=== PATIENT | male | born 1955 | race Caucasian/White ===

== ENCOUNTER 2022-01-11 09:20 | Outpatient (CLI) | payer MEDICARE, SELFPAY ==
[2022-01-11 10:40] LABS: Alanine Aminotransferase 32 U/L (16-63); Albumin Level 3.5 g/dL (3.4-5.0); Alkaline Phosphatase 75 U/L (46-116); Anion Gap 8 mmol/L (8-16); Aspartate Amino Transferase 23 U/L (15-37); Bilirubin,Total 0.6 mg/dL (0.00-1.00); Blood Urea Nitrogen 20 mg/dL (7-18); Carbon Dioxide 29 mmol/L (21-32); Chloride 102 mmol/L (98-108); Cholesterol 144 mg/dL (0-200); Estimated Glomerular Filt Rate > 60; Glucose 101 mg/dL (70-99); HDL Direct 61 mg/dL (40-60); LDL Cholesterol Calculated 68 mg/dL (<130); Osmolality Calculated 290 mOsm/kg (285-295); Potassium 4.4 mmol/L (3.5-5.1); Sodium 139 mmol/L (136-145); Total Protein 6.3 g/dL (6.4-8.2); Triglycerides 74 mg/dL (0-150)
[2022-01-11 10:41] LABS: Hematocrit 45.5 % (37.0-46.0); Hemoglobin 15.4 g/dL (12.4-15.3); Mean Corpuscular HGB Conc 33.8 g/dL (32.0-36.0); Mean Corpuscular Hemoglobin 32.8 pg (27.0-31.0); Mean Corpuscular Volume 96.8 fL (78.0-102.0); Mean Platelet Volume 10.4 fl (8.7-11.0); Platelet Count Result 238 K/mm3 (150-420); Red Cell Distribution Width 13.2 % (11.6-14.4); White Blood Count 6.8 K/mm3 (4.8-10.8)
[2022-01-11 10:45] LABS: Calcium 8.7 mg/dL (8.5-10.1)
== END 2022-01-11 09:21 | disposition home or self-care (01) ==
LOC: CHSLAB 09:23
PROVIDERS: PCP Family Medicine; Visit Provider Family Medicine
DX: E78.5 Hyperlipidemia, unspecified (principal); I10 Essential (primary) hypertension
CPT/HCPCS: 36415; 80053; 80061; 85027

== ENCOUNTER 2022-02-27 11:11 | Outpatient (CLI) | payer MEDICARE, BC, SELFPAY ==
--- NOTE | ~2022-02-27 | XR_ITS ---
EXAMINATION: XR chest 2V DATE: 02/27/2022 11:23 INDICATION: History of traumatic pneumothorax TECHNIQUE: PA and lateral views of the chest are obtained. COMPARISON: None available FINDINGS: There are multiple displaced right rib fractures. No definite pneumothorax is identified. T here is a small right pleural effusion. Airspace opacities of the right mid and lower lung zones like ly reflect atelectasis. The left lung is clear. The cardiomediastinal silhouette is normal. There are bridging osteophytes at multiple levels in the spine, consistent with diffuse idiopathic skeletal hy perostosis (DISH). A round metallic density projects in the right lung apex. IMPRESSION: 1. Multiple displaced right-sided rib fractures. No definite persistent pneumothorax identified. 2. Small right pleural effusion with likely passive atelectasis in the right mid and lower lung zones . Reviewed, dictated and finalized at location F. IMPRESSION: 1. Multiple displaced right-sided rib fractures. No definite persistent pneumot horax identified. 2. Small right pleural effusion with likely passive atelectasis in the right mi d and lower lung zones.
== END 2022-02-27 11:12 | disposition home or self-care (01) ==
LOC: CHSIMG 11:14
PROVIDERS: PCP Family Medicine; Visit Provider Family Medicine
DX: S27.0XXA Traumatic pneumothorax, initial encounter (principal)
CPT/HCPCS: 71046

== ENCOUNTER 2022-08-27 09:15 | Outpatient (CLI) | payer MEDICARE, BC, SELFPAY ==
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
== END 2022-08-27 09:16 | disposition home or self-care (01) ==
LOC: CHSIMG 09:16
PROVIDERS: PCP Family Medicine; Visit Provider Family Medicine
DX: R10.9 Unspecified abdominal pain (principal); S27.0XXA Traumatic pneumothorax, initial encounter
CPT/HCPCS: 71250; 74150

== ENCOUNTER 2023-07-09 09:06 | Outpatient (CLI) | payer MEDICARE, SELFPAY ==
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
== END 2023-07-09 09:07 | disposition home or self-care (01) ==
LOC: CHSIMG 09:07
PROVIDERS: PCP Family Medicine; Visit Provider Family Medicine
DX: J32.9 Chronic sinusitis, unspecified (principal); L72.3 Sebaceous cyst
CPT/HCPCS: 70486

== ENCOUNTER 2023-07-14 08:40 | Emergency (ER) | payer MEDICARE, SELFPAY ==
[2023-07-14 08:40] VITALS: BP 122/83; PULSE 79; RESP 18; TEMP 36; O2SAT 98
--- NOTE | 2023-07-14 09:03 | ED.DIZZY ---
HPI - Dizziness General Chief Complaint: Dizziness Stated Complaint: dizzy Time Seen by Provider: 07/14/23 09:02 Source: patient Mode of arrival: ambulatory Limitations: no limitations History of Present Illness HPI Narrative: last night around 7:00 p.m. patient got up rolled over stood up out of bed got lightheaded. He walked about 20 ft almost passed out. This happened 3 or 4 times. Vomit around 8:00 p.m. and again this morning. He had another diarrheal stool loose watery he thought maybe there were some blood in it. Release the red color. Denies any fever cough shortness of breath. He has had runny nose and sinus drainage and congestion. Denies any other bleeding. Denies any bruising rash or itching lumps or bumps or swelling numbness or tingling weakness. Denies any problems eating or drinking or voiding. Feels nauseated. Denies any heart disease lung disease diabetes stroke anemia cancer thyroid disease intestinal Disease or arthritis. Denies any other complaints. past medical history he has had 12 rib fractures from 8 ft fall from a ladder over a year ago complains of chronic pain in his sides his ribcage. Hypertension hyperlipidemia Past surgeries cyst office back and a right total knee. Related Data Home Medications Medication Instructions Recorded Confirmed fexofenadine 180 mg tablet 180 mg PO DAILY 07/04/23 07/14/23 (Allergy Relief (fexofenadine)) fluticasone furoate 50 2 inh inhalation DAILY 07/04/23 07/14/23 mcg/actuation blister powder for inhalation Allergies Allergy/AdvReac Type Severity Reaction Status Date / Time No Known Allergies Allergy Verified 07/14/23 08:41 [facility] Past Medical History Medical History Abdominal pain Allergies Hyperlipidemia Hypertension Surgical History Surgical History History of right knee surgery Right Knee Replacement Social History Social History Smoking status: Former smoker Alcohol intake: current Alcohol use details: Daily Substance use: current Substance use type: marijuana Exam Narrative: White male patient no apparent distress.? Head normocephalic, atraumatic.? Eyes conjunctiva pink sclera nonicteric.? no nystagmus. Extraocular movements are intact.? Ears externally normal.? Oropharynx is clear with moist mucous membranes without exudates.? Neck is supple nontender no lymphadenopathy.? Back is nontender.? Lungs are clear.? Heart is regular rate and rhythm without gallops or rubs.? He has a 1/6 systolic murmur right sternal border. he is orthostatic when he stands, up his heart rate goes up. Chest wall is nontender.? Abdomen is soft and nontender no hepatosplenomegaly or masses no CVA tenderness no abdominal bruits.? Extremities no cyanosis clubbing or edema.? Skin is warm and dry without rashes or lesions.? Neurological patient is alert and oriented x4.? Motor and sensory grossly intact.? Gait is normal. Course Vital Signs Vital signs: Vital Signs Temperature 36.0 C L 07/14/23 08:40 Pulse Rate 79 07/14/23 08:40 Respiratory Rate 18 07/14/23 08:40 Blood Pressure 122/83 07/14/23 08:40 Pulse Oximetry 98 07/14/23 08:40 Oxygen Delivery Room Air 07/14/23 08:40 Temperature 36.0 C L 07/14/23 08:40 Pulse Rate 79 07/14/23 08:40 Respiratory Rate 18 07/14/23 08:40 Blood Pressure 122/83 07/14/23 08:40 Pulse Oximetry 98 07/14/23 08:40 Oxygen Delivery Room Air 07/14/23 08:40 MDM - Dizziness MDM Narrative Medical decision making narrative: patient was placed in room 2 history and physical were performed with his present. IV of normal saline bolus was given and Zofran 4 mg IV were given. Labs were drawn. CBC showed H&H 11 and 31.8 otherwise was normal. CMP showed a BUN of 28 with total protein of 5.8
[2023-07-14] MEDS: ONDANSETRON INJ 4 MG/2 ML VIAL IV PUSH (09:43)
[2023-07-14] MEDS: SODIUM CHLORIDE 0.9% IV 1,000 ML 999 ML IV CONT (09:43)
[2023-07-14 09:53] LABS: Hematocrit 31.8 % (37.0-46.0); Mean Corpuscular HGB Conc 34.6 g/dL (32.0-36.0); Mean Corpuscular Hemoglobin 33.6 pg (27.0-31.0); Mean Corpuscular Volume 97.2 fL (78.0-102.0); Platelet Count Result 216 K/mm3 (150-420); Red Blood Count 3.27 M/mm3 (4.70-6.10); Red Cell Distribution Width 12.4 % (11.6-14.4); White Blood Count 7.1 K/mm3 (4.8-10.8)
[2023-07-14 10:08] LABS: Alanine Aminotransferase 25 U/L (16-63); Albumin Level 3.2 g/dL (3.4-5.0); Alkaline Phosphatase 61 U/L (46-116); Anion Gap 5 mmol/L (8-16); Aspartate Amino Transferase 14 U/L (15-37); Bilirubin,Total 0.4 mg/dL (0.00-1.00); Blood Urea Nitrogen 28 mg/dL (7-18); Calcium 8.8 mg/dL (8.5-10.1); Carbon Dioxide 30 mmol/L (21-32); Chloride 105 mmol/L (98-108); Estimated CRCL calculation 88 ml/min; Estimated Glomerular Filt Rate > 60; Glucose 106 mg/dL (70-99); Osmolality Calculated 295 mOsm/kg (285-295); Potassium 3.5 mmol/L (3.5-5.1); Sodium 140 mmol/L (136-145); Total Protein 5.8 g/dL (6.4-8.2)
[2023-07-14 10:15] LABS: Influenza A QL RT-PCR Negative (Negative); Influenza B QL RT-PCR Negative (Negative); RSV RNA, RT-PCR Negative (Negative); SARS-CoV-2 RNA PCR Negative (Negative)
[2023-07-14 10:49] VITALS: BP 136/78; PULSE 85; RESP 18; TEMP 36.6; O2SAT 99
== END 2023-07-14 10:55 | disposition home or self-care (01) ==
PROVIDERS: Emergency Provider Emergency Medicine; PCP Family Medicine
DX: K52.9 Noninfective gastroenteritis and colitis, unspecified (principal); D64.9 Anemia, unspecified; E78.5 Hyperlipidemia, unspecified; I10 Essential (primary) hypertension; Z79.899 Other long term (current) drug therapy; Z20.822 Contact with and (suspected) exposure to COVID-19
CPT/HCPCS: 36415; 80053; 85027; 87637; 96361; 96374; 99284; J2405; J7030

== ENCOUNTER 2023-09-24 10:30 | Emergency (ER) | payer MEDICARE, SELFPAY ==
[2023-09-24 10:30] VITALS: BP 141/79; PULSE 78; RESP 18; TEMP 36.7; O2SAT 96
--- NOTE | 2023-09-24 10:38 | ED.URI ---
HPI - URI/Sore Throat General Chief Complaint: Upper Respiratory Infection Stated Complaint: congestion chest tightness vomiting Time Seen by Provider: 09/24/23 10:37 Source: patient and RN notes reviewed Mode of arrival: ambulatory Limitations: no limitations History of Present Illness MD elicited complaint: nasal congestion and sinus pain Pertinent past history: sinusitis Onset (ago): day(s) (-) Consistency: constant Severity: moderate Description of mucous: purulent Able to tolerate fluids by mouth: Yes Exacerbating factors: nothing Relieving factors: nothing Associated symptoms: rhinorrhea, nasal congestion and nausea Treatments prior to arrival: other ( Flonase) Related Data Home Medications Medication Instructions Recorded Confirmed fexofenadine 180 mg tablet 180 mg PO DAILY 07/04/23 09/24/23 (Allergy Relief (fexofenadine)) fluticasone furoate 50 2 inh inhalation DAILY 07/04/23 09/24/23 mcg/actuation blister powder for inhalation amlodipine 10 mg tablet 10 mg PO DAILY 08/07/23 09/24/23 atorvastatin 80 mg tablet 80 mg PO DAILY 08/07/23 09/24/23 montelukast 10 mg tablet 10 mg PO DAILY 09/24/23 09/24/23 Allergies Allergy/AdvReac Type Severity Reaction Status Date / Time No Known Allergies Allergy Verified 09/24/23 10:39 Review of Systems Review of Systems: All systems reviewed & are unremarkable except as noted in HPI and below PMFSH Past Medical History Medical History Abdominal pain Allergies Hyperlipidemia Hypertension Surgical History Surgical History History of right knee surgery Right Knee Replacement Social History Social History Smoking status: Former smoker Alcohol intake: current Alcohol use details: Daily Substance use: current Substance use type: marijuana Lack of Transportation: No Lack of Food: Never True Current Housing: I Have Housing Concerned About Future Housing: Decline to Answer Difficulty Paying Gas/Electric Bills: Decline to Answer Difficulty Paying for Meds: Decline to Answer Currently Unemployed: Decline to Answer Education: High School Diploma/GED Difficulty w/ Childcare or Family Care: Decline to Answer Exam Const: General: healthy appearing, no acute distress and alert Nutritional Appearance: well nourished Orientation/consciousness: patient oriented x3 Limitations: no limitations HENMT: Head: normal to inspection Ears: hearing grossly normal bilaterally and external ears normal Face/Nose/Sinus: Normal external nose present and sinus tenderness ( bilateral maxillary and left frontal) Face and sinus: normal facial exam Mouth: Yes Normal oral and palatal mucosa present and Yes moist mucous membranes Throat: tonsils normal, uvula midline and posterior oropharynx abnormal cobblestoning Eyes: Conjunctivae: conjunctivae normal EOM: EOMs intact bilaterally Neck: Neck: normal visual inspection Resp: Effort & Inspection: normal respiratory effort Auscultation: clear to auscultation bilaterally Cardio: Rate: regular rate Rhythm: regular rhythm GI: GI Palp: Yes Soft to palpation and No Tenderness to palpation present (GI) Auscultation: normal bowel sounds Back/Spine/Pelvis: Cervical Spine: cervical ROM normal Thoracic/Lumbar Spine: thoraco-lumbar ROM normal Skin: General skin exam: normal color Rashes: no rashes Neuro: General: patient oriented x3, moves all extremities, no focal motor deficits and CN's II-XI intact bilaterally Speech: normal speech Gait exam (Neuro): Normal gait present Extrem: General: normal to inspection and no clubbing, cyanosis or edema Psych: Mental Status: mental status grossly normal Affect: normal affect Attitude: cooperative MDM - URI/Sore Throat Differential Diagnosis Differential diagnosis: Likely upper respiratory infection,
== END 2023-09-24 10:59 | disposition home or self-care (01) ==
LOC: CHSED 10:52
PROVIDERS: Emergency Provider Emergency Medicine; PCP Family Medicine
DX: J01.01 Acute recurrent maxillary sinusitis (principal); E78.5 Hyperlipidemia, unspecified; I10 Essential (primary) hypertension; Z79.899 Other long term (current) drug therapy; Z87.891 Personal history of nicotine dependence
CPT/HCPCS: 99283

== ENCOUNTER 2023-11-27 13:29 | Outpatient (RCR) | payer MEDICARE, SELFPAY ==
--- NOTE | 2023-11-27 14:35 | OPREHPOC ---
Outpatient Therapy Plan of Care This is a Multidisciplinary Plan of Care that may contain components documented by all disciplines (PT, OT, and ST.) PT Problem 1 PT Problem #1 Knowledge Deficit PT Goal 1 Goal Patient to demonstrate independence with HEP Target Visit 5 PT Problem 2 PT Problem #2 Pain PT Goal 1 Goal Patient to report highest pain at 2/10 with completion of house hold activities Target Visit 10 PT Problem 3 PT Problem #3 Impaired Strength PT Goal 1 Goal Patient to demonstrate 4+/5 abdominal strength to improve ability to get up from chair at PLOF Target Visit 10 PT Problem 4 PT Problem #4 Impaired Functional Mobil PT Goal 1 Goal 1. Patient to demonstrate 20% improvement on Back Index Scoring 2. Patient to lift 20# from floor to waist with no increase in abdominal pain. Target Visit 10
--- NOTE | 2023-11-27 14:35 | PTOPEVAL1 ---
Assessment and note entered by Aliyah Guerra DPT Evaluation Information Assessment Status Evaluation Diagnosis abdominal muscle strain Onset 11/20/23 Subjective Information Patient reports he was trying to lift a garage door on 11/20/23 and felt a strain in the abdominal muscles. He reports he has a history of R sided injury with 12 broken ribs and a collapsed R lung 2 years ago. He reports he has been trying to improve his core strength but continues to have injury. He reports difficulty with getting into/ out of a chair, lifting, and completing house hold tasks. He reports he is retired. Reported Pain Level Pain Score 7: Self Report Assessment PT Clinical Summary Mr. Bowen is a 68 year old male who presents to PT with abdominal strain and pain. He demonstrates decreased core strength and impaired posture limiting his ability to get up out of a chair, lift objects and complete house hold tasks. He would benefit from skilled PT to address impairments and return to PLOF. Plan of Care Interventions Electrical Stimulation,Gait Training,Manual Therapy,Mechanical Traction,Neuro Re-education, Patient/Caregiver Educati,Therapeutic Activities, Therapeutic Exercise PT Services Indicated Yes Treatment Frequency and 2x weekly for 10 visits Duration These treatments will address the objective and functional deficits as defined above. The patient will be advanced safely and appropriately in order for the patient to progress towards his/her prior level of function. Additional exercises will be introduced and as well as a comprehensive home exercise program upon discharge, if needed, ?to ensure carryover of functional gains achieved in the clinic. This treatment plan has been reviewed and agreement upon by the patient.
--- NOTE | 2023-12-12 10:44 | OPREHPOC ---
Outpatient Therapy Plan of Care This is a Multidisciplinary Plan of Care that may contain components documented by all disciplines (PT, OT, and ST.) PT Problem 1 PT Problem #1 Knowledge Deficit PT Goal 1 Goal Patient to demonstrate independence with HEP Target Visit 5 Progress Met PT Problem 2 PT Problem #2 Pain PT Goal 1 Goal Patient to report highest pain at 2/10 with completion of house hold activities Target Visit 10 Progress Not Met PT Problem 3 PT Problem #3 Impaired Strength PT Goal 1 Goal Patient to demonstrate 4+/5 abdominal strength to improve ability to get up from chair at PLOF Target Visit 10 Progress Not Met PT Problem 4 PT Problem #4 Impaired Functional Mobil PT Goal 1 Goal 1. Patient to demonstrate 20% improvement on Back Index Scoring 2. Patient to lift 20# from floor to waist with no increase in abdominal pain. Target Visit 10 Progress Met
--- NOTE | 2023-12-12 10:44 | PTOPDC ---
Assessment and note entered by Aliyah Guerra DPT Evaluation Information Assessment Status Discharge Diagnosis abdominal muscle strain Onset 11/20/23 Subjective Information patient reports he has been compliant with HEP. he reports he has noticed some improvement but did noticed yesterday when he bends over to place heavy objects down, pain increases. he would like to self discharge today. Reported Pain Level Pain Score 3: Self Report Assessment PT Clinical Summary Mr. Bowen was seen for 4 visits of skilled PT. He has shown good compliance with HEP and has been educated on proper lifting mechanics. He continues to report soreness following placing objects to the ground. He was able to lift 20# from floor to waist for 10 reps without increase in pain today. He will be discharged at this time and continue with independent HEP. Plan of Care PT Services Indicated No
== END 2023-12-12 11:08 | disposition home or self-care (01) ==
LOC: CHSPT 13:29
PROVIDERS: PCP Family Medicine; Visit Provider Family Medicine
DX: S39.011D Strain of muscle, fascia and tendon of abdomen, subsequent encounter (principal)
CPT/HCPCS: 97110; 97140; 97161

== ENCOUNTER 2023-12-23 08:37 | Outpatient (CLI) | payer MEDICARE, SELFPAY ==
--- NOTE | ~2023-12-23 | CT_ITS ---
EXAMINATION: CT abdomen pelvis w con INDICATION: Upper abdominal pain TECHNIQUE: Computed tomographic images of the abdomen and pelvis were obtained after the administrati on of 100 cc of Omnipaque 350 intravenous contrast. The dose-length product (DLP) was 956.31 mGy-cm. Automated exposure control and iterative reconstruction technique were employed. COMPARISON: 08/27/2022 FINDINGS: The lung bases are clear. The heart size is normal. The liver, spleen, pancreas, and adrena l glands are normal. Stones are present in the nondistended gallbladder. There is a moderate sized di verticulum third portion of the duodenum. Hypoattenuating lesions in the kidneys, measuring up to 5 m m on the right, are too small to characterize but likely represent cysts. There is calcified atherosc lerosis of the aorta and many of the other arteries. No pathologically enlarged abdominal or pelvic l ymph nodes are identified. No free intraperitoneal gas or evidence of bowel obstruction. Colonic dive rticulosis is present without evidence of diverticulitis. There is a left inguinal hernia containing fat. There is moderate lumbar spondylosis. IMPRESSION: 1. No CT correlate for the patient's symptoms. Cholelithiasis without evidence of cholecystitis. Reviewed, dictated and finalized at location B. 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
[2023-12-23 08:51] LABS: Basophils Absolute Auto 0.04 K/mm3 (0.00-0.10); Basophils Percent Auto 0.5 % (0.0-1.0); Eosinophils Absolute Auto 0.12 K/mm3 (0.02-0.50); Eosinophils Percent Auto 1.6 % (1.0-6.0); Hematocrit 44.7 % (37.0-46.0); Hemoglobin 15.5 g/dL (12.4-15.3); Immature Granulocyte Absolute 0.02 K/mm3 (0.00-0.00); Immature Granulocyte Percent A 0.3 % (0.0-0.0); Lymphocytes Absolute Auto 1.96 K/mm3 (1.10-4.50); Lymphocytes Percent Auto 26.4 % (18.0-42.0); Mean Corpuscular HGB Conc 34.7 g/dL (32.0-36.0); Mean Corpuscular Hemoglobin 32.6 pg (27.0-31.0); Mean Corpuscular Volume 94.1 fL (78.0-102.0); Mean Platelet Volume 9.6 fl (8.7-11.0); Monocytes Absolute Auto 0.89 K/mm3 (0.10-0.90); Neutrophils Absolute Auto 4.4 K/mm3 (1.7-7.2); Neutrophils Percent Auto 59.2 % (50.0-70.0); Platelet Count Result 239 K/mm3 (150-420); Red Blood Count 4.75 M/mm3 (4.70-6.10); White Blood Count 7.4 K/mm3 (4.8-10.8)
[2023-12-23 09:02] LABS: Estimated Glomerular Filt Rate > 60
[2023-12-23 09:06] LABS: Alanine Aminotransferase 33 U/L (16-63); Albumin Level 3.9 g/dL (3.4-5.0); Alkaline Phosphatase 72 U/L (46-116); Anion Gap 5 mmol/L (8-16); Aspartate Amino Transferase 21 U/L (15-37); Bilirubin,Total 0.7 mg/dL (0.00-1.00); Blood Urea Nitrogen 14 mg/dL (7-18); CRP < 0.5 mg/dL (0.0-0.9); Calcium 9.2 mg/dL (8.5-10.1); Carbon Dioxide 34 mmol/L (21-32); Chloride 101 mmol/L (98-108); Glucose 135 mg/dL (70-99); Lipase 47 U/L (16-77); Osmolality Calculated 292 mOsm/kg (285-295); Potassium 3.7 mmol/L (3.5-5.1); Sodium 140 mmol/L (136-145); Total Protein 6.9 g/dL (6.4-8.2)
== END 2023-12-23 08:38 | disposition home or self-care (01) ==
PROVIDERS: PCP Family Medicine; Visit Provider Family Medicine
DX: R10.10 Upper abdominal pain, unspecified (principal); K80.20 Calculus of gallbladder without cholecystitis without obstruction
CPT/HCPCS: 36415; 74177; 80053; 83690; 85025; 86140; Q9967

== ENCOUNTER 2024-01-16 07:10 | Outpatient (CLI) | payer MEDICARE, SELFPAY ==
--- NOTE | ~2024-01-16 | NM_ITS ---
EXAMINATION: NM hepatobiliary w pharm DATE: 01/16/2024 09:55 INDICATION: Generalized abdominal pain COMPARISON: None. TECHNIQUE: 5.5 mCi Tc-99m mebrofenin (Choletec) was administered intravenously. Scintigraphic images of the abdomen were obtained for one hour. 2.09 mcg sincalide (Kinevac) was administered by slow int ravenous infusion, and imaging was continued for 30 minutes. Gallbladder ejection fraction was calcul ated by the technologist. FINDINGS: There is normal clearance of radiotracer from the blood pool. There is homogeneous tracer uptake by t he liver. Activity progresses to the gallbladder and bowel. The gallbladder ejection fraction (GBEF) is 68% (normal 10-90%, but most patient with gallbladder dysfunction have GBEF < 35% which does over lap with the normal range). IMPRESSION: 1. Normal hepatobiliary scan Reviewed, dictated and finalized at location L.
--- NOTE | ~2024-01-16 | US_ITS ---
EXAMINATION: US right upper quadrant DATE: 01/16/2024 08:38 INDICATION: Generalized abdominal pain TECHNIQUE: Multiple grayscale and Doppler ultrasound images of the abdomen were obtained. COMPARISON: None FINDINGS: The pancreatic head and body are normal in appearance. The pancreatic tail is not visualized. Liver has normal echogenicity and contour, with a smooth surface. No liver lesion identified. No intrahepat ic biliary duct dilation suspected. Portal venous flow was seen in the hepatopetal, normal direction and has normal Doppler waveform. The gallbladder is normal in appearance. There is no cholelithiasis . The common bile duct measures 6 mm, which is normal. Sonographic Iyer sign was reported as negati ve by the claim inspector. Visualized portion of the right kidney demonstrates normal contour and echogen icity with no hydronephrosis. IMPRESSION: 1. Normal right upper quadrant ultrasound. Reviewed, dictated and finalized at location L.
== END 2024-01-16 07:11 | disposition home or self-care (01) ==
PROVIDERS: PCP Family Medicine; Visit Provider Surgery
DX: R10.84 Generalized abdominal pain (principal)
CPT/HCPCS: 76705; 78227; A9537; J2805

== ENCOUNTER 2024-07-09 13:37 | Outpatient (CLI) | payer OTHER, SELFPAY ==
--- NOTE | 2024-07-09 13:55 | ECHO_ITS ---
Patient Info Name: Dominick Bowen Age: 69 years : 1955 Gender: Male Ht: 72 in Wt: 235 lbs BSA: 2.36 m2 HR: 70 bpm BP: 149 / 75 mmHg Heart Rhythm: Sinus Rhythm Technical Quality: Good Exam Date: 07/09/2024 1:51 PM Exam Location: [facility] Patient Status: Outpatient Admit Date: 07/09/2024 Staff Ordering Physician: Toña Perera MD [facility] Therapist: Carlos Eduardo De Los Santos RDCS Attending Provider: Toña Perera MD Referring Physician: Trever VIRGEN; Exam Type: CA echo doppler color flow Study Info Indications - murmur Complete two-dimensional, color flow and Doppler transthoracic echocardiogram is performed. Summary 1. Complete two-dimensional, color flow and Doppler transthoracic echocardiogram is performed. 2. Left ventricular chamber dimension is normal. 3. Left ventricular systolic function is normal, estimated at 60-65%. 4. There is moderate concentric increased left ventricular wall thickness. 5. The left ventricular diastolic function is grade I diastolic dysfunction. 6. E/e' 7 is not elevated. 7. There is severe aortic valve sclerosis. 8. There is moderate aortic valve stenosis with a peak velocity of 302 cm/s, mean gradient of 26 mmHg, and aortic valve area of 1.2 cm2. 9. There is mild aortic valve regurgitation. 10. There is mild tricuspid valve regurgitation. 11. No pulmonary hypertension, estimated pulmonary arterial systolic pressure is 36 mmHg. Left Ventricle E/e' 7 is not elevated. Left ventricular chamber dimension is normal. Left ventricular systolic function is normal, estimated at 60-65%. There is moderate concentric increased left ventricular wall thickness. The left ventricular diastolic function is grade I diastolic dysfunction. Right Ventricle Right ventricular systolic function is normal and with normal TAPSE 2.8 cm. Right ventricular chamber dimension is normal. Left Atria Left atrial chamber dimension is normal. Right Atria Right atrial chamber dimension is normal. Aortic Valve The aortic valve is trileaflet. There is severe aortic valve sclerosis. There is moderate aortic valve stenosis with a peak velocity of 302 cm/s, mean gradient of 26 mmHg, and aortic valve area of 1.2 cm2. There is mild aortic valve regurgitation. Pulmonic Valve There is no pulmonic regurgitation. Mitral Valve There is no mitral valve stenosis. There is no mitral valve regurgitation. Tricuspid Valve There is mild tricuspid valve regurgitation. No pulmonary hypertension, estimated pulmonary arterial systolic pressure is 36 mmHg. Pericardium/Pleural There is no pericardial effusion. Inferior Vena Cava Normal inferior vena cava with >50% collapse upon inspiration consistent with normal right atrial pressure, 5 mmHg. Aorta The aortic root size at the sinus of Valsalva is normal. Left Ventricular Outflow Tract Name Value Normal LVOT 2D LVOT Diameter 2.1 cm LVOT Doppler LVOT Peak Velocity 105 cm/s LVOT Peak Gradient 4 mmHg LVOT Mean Gradient 3 mmHg LVOT VTI 22 cm LVOT VTI/AV VTI Ratio 0.3 LVOT Stroke Volume 80 ml
== END 2024-07-09 13:38 | disposition home or self-care (01) ==
PROVIDERS: PCP Family Medicine
DX: R01.1 Cardiac murmur, unspecified (principal); I08.2 Rheumatic disorders of both aortic and tricuspid valves
CPT/HCPCS: 93306

== ENCOUNTER 2024-07-25 14:00 | Emergency (ER) | payer OTHER, SELFPAY ==
[2024-07-25 14:07] VITALS: BP 202/85; PULSE 68; RESP 16; TEMP 35.9; O2SAT 90
[2024-07-25 14:15] VITALS: O2SAT 90
[2024-07-25 14:33] VITALS: BP 178/75; PULSE 62; RESP 18; TEMP 36.2; O2SAT 96
--- NOTE | 2024-07-25 14:34 | ED.GENADULT ---
HPI - General Adult General Chief complaint: Upper Respiratory Infection Stated complaint: sinus pressure; vomiting Time Seen by Provider: 07/25/24 14:32 History of Present Illness HPI narrative: patient with a history of allergic sinusitis is already on a second-generation antihistamine and Flonase. He reports that starting approximately 2-3 days ago he developed new and worsening frontal and maxillary sinus pain and pressure. This is associated with increased sinus drainage in his throat that causes him to cough finally and then have some episodes of post-tussive emesis. The coughing is also causing him to have some abdominal wall muscle pain and tenderness which is bothersome to him. He states that his seasonal allergies were recently exacerbated by some post hole digging activity. Patient had a similar event approximately 6 months ago and reports that his symptoms at that time were relieved with antibiotics, anti nausea medication, and muscle relaxer. He denies having any fever, chills, shortness of breath, changes in his bladder or bowel. He denies any chest pain. Related Data Home Medications Medication Instructions Recorded Confirmed fexofenadine 180 mg tablet 180 mg PO DAILY 07/04/23 07/25/24 (Allergy Relief (fexofenadine)) fluticasone furoate 50 2 inh inhalation DAILY 07/04/23 07/25/24 mcg/actuation blister powder for inhalation amlodipine 10 mg tablet 10 mg PO DAILY 08/07/23 07/25/24 atorvastatin 80 mg tablet 40 mg PO DAILY 08/07/23 07/25/24 montelukast 10 mg tablet 10 mg PO DAILY 09/24/23 07/25/24 Allergies Allergy/AdvReac Type Severity Reaction Status Date / Time No Known Allergies Allergy Verified 07/25/24 14:14 [facility] Past Medical History Medical History Abdominal pain Allergies Hyperlipidemia Hypertension Surgical History Surgical History History of right knee surgery Right Knee Replacement Social History Social History Smoking status: Former smoker Alcohol intake: current Alcohol use details: Daily Substance use: current Substance use type: marijuana Lack of Transportation: No Lack of Food: Never True Current Housing: I Have Housing Concerned About Future Housing: Decline to Answer Difficulty Paying Gas/Electric Bills: Decline to Answer Difficulty Paying for Meds: Decline to Answer Currently Unemployed: Decline to Answer Education: High School Diploma/GED Difficulty w/ Childcare or Family Care: Decline to Answer Exam Narrative: GEN: Awake, alert, and appropriate to situation. Well appearing, well nourished, nontoxic, NAD. CV: Normal rate, regular rhythm, S1S2 no M/G/R. 2+ distal pulses all extremities. No peripheral edema noted. PULM: Non-labored respiration. Clear to auscultation bilaterally. No wheezes, rales, rhonchi. GI: Abdomen soft, non -tender to palpation. No rigidity, distention or guarding.? NEURO: Normal speech. No lateralizing or focal deficits noted. HEAD: Normocephalic, atraumatic, no visible or palpable masses, depressions, or scaring. EYES: Visual acuity intact, conjunctiva clear, sclera non-icteric, pink conjunctiva. EOM intact, PERRL. EARS: External auditory canals clear and without induration or erythema. Tympanic membranes translucent, mobile, and without bulging or erythema. Ossicles normal in appearance, hearing intact. NOSE: No external lesions, Boggy nasal terminates. Tenderness over the frontal and especially over the maxillary sinuses. Pain is made worse by leaning forward. MOUTH: Oral mucosa pink. Good salivary pool.? Dentition appears healthy without bleeding or swelling, no gingivitis. Breath did not smell malodorous or of alcohol PHARYNX: Mucosa non-inflamed, no tonsillar hypertrophy or exudate, thrush or cobble stoning NODES: No anterior or posterior cerv
== END 2024-07-25 14:43 | disposition home or self-care (01) ==
PROVIDERS: Emergency Provider Family Medicine; PCP Family Medicine
DX: J01.01 Acute recurrent maxillary sinusitis (principal); I10 Essential (primary) hypertension; E78.5 Hyperlipidemia, unspecified; Z87.891 Personal history of nicotine dependence; Z79.899 Other long term (current) drug therapy
CPT/HCPCS: 99283

== ENCOUNTER 2025-03-23 14:37 | Emergency (ER) | payer MEDICARE, SELFPAY ==
[2025-03-23 14:37] VITALS: BP 176/78; PULSE 66; RESP 16; TEMP 36.6; O2SAT 100
--- OUTSIDE RECORDS SUMMARY | 2025-03-23 14:44 | XMS_ITS | Encounter Summary ---
Author Name [facility] [place] [facility] [place] [facility] [place] [facility] [place] Address [address] [place] [address] Care Team Providers Care Blindstitch Lapel Padder Name Role Phone HARRISON SANDERSON Primary Care Provider Unavailabl e EDU TIRADO Primary Care Provider Unavailabl e Insurance Providers: All historical and current Section Date Range: From patient's date of to the date document was created. This section includes the names of all active insurance providers for the patient. Insurance Provider Type of Coverage Plan Name Start of Policy Coverage End of Policy Coverage Group Number Member ID Insurance Provider's Telephone Number Policy Michel's Name Patient's Relationship to Policy Michel [facility] (WNR) MEDICARE ADVANTAGE MCR ([facility]) Feb 02, 2023 [id number] [phone] FANTASMA CARTER PATIENT [facility] (WNR) MEDICARE ADVANTAGE MCR (R) Feb 02, 2023 [id number] FANTASMA CARTER PATIENT BCBS NE(NE) PREFERRED PROVIDER ORGANIZAT ION (PPO) BRIDG ESTON E AMERI NANDINI Nov 04, 2015 [id number] FANTASMA CARTER PATIENT BCBS NE(NE) PREFERRED PROVIDER ORGANIZAT ION (PPO) BRIDG ESTON E AMERI NANDINI Nov 04, 2015 [id number] [phone] FANTASMA CARTER PATIENT [place] ([id number]) PRESCRIPT ION BRIDG ESTON E Nov 04, 2015 [id number] FANTASMA CARTER PATIENT MEDICARE (WNR) MEDICARE (M) PART A Apr 04, 2018 PART A [id number] GEETA CARTER JR PATIENT MEDICARE (WNR) MEDICARE (M) PART A Apr 04, 2018 PART A [id number] [phone] RAUL GEETA LOVELL PATIENT [employer] BC[place]) PREFERRED PROVIDER ORGANIZAT ION (PPO) BRIDG ESTON Anna AMERI NANDINI Nov 04, 2015 [id number] [phone] FANTASMA CARTER PATIENT [employer] [place]) PREFERRED PROVIDER ORGANIZAT ION (PPO) BRIDG ESTON E AMERI NANDINI Nov 04, 2015 [id number] [phone] FANTASMA CARTER PATIENT Selected Encounter This section includes the information on record at [place] for the Encounter. Date/Time Encounter Type Encounter Description Reason Pro vider Source May 26, 2024 11:25 AM Outpatient Encounter ADMIN PAT ACTIVTIES (MASNONCT) IHE Encounter Template Text not used by [place] Plan of Treatment: Future Appointments (+ 6 months) and Future Tests (+/- 45 days) The Plan of Treatment section includes future care activities for the patient from all [place] treatmentfacilities. This section includes future appointments and future orders which are active, pending or scheduled. Future Appointments This section includes appointments that were scheduled to occur 6 months from the date of the Encounter, up to a maximum of 20 appointments. The data comes from all [place] treatment facilities. Appointment Date/Time Appointment Type Appointme nt Facility Name Jul 09, 2024 02:30 PM AMBULATORY - NONE [facility] Aug 26, 2024 10:15 AM AMBULATORY - MEDICINE [facility] Lab Results: +/- 30 days of the encounter This section includes the Chemistry and Hematology Lab Results on record with [place] for the patient. Radiology Reports and Pathology Reports are provided separately, in subsequent sections. Lab Results This section contains the Chemistry/Hematology Results that were resulted 30 days before or 30 daysafter the date of the Encounter. Date/Time Source Result Type Result - Unit Interpretation Reference Range Specimen Type Comment May 27, 2024 12:[address] [facility] OCCULT BLOOD FIT X1 SCREEN (550) FECES Specim en Type: FECES No comment entered. Ordering Provider: DAYANA BOWER Report Released Date/Time: May 26, 2024 11:09 AM Reporting Lab: [address] [phone] Performing Lab: [address] [address] OCCULT BLOOD (FIT) #1 OF 1 Negative Nega tive May 05, 2024 09:[address] [facility] CBC W/DIFF BLOOD Specimen T ype: BLOOD No comment entered. Ordering Provider: CARMEN GUIDO Report Released Date/Time: May 10, 2023 10:08 AM Reporting Lab: [address] [address] Performing Lab: [address] [phone] WBC 5.4 10*3/uL 4.0-11.0 RBC 4.53 10*6/uL 4.20-5.70 HGB 14.9 g/dL 13.0-17.0 HCT 43.1 40.0-51.0 MCV 95.1 fL 82-99 MCH 32.9 pg 27-34 MCHC 34.6 g/dL 31-37 MPV 10.4 fL 8-[address] 232 10*3/uL 130-400 RDW-CV 12.5 < 15.0 NEUTROPHILS% 61.2 LYMPHS% 23.0 MONOS% 12.3 EOS% 2.2 BASOS% 0.9 IG% 0.4 NEUTROPHILS# 3.3 10*3/uL 1.5-8.0 LYMPHS# 1.2 10*3/uL 1.0-4.0 MONOS# 0.7 10*3/uL 0.2-1.0 EOS# 0.1 10*3/uL 0-0.4 BASOS# 0.1 10*3/uL 0-0.2 IG# <0.1 10*3/uL 0-0.5 NRBC% 0.0 /100{WBCs} 0-0.2 NRBC# <0.01 10*3/uL 0-0.012 May 05, 2024 09:[address] [facility] A1C % BLOOD Specimen Type: BLOOD Comment: Normal: < or = 5.6% Pre-diabetes: 5.7-6.4% Diabetes Mellitus: > or = 6.5% Values obtained from A1C measurements can vary. For typical A1C assays, a reported value of 7.0 could actually be between 6.72 and 7.28 if measured by a reference method. A reported value of 9.0 could actually be between 8.73 and 9.27. Ref: http://www.ngsp.org/CAPdata.asp Ordering Provider: CARMEN GUIDO Report Released Date/Time: May 10, 2023 10:08 AM Reporting Lab: [address] [phone] Performing Lab: [address] [address] A1C % 5.5 0.0-5.6 May 05, 2024 09:[address] [facility] COMPREHENSIVE PNL PLASMA Specime n Type: PLASMA Comment: Low-risk levels (desirable) <200 mg/dL Moderate-risk levels (borderline) 200-239 mg/dL High-risk levels: >= 240 mg/dL Normal: <150 mg/dL -Borderline High: 1580-199 mg/dL -High: 200-499 mg/dL -Very High: >500 mg/dL eGFR was calculated using the CKD-EPI Creatinine (2020) equation. Optimal: <100 mg/dL -Near Optimal/Above Optimal: 100-129 mg/dL -Borderline High: 130-159 mg/dL -High: 160-189 mg/dL -Very High: >=190 mg/dL Ordering Provider: CARMEN GUIDO Report Released Date/Time: May 10, 2023 10:08 AM Reporting Lab: [address] [phone] Performing Lab: [address] [phone] ANION GAP 7 mmol/L 5-15 EGFR 94 mL/min > 60 GLUCOSE 94 mg/dL 70-99 POTASSIUM 3.8 mmol/L 3.5-4.7 SODIUM 138 mmol/L 136-145 BILI,TOTAL 0.7 mg/dL 0.2-1.2 PROTEIN, TOTL 6.7 g/dL 5.7-8.2 ALBUMIN 4.3 g/dL 3.4-5.0 ALKAL PHOS 86 U/L 45-117 ALT 36 U/L 10-65 AST 25 U/L 10-37 UREA NITROGEN 15 mg/dL 7-21 CALCIUM, TOTAL 9.1 mg/dL 8.7-10.4 CO2 26.0 mmol/L 21.0-32.0 CHLORIDE 105 mmol/L 98-109 CREATININE 0.81 mg/dL 0.67-1.17 May 05, 2024 09:[address] [facility] LIPID PNL PLASMA Specimen T ype: PLASMA Comment: Low-risk levels (desirable) <200 mg/dL Moderate-risk levels (borderline) 200-239 mg/dL High-risk levels: >= 240 mg/dL Normal: <150 mg/dL -Borderline High: 1580-199 mg/dL -High: 200-499 mg/dL -Very High: >500 mg/dL eGFR was calculated using the CKD-EPI Creatinine (2020) equation. Optimal: <100 mg/dL -Near Optimal/Above Optimal: 100-129 mg/dL -Borderline High: 130-159 mg/dL -High: 160-189 mg/dL -Very High: >=190 mg/dL Ordering Provider: CARMEN GUIDO Report Released Date/Time: May 10, 2023 10:08 AM Reporting Lab: [address] [phone] Performing Lab: [address] [phone] DIR. HDL 44.1 mg/dL L >=60 TRIGLYCERIDES 105 mg/dL See Comment DIR LDL canc CHOL 133 mg/dL See Comment LDL (CALCULATED) 68 mg/dL See Comment May 05, 2024 09:[address] [facility] THYROID CASCADE PANEL SERUM Spe cimen Type: SERUM Comment: PSA was performed on the Vivonet Immunoassay Analyzer. Deficiency <20, Insufficiency 20-30, Sufficiency 30-100, Toxicity >100 ng/mL Ordering Provider: CARMEN GUIDO Report Released Date/Time: May 10, 2023 10:08 AM Reporting Lab: [address] [address] Performing Lab: [address] [address] TSH3 ULTRA EIA 1.734 u[IU]/mL 0.550-4.78 0 May 05, 2024 09:[address] [facility] VITAMIN D 25-HYDROXY SERUM Spec imen Type: SERUM Comment: PSA was performed on the Siemens Atellica Immunoassay Analyzer. Deficiency <20, Insufficiency 20-30, Sufficiency 30-100, Toxicity >100 ng/mL Ordering Provider: CARMEN GUIDO Report Released Date/Time: May 10, 2023 10:08 AM Reporting Lab: [address] [phone] Performing Lab: [address] [address] VITAMIN D 25-HYDROXY 32.40 ng/mL 30-100 May 05, 2024 09:[address] [facility] PSA TOTAL EIA SERUM Specimen T ype: SERUM Comment: PSA was performed on the Siemens Atellica Immunoassay Analyzer. Deficiency <20, Insufficiency 20-30, Sufficiency 30-100, Toxicity >100 ng/mL Ordering Provider: CARMEN GUIDO Report Released Date/Time: Apr 30, 2024 10:07 AM Reporting Lab: [address] [phone] Performing Lab: [address] [address] PSA TOTAL EIA 1.83 ng/mL 0.00-4.00 Encounter Notes: All associated encounter notes This section contains the clinical notes associated to the Encounter. Date/Time Encounter Note(s) Provider Source May 26, 2024 11:25 AM PHYSICIAN NOTE: LOCAL TITLE: PROVIDER/MEDICATION RECONCILIATION STANDARD TITLE: PHYSICIAN NOTE DATE OF NOTE: MAY 26, 2024@11:25:10 ENTRY DATE: MAY 26, 2024@11:25:10 AUTHOR: DAYANA BOWER EXP COSIGNER: URGENCY: STATUS: COMPLETED [facility] [address] [place] [phone] GEETA CARTER JR MAY 26, 2024 [id number] [address] [place], [place] [address] Patient: GEETA CARTER JR (: 1955) A list of reconciled medications was mailed or sent via secure messaging to the /Caregiver. The following medication list was reviewed with the patient/caregiver: The /caregiver was counseled on new medications and/or medication changes. Potential risks, benefits, and alternative to medications prescribed were discussed with /caregiver who was given an opportunity to ask questions, which were answered to the best of my ability and seemingly to their satisfaction. /caregiver was/were instructed to contact provider (means provided) with any concerns or questions. INCLUDED IN THIS LIST: Alphabetical list of active outpatient prescriptions dispensed from this [place] (local) and dispensed from another [place] or DoD facility (remote) as well as inpatient orders (local pending and active), local clinic medications, locally documented non-VA medications, and local prescriptions that have or been discontinued in the past 90 days. NOTE The display of VA prescriptions dispensed from another VA or DoD facility (remote) is limited to active outpatient prescription entries matched to National Drug File at the originating site and may not include some items such as investigational drugs, compounds, etc. NOT INCLUDED IN THIS LIST: Medications self-entered by the patient into personal health records (i.e. [facility]) are not included in this list. Non-VA medications documented outside this [place], remote inpatient orders (regardless of status) and remote clinic medications are NOT included in this list. The patient and provider must always discuss medications the patient is taking, regardless of where the medication was dispensed or obtained. Patient safety alert: Medications and allergies from [facility] facilities may be incomplete. Reference [facility] for full list. Allergies/ADRs [facility] Facilities No Allergy/ADR Data available [facility] No Allergy/ADR Data available Med Reconciliation --- Patient is taking the following medications: --- AMLODIPINE BESYLATE 10MG TAB (OUTPT Status: ) Take one-half tablet by mouth every day for blood pressure Usually Taken for: Blood pressure AMLODIPINE TAB (NON-[place] Remote: [facility] Status: ACTIVE) 5mg by mouth every day Usually Taken for: Blood pressure ASPIRIN TAB,EC (NON-[place] Remote: [facility] Status: ACTIVE) 81mg by mouth every day Usually Taken for: Blood thinner ATORVASTATIN CALCIUM 80MG TAB (OUTPT Status: ) Takeone-halftabletbymouthatbedtimefor cholesterolcallyourprovider ifyouhavemusclepain,tendernessorweakn ess Usually Taken for: Cholesterol ATORVASTATIN TAB (NON-[place] Remote: [facility] Status: ACTIVE) 40mg by mouth every day Usually Taken for: Cholesterol FEXOFENADINE HCL 180MG TAB (OUTPT Status: ) Take one tablet by mouth daily Usually Taken for: Allergies FEXOFENADINE TAB (NON-[place] Remote: [facility] Status: ACTIVE) 180mg by mouth every day Usually Taken for: Allergies FLUTICASONE PROP 50MCG 120D NASAL INHL (OUTPT Status: ) 2 sprays each nostril daily Usually Taken for: Allergies FLUTICASONE PROPRIONATE SOLN,NASAL (NON-[place] Remote: [facility] Status: ACTIVE) 2 sprays each nostril every day Usually Taken for: Allergies HCTZ 12.5/LISINOPRIL 20MG TAB (OUTPT Status: ) Take 1 tablet by mouth daily for blood pressure Usually Taken for: Blood pressure/Water pill HYDROCHLOROTHIAZIDE/LISINOPRIL TAB (NON-[place] Remote: [facility] Status: ACTIVE) 1 tablet by mouth every day Usually Taken for: Blood pressure/Water pill MONTELUKAST NA 10MG TAB (OUTPT Status: ) Take one tablet by mouth every day Usually Taken for: Breathing TRIAMCINOLONE CREAM,TOP (NON-[place] Remote: [facility] Status: ACTIVE) Thin film topically twice a day Usually Taken for: Skin /es/ DAYANA BOWER Physician Toolroom Keeper Date printed: MAY 26, 2024 11:30 DAYANA Patel [facility]
--- OUTSIDE RECORDS SUMMARY | 2025-03-23 14:44 | XMS_ITS | Continuity of Care Document ---
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 It does not include entries that were removed or entered in error. Problem Status Onset Date Problem Type Date of Resolution Comments Source Allergic Rhinitis (SCT [id number]) Active Condition [place] [facility] AR - Allergic rhinitis Active Condition [facility] Benign prostatic hyperplasia Active Condition [facility] CLBP - Chronic low back pain Active Condition [facility] Eczema Active Condition [place] [facility] Hearing loss Active Condition [facility] CS Hearing Loss (SCT [id number]) [place] [facility] HLD - Hyperlipidemia Active Condition [facility] S HTN - Hypertension Active Condition [facility] HTN - Hypertension (SCT [id number]) [place] [facility] Hyperlipidemia (SCT [id number]) [facility] Impaired glucose tolerance Active Condition [facility] Low Back Pain (SCT [id number]) Active Condition Feb 11, 2019 Entered By: FLORI WHITE Comment: L5-S1 [place] [facility] OA - Osteoarthritis Active Condition [facility] S OA - Osteoarthritis (SCT [id number]) [place] [facility] Obesity [place] [facility] Prediabetes Active [place] [facility] Diagnosis: ICD-10-CM Z71.9 Counseling, unspecified Active Diagnosis [facility] Diagnosis: ICD-10-CM Z23 Encounter for immunization Active Diagnosis [facility] Diagnosis: ICD-10-CM Z00.01 Encounter for general adult medical exam w abnormal findings Active Diagnosis [facility] Medications Combined list of outpatient medications from Department of Defense and Veterans Affairs facilities.Medications provided include 1) outpatient medications from the last 15 months, and 2) patient-reported medications. Medication Details Route Status Patient Instructions Prescription Expires Prescription Number Last Dispense Date Ordering Provider Order Date Order Qty Source AMLODIPINE BESYLATE 10MG TAB TAKE ONE-HALF TABLET BY MOUTH EVERY DAY FOR BLOOD PRESSURE ORAL ACTIVE 05/27/2025 [id number] SATHISH,CRYST AL L 2023 45 [facility] AMLODIPINE BESYLATE 10MG TAB TAKE ONE-HALF TABLET BY MOUTH EVERY DAY FOR BLOOD PRESSURE ORAL DISCONT INUED 05/14/2024 [id number] FABIOLA GUIDO 2022 45 [facility] AMLODIPINE BESYLATE 10MG TAB TAKE ONE-HALF TABLET BY MOUTH EVERY DAY ORAL ACTIVE SHANK,GLE NACE B 2018 [facility] ASPIRIN 81MG TAB,EC TAKE ONE TABLET BY MOUTH EVERY DAY ORAL ACTIVE SHANK,GLE NACE B 2018 [facility] ATORVASTATI N CA 40MG TAB TAKE ONE TABLET BY MOUTH EVERY DAY ORAL ACTIVE [place]ANK,[facility] NACE B 2018 [facility] ATORVASTATI N CA 80MG TAB TAKE ONE-HALF TABLET BY MOUTH AT BEDTIME FOR CHOLESTE ROL CALL YOUR PROVIDER IF YOU HAVE MUSCLE PAIN, TENDERNE SS OR WEAKNESS ORAL ACTIVE 05/27/2025 [id number] 5 SATHISH,CRYST AL L 2023 45 [facility] ATORVASTATI N CA 80MG TAB TAKE ONE-HALF TABLET BY MOUTH AT BEDTIME FOR CHOLESTE ROL CALL YOUR PROVIDER IF YOU HAVE MUSCLE PAIN, TENDERNE SS OR WEAKNESS ORAL DISCONT INUED 05/14/2024 [id number] FABIOLA GUIDO 2022 45 [facility] FEXOFENADIN E HCL 180MG TAB TAKE ONE TABLET BY MOUTH DAILY ORAL SUSPEND ED 05/27/2025 [id number] 5 SATHISH,CRYST AL L 2023 90 [facility] FEXOFENADIN E HCL 180MG TAB TAKE ONE TABLET BY MOUTH DAILY ORAL DISCONT INUED 05/14/2024 [id number] FABIOLA GUIDO 2022 90 [facility] FEXOFENADIN E HCL 180MG TAB TAKE ONE TABLET BY MOUTH EVERY DAY ORAL ACTIVE DIRK WHITE GREG B 2018 [facility] FLUTICASONE PROPIONATE 50MCG/SPRAY SOLN,NASAL, 16GM 2 SPRAYS EACH NOSTRIL DAILY NASAL SUSPEND ED 05/27/2025 [id number] 5 SATHISH,CRYST AL L 2023 3 [facility] FLUTICASONE PROPIONATE 50MCG/SPRAY SOLN,NASAL, 16GM 2 SPRAYS EACH NOSTRIL DAILY NASAL DISCONT INUED 05/14/2024 [id number] FABIOLA GUIDO 2022 3 [facility] FLUTICASONE PROPIONATE 50MCG/SPRAY SOLN,NASAL, 16GM SQUIRT 2 SPRAYS IN EACH NOSTRIL EVERY DAY NASAL ACTIVE DIRK WHITE JUNIORE B [address] [facility] HYDROCHLORO THIAZIDE 12.5MG/ILIANA NOPRIL 20MG TAB TAKE 1 TABLET BY MOUTH DAILY FOR BLOOD PRESSURE ORAL SUSPEND ED 05/27/2025 [id number] SATHISH,CRYST AL L 2023 90 [facility] HYDROCHLORO THIAZIDE 12.5MG/ILIANA NOPRIL 20MG TAB TAKE 1 TABLET BY MOUTH DAILY FOR BLOOD PRESSURE ORAL DISCONT INUED 05/14/2024 [id number] FABIOLA GUIDO 2022 90 [facility] HYDROCHLORO THIAZIDE 12.5MG/ILIANA NOPRIL 20MG TAB TAKE ONE TABLET BY MOUTH EVERY DAY ORAL ACTIVE DIRK WHITE GREG B 2018 [facility] MONTELUKAST NA 10MG TAB TAKE ONE TABLET BY MOUTH EVERY DAY ORAL ACTIVE 05/27/2025 [id number] 5 SATHISH,CRYST AL L 2023 90 [facility] MONTELUKAST NA 10MG TAB TAKE ONE TABLET BY MOUTH EVERY DAY ORAL DISCONT INUED 05/14/2024 [id number] FABIOLA GUIDO 2022 90 [facility] TAMSULOSIN HCL 0.4MG CAP TAKE ONE CAPSULE BY MOUTH EVERY EVENING TAKE 30 MINUTES AFTER A MEAL ORAL ACTIVE 05/27/2025 [id number] SATHISH,CRYST AL L 2023 90 [facility] TRIAMCINOLO NE ACETONIDE 0.1% CREAM,TOP APPLY THIN FILM TOPICALL Y TWO TIMES A DAY NEEDED TOPICA L ACTIVE 05/27/2025 [id number] 4 SATHISH,CRYST AL L 2023 80 [facility] TRIAMCINOLO NE ACETONIDE 0.1% CREAM,TOP APPLY THIN FILM TOPICALL Y TWICE A DAY TOPICA L ACTIVE SHANKGLE NACE B 2018 [facility] [place] [facility] Immunizations Combined list of available immunizations from the Department of Defense and Veterans Affairs facilities. Immunization Series Date Given Administered By Site Reaction Lot Number CVX Code Drug Water Quality Analyst Status Comments Source INFLUENZA, HIGH-DOSE, TRIVALENT, PF 2023 MARGY JOSHUA ROBINSON LEFT DELTO ID [id number] 135 complet ed Completed Series, [facility] ZOSTER RECOMBINANT 2 2023 MARGY JOSHUA ROBISNON RIGHT DELTO ID [id number] 187 complet ed [facility] COVID-19 (MODERNA), MRNA, LNP-S, PF, 50 MCG/0.5 ML (AGES 12+ YEARS) 2023 MARGY JOSHUA ROBINSON RIGHT DELTO ID [id number] 312 complet ed Completed Series, [facility] ZOSTER RECOMBINANT 1 2023 MARGY JOSHUA ROBINSON LEFT DELTO ID [id number] 187 complet ed [facility] PNEUMOCOCCAL CONJUGATE PCV20, POLYSACCHARID E [id number] CONJUGATE, ADJUVANT, PF 1 2022 216 complet ed HISTORICA L INFORMATI ON - FROM OTHER [facility] COVID-19 (PFIZER), MRNA, LNP-S, PF, MAJO-SUCROSE, 30 MCG/0.3 ML (AGES 12+ YEARS) 6 2022 309 complet ed HISTORICA L INFORMATI ON - FROM OTHER REGISTRY, [facility] INFLUENZA, ADJUVANTED, QUADRIVALENT, PF 1 2022 205 complet ed HISTORICA L INFORMATI ON - FROM OTHER REGISTRY, [facility] COVID-19 (MODERNA), MRNA, LNP-S, BIVALENT, PF, 50 MCG/0.5 ML OR 25MCG/0.25 ML DOSE 5 2021 229 complet ed HISTORICA L INFORMATI ON - FROM OTHER REGISTRY, [facility] INFLUENZA, HIGH-DOSE, QUADRIVALENT, PF 1 2021 197 complet ed HISTORICA L INFORMATI ON - FROM OTHER REGISTRY, [facility] INFLUENZA, UNSPECIFIED FORMULATION 2021 88 complet ed HISTORICA L INFORMATI ON - FROM PATIENT'S RECALL, [facility] COVID-19 (MODERNA), MRNA, LNP-S, PF, 100 MCG/0.5ML DOSE OR 50 MCG/0.25ML DOSE 4 2021 207 complet ed HISTORICA L INFORMATI ON - FROM OTHER REGISTRY, [facility] COVID-19 (MODERNA), MRNA, LNP-S, PF, 100 MCG/0.5ML DOSE OR 50 MCG/0.25ML DOSE 3 2020 207 complet ed HISTORICA L INFORMATI ON - FROM OTHER REGISTRY, [facility] INFLUENZA, HIGH-DOSE, QUADRIVALENT, PF 1 2020 197 complet ed HISTORICA L INFORMATI ON - FROM OTHER REGISTRY, [facility] TDAP 1 2020 115 complet ed HISTORICA L INFORMATI ON - FROM OTHER REGISTRY, [facility] COVID-19 (MODERNA), MRNA, LNP-S, PF, 100 MCG/0.5ML DOSE OR 50 MCG/0.25ML DOSE 2 2020 207 complet ed [facility] COVID-19 (MODERNA), MRNA, LNP-S, PF, 100 MCG/0.5ML DOSE OR 50 MCG/0.25ML DOSE 1 2020 207 complet ed [facility] TDAP 2018 115 complet ed adacel; [id number] exp: 021 [facility] INFLUENZA, SEASONAL, INJECTABLE 2017 141 complet ed workplace [facility] [place] [facility] Results Combined list of recent chemistry, hematology and other laboratory results from Department of Defense and Veterans Affairs, ranging from 15 months to all on record, depending upon the facility. Order Name Results Value Reference Range Date Interpretation Specimen Comments Source OCCULT BLOOD FIT X1 SCREEN (550) HEMOGLOBIN .GASTROINT ESTINAL.LO WER [PRESENCE] IN STOOL BY IMMUNOASSA Y Negative 05/27 Specimen Type: FECES No comment entered. Ordering Provider: DAYANA BOWER Report Released Date/Time: May 26, 2024 11:09 AM Reporting Lab: [address] [address] Performing Lab: [address] [address] [facility] CBC W/DIFF LEUKOCYTES [#/VOLUME] IN BLOOD BY AUTOMATED COUNT 5.4 10*3/uL 4.0 - 11.0 05/05 Specimen Type: BLOOD No comment entered. Ordering Provider: YANIQUE GUIDO Report Released Date/Time: May 10, 2023 10:08 AM Reporting Lab: [address] [address] Performing Lab: [address] [address] [facility] CBC W/DIFF ERYTHROCYT ES [#/VOLUME] IN BLOOD BY AUTOMATED COUNT 4.53 10*6/uL 4.20 - 5.70 05/05 Specimen Type: BLOOD No comment entered. Ordering Provider: YANIQUE GUIDO Report Released Date/Time: May 10, 2023 10:08 AM Reporting Lab: [address] [address] Performing Lab: [place] [phone] [facility] CBC W/DIFF HEMOGLOBIN [MASS/VOLU ME] IN BLOOD 14.9 g/dL 13.0 - 17.0 05/05 Specimen Type: BLOOD No comment entered. Ordering Provider: YANIQUE GUIDO Report Released Date/Time: May 10, 2023 10:08 AM Reporting Lab: [address] [address] Performing Lab: [address] [address] [facility] CBC W/DIFF HEMATOCRIT [VOLUME FRACTION] OF BLOOD BY AUTOMATED COUNT 43.1 40.0 - 51.0 05/05 Specimen Type: BLOOD No comment entered. Ordering Provider: YANIQUE GUIDO Report Released Date/Time: May 10, 2023 10:08 AM Reporting Lab: [address] [address] Performing Lab: [address] [address] [facility] CBC W/DIFF MCV [ENTITIC VOLUME] BY AUTOMATED COUNT 95.1 fL 82 - 99 05/05 Specimen Type: BLOOD No comment entered. Ordering Provider: YANIQUE GUIDO Report Released Date/Time: May 10, 2023 10:08 AM Reporting Lab: [address] [address] Performing Lab: [address] [address] [facility] CBC W/DIFF MCHC [MASS/VOLU ME] BY AUTOMATED COUNT 32.9 pg 27 - 34 05/05 Specimen Type: BLOOD No comment entered. Ordering Provider: YANIQUE GUIDO Report Released Date/Time: May 10, 2023 10:08 AM Reporting Lab: [address] [address] Performing Lab: [address] [address] [facility] CBC W/DIFF MCHC [MASS/VOLU ME] BY AUTOMATED COUNT 34.6 g/dL 31 - 37 05/05 Specimen Type: BLOOD No comment entered. Ordering Provider: YANIQUE GUIDO Report Released Date/Time: May 10, 2023 10:08 AM Reporting Lab: [address] [address] Performing Lab: [address] [address] [facility] CBC W/DIFF PLATELET MEAN VOLUME [ENTITIC VOLUME] IN BLOOD BY AUTOMATED COUNT 10.4 fL 8 - 12 05/05 Specimen Type: BLOOD No comment entered. Ordering Provider: YANIQUE GUIDO Report Released Date/Time: May 10, 2023 10:08 AM Reporting Lab: [address] [address] Performing Lab: [facility] [address] [address] [facility] CBC W/DIFF PLATELETS [#/VOLUME] IN BLOOD BY AUTOMATED COUNT 232 10*3/uL 130 - 400 05/05 Specimen Type: BLOOD No comment entered. Ordering Provider: YANIQUE GUIDO Report Released Date/Time: May 10, 2023 10:08 AM Reporting Lab: [address] [address] Performing Lab: [address] [address] [facility] CBC W/DIFF ERYTHROCYT E DISTRIBUTI ON WIDTH [RATIO] BY AUTOMATED COUNT 12.5 < 15.0 - 15.0 05/05 Specimen Type: BLOOD No comment entered. Ordering Provider: YANIQUE GUIDO Report Released Date/Time: May 10, 2023 10:08 AM Reporting Lab: [address] [address] Performing Lab: [address] [address] [facility] CBC W/DIFF NEUTROPHIL S/100 LEUKOCYTES IN BLOOD BY AUTOMATED COUNT 61.2 05/05 Specimen Type: BLOOD No comment entered. Ordering Provider: YANIQUE GUIDO Report Released Date/Time: May 10, 2023 10:08 AM Reporting Lab: [address] [address] Performing Lab: [address] [address] [facility] CBC W/DIFF LYMPHOCYTE S/100 LEUKOCYTES IN BLOOD BY AUTOMATED COUNT 23.0 05/05 Specimen Type: BLOOD No comment entered. Ordering Provider: YANIQUE GUIDO Report Released Date/Time: May 10, 2023 10:08 AM Reporting Lab: [address] [address] Performing Lab: [address] [address] [facility] CBC W/DIFF MONOCYTES/ 100 LEUKOCYTES IN BLOOD BY AUTOMATED COUNT 12.3 05/05 Specimen Type: BLOOD No comment entered. Ordering Provider: YANIQUE GUIDO Report Released Date/Time: May 10, 2023 10:08 AM Reporting Lab: [address] [address] Performing Lab: [facility] [address] [place] [address] [facility] CBC W/DIFF EOSINOPHIL S/100 LEUKOCYTES IN BLOOD BY AUTOMATED COUNT 2.2 05/05 Specimen Type: BLOOD No comment entered. Ordering Provider: YANIQUE GUIDO Report Released Date/Time: May 10, 2023 10:08 AM Reporting Lab: [address] [address] Performing Lab: [facility] [address] [place] [address] [facility] CBC W/DIFF BASOPHILS/ 100 LEUKOCYTES IN BLOOD BY AUTOMATED COUNT 0.9 05/05 Specimen Type: BLOOD No comment entered. Ordering Provider: YANIQUE GUIDO Report Released Date/Time: May 10, 2023 10:08 AM Reporting Lab: [address] [address] Performing Lab: [address] [address] [facility] CBC W/DIFF IMMATURE GRANULOCYT ES/100 LEUKOCYTES IN BLOOD 0.4 05/05 Specimen Type: BLOOD No comment entered. Ordering Provider: YANIQUE GUIDO Report Released Date/Time: May 10, 2023 10:08 AM Reporting Lab: [address] [address] Performing Lab: [address] [address] [facility] CBC W/DIFF NEUTROPHIL S [#/VOLUME] IN BLOOD BY AUTOMATED COUNT 3.3 10*3/uL 1.5 - 8.0 05/05 Specimen Type: BLOOD No comment entered. Ordering Provider: YANIQUE GUIDO Report Released Date/Time: May 10, 2023 10:08 AM Reporting Lab: [address] [address] Performing Lab: [address] [address] [facility] CBC W/DIFF LYMPHOCYTE S [#/VOLUME] IN BLOOD BY AUTOMATED COUNT 1.2 10*3/uL 1.0 - 4.0 05/05 Specimen Type: BLOOD No comment entered. Ordering Provider: YANIQUE GUIDO Report Released Date/Time: May 10, 2023 10:08 AM Reporting Lab: [facility] [address] [facility] [address] Performing Lab: [facility] [address] [facility] [address] [facility] CBC W/DIFF MONOCYTES [#/VOLUME] IN BLOOD BY AUTOMATED COUNT 0.7 10*3/uL 0.2 - 1.0 05/05 Specimen Type: BLOOD No comment entered. Ordering Provider: YANIQUE GUIDO Report Released Date/Time: May 10, 2023 10:08 AM Reporting Lab: [address] [address] Performing Lab: [address] [address] [facility] CBC W/DIFF EOSINOPHIL S [#/VOLUME] IN BLOOD BY AUTOMATED COUNT 0.1 10*3/uL 0 - 0.4 05/05 Specimen Type: BLOOD No comment entered. Ordering Provider: YANIQUE GUIDO Report Released Date/Time: May 10, 2023 10:08 AM Reporting Lab: [facility] [address] [place] [address] Performing Lab: [address] [address] [facility] CBC W/DIFF BASOPHILS [#/VOLUME] IN BLOOD BY AUTOMATED COUNT 0.1 10*3/uL 0 - 0.2 05/05 Specimen Type: BLOOD No comment entered. Ordering Provider: YANIQUE GUIDO Report Released Date/Time: May 10, 2023 10:08 AM Reporting Lab: [facility] [address] [place] [phone] Performing Lab: [facility] [address] [place] [address] [facility] CBC W/DIFF IMMATURE GRANULOCYT ES/100 LEUKOCYTES IN BLOOD <0.110*3 /uL 0 - 0.5 05/05 Specimen Type: BLOOD No comment entered. Ordering Provider: YANIQUE GUIDO Report Released Date/Time: May 10, 2023 10:08 AM Reporting Lab: [address] [address] Performing Lab: [facility] [address] [place] [address] [facility] CBC W/DIFF NUCLEATED ERYTHROCYT ES/100 ERYTHROCYT ES IN BLOOD 0.0 /100{WBC s} 0 - 0.2 05/05 Specimen Type: BLOOD No comment entered. Ordering Provider: YANIQUE GUIDO Report Released Date/Time: May 10, 2023 10:08 AM Reporting Lab: [place] [phone] Performing Lab: [place] [phone] [facility] CBC W/DIFF NUCLEATED ERYTHROCYT ES [#/VOLUME] IN BLOOD <0.0110* 3/uL 0 - 0.012 05/05 Specimen Type: BLOOD No comment entered. Ordering Provider: YANIQUE GUIDO Report Released Date/Time: May 10, 2023 10:08 AM Reporting Lab: [place] [phone] Performing Lab: [place] [phone] [facility] A1C % HEMOGLOBIN A1C/HEMOGL OBIN.TOTAL IN BLOOD 5.5 0.0 - 5.6 05/05 Specimen Type: BLOOD Comment: Normal: < or = 5.6% Pre-diabete s: 5.7-6.4% Diabetes Mellitus: > or = 6.5% Values obtained from A1C measurement s can vary. For typical A1C assays, a reported value of 7.0 could actually be between 6.72 and 7.28 if measured by a reference method. A reported value of 9.0 could actually be between 8.73 and 9.27. Ref: http://www. ngsp.org/[place] Pdata.asp Ordering Provider: YANIQUE GUIDO Report Released Date/Time: May 10, 2023 10:08 AM Reporting Lab: [place] [phone] Performing Lab: [place] [phone] [facility] COMPREHE NSIVE PNL ANION GAP IN SERUM OR PLASMA 7 mmol/L 5 - 15 05/05 Specimen Type: PLASMA Comment: Low-risk levels (desirable) <200 mg/dL Moderate-ri sk levels (borderline ) 200-239 mg/dL High-risk levels: >= 240 mg/dL Normal: <150 mg/dL -Borderline High: 1580-199 mg/dL -High: 200-499 mg/dL -Very High: >500 mg/dL eGFR was calculated using the CKD-EPI Creatinine (2020) equation. Optimal: <100 mg/dL -Near Optimal/Abo ve Optimal: 100-129 mg/dL -Borderline High: 130-159 mg/dL -High: 160-189 mg/dL -Very High: >=190 mg/dL Ordering Provider: YANIQUE GUIDO Report Released Date/Time: May 10, 2023 10:08 AM Reporting Lab: [address] [address] Performing Lab: [address] [address] [facility] COMPREHE NSIVE PNL GLOMERULAR FILTRATION RATE/1.73 SQ M.PREDICTE D [VOLUME RATE/AREA] IN SERUM, PLASMA OR BLOOD BY CREATININE -BASED FORMULA (CKD-EPI 2020) 94 mL/min 60 05/05 Specimen Type: PLASMA Comment: Low-risk levels (desirable) <200 mg/dL Moderate-ri sk levels (borderline ) 200-239 mg/dL High-risk levels: >= 240 mg/dL Normal: <150 mg/dL -Borderline High: 1580-199 mg/dL -High: 200-499 mg/dL -Very High: >500 mg/dL eGFR was calculated using the CKD-EPI Creatinine (2020) equation. Optimal: <100 mg/dL -Near Optimal/Abo ve Optimal: 100-129 mg/dL -Borderline High: 130-159 mg/dL -High: 160-189 mg/dL -Very High: >=190 mg/dL Ordering Provider: YANIQUE GUIDO Report Released Date/Time: May 10, 2023 10:08 AM Reporting Lab: [address] [address] Performing Lab: [address] [address] [facility] COMPREHE NSIVE PNL GLUCOSE [MASS/VOLU ME] IN SERUM OR PLASMA 94 mg/dL 70 - 99 05/05 Specimen Type: PLASMA Comment: Low-risk levels (desirable) <200 mg/dL Moderate-ri sk levels (borderline ) 200-239 mg/dL High-risk levels: >= 240 mg/dL Normal: <150 mg/dL -Borderline High: 1580-199 mg/dL -High: 200-499 mg/dL -Very High: >500 mg/dL eGFR was calculated using the CKD-EPI Creatinine (2020) equation. Optimal: <100 mg/dL -Near Optimal/Abo ve Optimal: 100-129 mg/dL -Borderline High: 130-159 mg/dL -High: 160-189 mg/dL -Very High: >=190 mg/dL Ordering Provider: YANIQUE GUIDO Report Released Date/Time: May 10, 2023 10:08 AM Reporting Lab: [address] [address] Performing Lab: [address] [address] [facility] COMPREHE NSIVE PNL POTASSIUM [MOLES/VOL UME] IN SERUM OR PLASMA 3.8 mmol/L 3.5 - 4.7 05/05 Specimen Type: PLASMA Comment: Low-risk levels (desirable) <200 mg/dL Moderate-ri sk levels (borderline ) 200-239 mg/dL High-risk levels: >= 240 mg/dL Normal: <150 mg/dL -Borderline High: 1580-199 mg/dL -High: 200-499 mg/dL -Very High: >500 mg/dL eGFR was calculated using the CKD-EPI Creatinine (2020) equation. Optimal: <100 mg/dL -Near Optimal/Abo ve Optimal: 100-129 mg/dL -Borderline High: 130-159 mg/dL -High: 160-189 mg/dL -Very High: >=190 mg/dL Ordering Provider: YANIQUE GUIDO Report Released Date/Time: May 10, 2023 10:08 AM Reporting Lab: [address] [address] Performing Lab: [address] [address] [facility] COMPREHE NSIVE PNL SODIUM [MOLES/VOL UME] IN SERUM OR PLASMA 138 mmol/L 136 - 145 05/05 Specimen Type: PLASMA Comment: Low-risk levels (desirable) <200 mg/dL Moderate-ri sk levels (borderline ) 200-239 mg/dL High-risk levels: >= 240 mg/dL Normal: <150 mg/dL -Borderline High: 1580-199 mg/dL -High: 200-499 mg/dL -Very High: >500 mg/dL eGFR was calculated using the CKD-EPI Creatinine (2020) equation. Optimal: <100 mg/dL -Near Optimal/Abo ve Optimal: 100-129 mg/dL -Borderline High: 130-159 mg/dL -High: 160-189 mg/dL -Very High: >=190 mg/dL Ordering Provider: YANIQUE GUIDO Report Released Date/Time: May 10, 2023 10:08 AM Reporting Lab: [address] [address] Performing Lab: [address] [address] [facility] COMPREHE NSIVE PNL BILIRUBIN. TOTAL [MASS/VOLU ME] IN SERUM OR PLASMA 0.7 mg/dL 0.2 - 1.2 05/05 Specimen Type: PLASMA Comment: Low-risk levels (desirable) <200 mg/dL Moderate-ri sk levels (borderline ) 200-239 mg/dL High-risk levels: >= 240 mg/dL Normal: <150 mg/dL -Borderline High: 1580-199 mg/dL -High: 200-499 mg/dL -Very High: >500 mg/dL eGFR was calculated using the CKD-EPI Creatinine (2020) equation. Optimal: <100 mg/dL -Near Optimal/Abo ve Optimal: 100-129 mg/dL -Borderline High: 130-159 mg/dL -High: 160-189 mg/dL -Very High: >=190 mg/dL Ordering Provider: YANIQUE GUIDO Report Released Date/Time: May 10, 2023 10:08 AM Reporting Lab: [address] [id number] Performing Lab: [address] [phone] [facility] COMPREHE NSIVE PNL PROTEIN [MASS/VOLU ME] IN SERUM OR PLASMA 6.7 g/dL 5.7 - 8.2 05/05 Specimen Type: PLASMA Comment: Low-risk levels (desirable) <200 mg/dL Moderate-ri sk levels (borderline ) 200-239 mg/dL High-risk levels: >= 240 mg/dL Normal: <150 mg/dL -Borderline High: 1580-199 mg/dL -High: 200-499 mg/dL -Very High: >500 mg/dL eGFR was calculated using the CKD-EPI Creatinine (2020) equation. Optimal: <100 mg/dL -Near Optimal/Abo ve Optimal: 100-129 mg/dL -Borderline High: 130-159 mg/dL -High: 160-189 mg/dL -Very High: >=190 mg/dL Ordering Provider: YANIQUE GUIDO Report Released Date/Time: May 10, 2023 10:08 AM Reporting Lab: [place] [phone] Performing Lab: [place] [phone] [facility] COMPREHE NSIVE PNL ALBUMIN [MASS/VOLU ME] IN SERUM OR PLASMA 4.3 g/dL 3.4 - 5.0 05/05 Specimen Type: PLASMA Comment: Low-risk levels (desirable) <200 mg/dL Moderate-ri sk levels (borderline ) 200-239 mg/dL High-risk levels: >= 240 mg/dL Normal: <150 mg/dL -Borderline High: 1580-199 mg/dL -High: 200-499 mg/dL -Very High: >500 mg/dL eGFR was calculated using the CKD-EPI Creatinine (2020) equation. Optimal: <100 mg/dL -Near Optimal/Abo ve Optimal: 100-129 mg/dL -Borderline High: 130-159 mg/dL -High: 160-189 mg/dL -Very High: >=190 mg/dL Ordering Provider: YANIQUE GUIDO Report Released Date/Time: May 10, 2023 10:08 AM Reporting Lab: [address] [phone] Performing Lab: [address] [phone] [facility] COMPREHE NSIVE PNL ALKALINE PHOSPHATAS E [ENZYMATIC ACTIVITY/V OLUME] IN SERUM OR PLASMA 86 U/L 45 - 117 05/05 Specimen Type: PLASMA Comment: Low-risk levels (desirable) <200 mg/dL Moderate-ri sk levels (borderline ) 200-239 mg/dL High-risk levels: >= 240 mg/dL Normal: <150 mg/dL -Borderline High: 1580-199 mg/dL -High: 200-499 mg/dL -Very High: >500 mg/dL eGFR was calculated using the CKD-EPI Creatinine (2020) equation. Optimal: <100 mg/dL -Near Optimal/Abo ve Optimal: 100-129 mg/dL -Borderline High: 130-159 mg/dL -High: 160-189 mg/dL -Very High: >=190 mg/dL Ordering Provider: YANIQUE GUIDO Report Released Date/Time: May 10, 2023 10:08 AM Reporting Lab: [address] [phone] Performing Lab: [place] [phone] [facility] COMPREHE NSIVE PNL ALANINE AMINOTRANS FERASE [ENZYMATIC ACTIVITY/V OLUME] IN SERUM OR PLASMA 36 U/L 05/05 Specimen Type: PLASMA Comment: Low-risk levels (desirable) <200 mg/dL Moderate-ri sk levels (borderline ) 200-239 mg/dL High-risk levels: >= 240 mg/dL Normal: <150 mg/dL -Borderline High: 1580-199 mg/dL -High: 200-499 mg/dL -Very High: >500 mg/dL eGFR was calculated using the CKD-EPI Creatinine (2020) equation. Optimal: <100 mg/dL -Near Optimal/Abo ve Optimal: 100-129 mg/dL -Borderline High: 130-159 mg/dL -High: 160-189 mg/dL -Very High: >=190 mg/dL Ordering Provider: YANIQUE GUIDO Report Released Date/Time: May 10, 2023 10:08 AM Reporting Lab: [address] [phone] Performing Lab: [address] [phone] [facility] COMPREHE NSIVE PNL ASPARTATE AMINOTRANS FERASE [ENZYMATIC ACTIVITY/V OLUME] IN SERUM OR PLASMA 25 U/L 05/05 Specimen Type: PLASMA Comment: Low-risk levels (desirable) <200 mg/dL Moderate-ri sk levels (borderline ) 200-239 mg/dL High-risk levels: >= 240 mg/dL Normal: <150 mg/dL -Borderline High: 1580-199 mg/dL -High: 200-499 mg/dL -Very High: >500 mg/dL eGFR was calculated using the CKD-EPI Creatinine (2020) equation. Optimal: <100 mg/dL -Near Optimal/Abo ve Optimal: 100-129 mg/dL -Borderline High: 130-159 mg/dL -High: 160-189 mg/dL -Very High: >=190 mg/dL Ordering Provider: YANIQUE GUIDO Report Released Date/Time: May 10, 2023 10:08 AM Reporting Lab: [address] [phone] Performing Lab: [place] [phone] [facility] COMPREHE NSIVE PNL UREA NITROGEN [MASS/VOLU ME] IN SERUM OR PLASMA 15 mg/dL - 05/05 Specimen Type: PLASMA Comment: Low-risk levels (desirable) <200 mg/dL Moderate-ri sk levels (borderline ) 200-239 mg/dL High-risk levels: >= 240 mg/dL Normal: <150 mg/dL -Borderline High: 1580-199 mg/dL -High: 200-499 mg/dL -Very High: >500 mg/dL eGFR was calculated using the CKD-EPI Creatinine (2020) equation. Optimal: <100 mg/dL -Near Optimal/Abo ve Optimal: 100-129 mg/dL -Borderline High: 130-159 mg/dL -High: 160-189 mg/dL -Very High: >=190 mg/dL Ordering Provider: YANIQUE GUIDO Report Released Date/Time: May 10, 2023 10:08 AM Reporting Lab: [address] [phone] Performing Lab: [address] [phone] [facility] COMPREHE NSIVE PNL CALCIUM, TOTAL 9.1 mg/dL 8.7 - 10.4 05/05 Specimen Type: PLASMA Comment: Low-risk levels (desirable) <200 mg/dL Moderate-ri sk levels (borderline ) 200-239 mg/dL High-risk levels: >= 240 mg/dL Normal: <150 mg/dL -Borderline High: 1580-199 mg/dL -High: 200-499 mg/dL -Very High: >500 mg/dL eGFR was calculated using the CKD-EPI Creatinine (2020) equation. Optimal: <100 mg/dL -Near Optimal/Abo ve Optimal: 100-129 mg/dL -Borderline High: 130-159 mg/dL -High: 160-189 mg/dL -Very High: >=190 mg/dL Ordering Provider: YANIQUE GUIDO Report Released Date/Time: May 10, 2023 10:08 AM Reporting Lab: [address] [phone] Performing Lab: [address] [phone] [facility] COMPREHE NSIVE PNL CARBON DIOXIDE, TOTAL [MOLES/VOL UME] IN SERUM OR PLASMA 26.0 mmol/L 21.0 - 32.0 05/05 Specimen Type: PLASMA Comment: Low-risk levels (desirable) <200 mg/dL Moderate-ri sk levels (borderline ) 200-239 mg/dL High-risk levels: >= 240 mg/dL Normal: <150 mg/dL -Borderline High: 1580-199 mg/dL -High: 200-499 mg/dL -Very High: >500 mg/dL eGFR was calculated using the CKD-EPI Creatinine (2020) equation. Optimal: <100 mg/dL -Near Optimal/Abo ve Optimal: 100-129 mg/dL -Borderline High: 130-159 mg/dL -High: 160-189 mg/dL -Very High: >=190 mg/dL Ordering Provider: YANIQUE GUIDO Report Released Date/Time: May 10, 2023 10:08 AM Reporting Lab: [address] [phone] Performing Lab: [address] [phone] [facility] COMPREHE NSIVE PNL CHLORIDE [MOLES/VOL UME] IN SERUM OR PLASMA 105 mmol/L 98 - 109 05/05 Specimen Type: PLASMA Comment: Low-risk levels (desirable) <200 mg/dL Moderate-ri sk levels (borderline ) 200-239 mg/dL High-risk levels: >= 240 mg/dL Normal: <150 mg/dL -Borderline High: 1580-199 mg/dL -High: 200-499 mg/dL -Very High: >500 mg/dL eGFR was calculated using the CKD-EPI Creatinine (2020) equation. Optimal: <100 mg/dL -Near Optimal/Abo ve Optimal: 100-129 mg/dL -Borderline High: 130-159 mg/dL -High: 160-189 mg/dL -Very High: >=190 mg/dL Ordering Provider: YANIQUE GUIDO Report Released Date/Time: May 10, 2023 10:08 AM Reporting Lab: [address] [phone] Performing Lab: [address] [phone] [facility] COMPREHE [facility] PNL CREATININE [MASS/VOLU ME] IN URINE 0.81 mg/dL 0.67 - 1.17 05/05 [id number]||2025-03-23 16:10:00|CT_ITS|HATCHG|Imaging|[id number]|"EXAMINATION: CT abdomen pelvis w con DATE: 03/23/2025 16:04 INDICATION: abdominal pain under left rib, n/v x 9 days TECHNIQUE: Computed tomography (CT) of the abdomen and pelvis was performed with 100 mL Omnipaque-350 intravenous contrast. Automated exposure control and iterative reconstruction technique were employe d. The dose-length product was 1071.85 mGy-cm. COMPARISON: 12/23/2023. FINDINGS: Lower thorax: Aortic valve and coronary artery calcifications. Small focus of scarring/inflammation i n the peripheral right lower lobe. Liver: Subcentimeter right liver lobe hypodensity, too small to characterize, most likely represents a cyst or hemangioma. Biliary/Gallbladder: Cholelithiasis. No inflammatory change. No bile duct dilation. Pancreas: No mass or duct dilation. Spleen: Normal. Adrenals:No mass. Kidneys: No suspicious mass, obstructing stone, or hydronephrosis. Bilateral subcentimeter hypodensit ies, too small to characterize but most likely represent cysts. GI tract: Mild distal esophageal and gastric wall edema. Uncomplicated duodenal diverticula. No small or large bowel dilation. Normal appendix. Diverticulosis without diverticulitis. Mesentery/Peritoneum: No ascites, mass, or free air. Retroperitoneum: No mass. Atherosclerotic calcifications of intra-abdominal arterial vessels. Pelvis: Mild urinary bladder wall thickening in a partially distended urinary bladder. Prostatomegaly with calcifications. Soft Tissues: Small, uncomplicated fat-containing umbilical and left inguinal hernias. Bones: No acute osseous finding. Multilevel lumbar degenerative disc disease and facet arthropathy. 2 mm retrolisthesis at L2-3. Moderate central canal stenosis at L3-4 secondary to degenerative change s. IMPRESSION: Mild esophagitis/gastritis. Otherwise, no acute abdominopelvic process detected. Reviewed, dictated and finalized at location K. IMPRESSION: Mild esophagitis/gastritis. Otherwise, no acute abdominopelvic process detected. "
--- NOTE | 2025-03-23 14:53 | PC.NURSE ---
Nasal swab obtained for Covid, RSV, Flu and taken to lab
[2025-03-23] MEDS: SODIUM CHLORIDE 0.9% IV 1,000 ML 999 ML IV CONT (15:23)
[2025-03-23] MEDS: KETOROLAC 30 MG/ML VIAL (*BKC) IV PUSH (15:24)
[2025-03-23] MEDS: ONDANSETRON INJ 4 MG/2 ML VIAL IV PUSH (15:24)
[2025-03-23] MEDS: PANTOPRAZOLE SODIUM IV 40 MG VIAL IV PUSH (15:24)
[2025-03-23 15:25] LABS: Basophils Absolute Auto 0.03 K/mm3 (0.00-0.10); Basophils Percent Auto 0.4 % (0.0-1.0); Eosinophils Absolute Auto 0.03 K/mm3 (0.02-0.50); Eosinophils Percent Auto 0.4 % (1.0-6.0); Hematocrit 46.3 % (37.0-46.0); Hemoglobin 16.2 g/dL (12.4-15.3); Immature Granulocyte Absolute 0.03 K/mm3 (0.00-0.00); Immature Granulocyte Percent A 0.4 % (0.0-0.0); Lymphocytes Absolute Auto 1.31 K/mm3 (1.10-4.50); Lymphocytes Percent Auto 16.3 % (18.0-42.0); Mean Corpuscular Hemoglobin 32.4 pg (27.0-31.0); Mean Corpuscular Volume 92.6 fL (78.0-102.0); Mean Platelet Volume 9.9 fl (8.7-11.0); Monocytes Absolute Auto 0.74 K/mm3 (0.10-0.90); Monocytes Percent Auto 9.2 % (2.0-11.0); Neutrophils Absolute Auto 5.89 K/mm3 (1.70-7.20); Neutrophils Percent Auto 73.3 % (50.0-70.0); Platelet Count Result 213 K/mm3 (150-420); Red Cell Distribution Width 12.5 % (11.6-14.4)
--- OUTSIDE RECORDS SUMMARY | 2025-03-23 15:33 | XMS_ITS | Continuity of Care Document ---
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 It does not include entries that were removed or entered in error. Problem Status Onset Date Problem Type Date of Resolution Comments Source Allergic Rhinitis (SCT [id number]) Active Condition [facility] AR - Allergic rhinitis Active Condition [facility] Benign prostatic hyperplasia Active Condition [facility]CS CLBP - Chronic low back pain Active Condition [facility] Eczema Active Condition [facility], [facility] Hearing loss Active Condition [facility] H CS Hearing Loss (SCT [id number]) Active Condition [facility] HLD - Hyperlipidemia Active Condition [facility]N - Hypertension Active Condition [facility] HTN - Hypertension (SCT 28005910) [facility] Hyperlipidemia (SCT 42570442) [facility] Impaired glucose tolerance Active Condition [facility] Low Back Pain (SCT [id number]) Active Condition Feb 11, 2019 Entered By: FLORI WHITE Comment: L5-S1 [facility] OA - Osteoarthritis Active Condition [facility] OA - Osteoarthritis (SCT [id number]) Active Condition [facility] Obesity Active Condition [facility] Prediabetes Active Condition [facility] Diagnosis: ICD-10-CM Z71.9 Counseling, unspecified Active Diagnosis [facility] Diagnosis: ICD-10-CM Z23 Encounter for immunization Active Diagnosis [facility] Diagnosis: ICD-10-CM Z00.01 Encounter for general adult [...] DAY FOR BLOOD PRESSURE ORAL ACTIVE 05/27/2025 [id number] SATHISH,CRYST AL L 2023 45 [facility] AMLODIPINE BESYLATE 10MG TAB TAKE ONE-HALF TABLET BY MOUTH EVERY DAY FOR BLOOD PRESSURE ORAL DISCONT INUED 05/14/2024 [id number] FABIOLA GUIDO 2022 45 [facility] AMLODIPINE BESYLATE 10MG TAB TAKE ONE-HALF TABLET BY MOUTH EVERY DAY ORAL ACTIVE SHANK,GLE NACE B 2018 [facility] [place] ASPIRIN 81MG TAB,EC TAKE ONE TABLET BY MOUTH EVERY DAY ORAL ACTIVE SHANK,GLE NACE B 2018 [facility] [facility] ATORVASTATI N CA 40MG TAB TAKE ONE TABLET BY MOUTH EVERY DAY ORAL ACTIVE SHANK,[facility] NACE B 2018 [facility] [place] [facility] ATORVASTATI N CA 80MG TAB TAKE ONE-HALF TABLET BY MOUTH AT BEDTIME FOR CHOLESTE ROL CALL YOUR PROVIDER IF YOU HAVE MUSCLE PAIN, TENDERNE SS OR WEAKNESS ORAL ACTIVE 05/27/2025 [id number] SATHISH,CRYST AL L 2023 45 [facility] ATORVASTATI N CA 80MG TAB TAKE ONE-HALF TABLET BY MOUTH AT BEDTIME FOR CHOLESTE ROL CALL YOUR PROVIDER IF YOU HAVE MUSCLE PAIN, TENDERNE SS OR WEAKNESS ORAL DISCONT INUED 05/14/2024 [id number] FABIOLA GUIDO 2022 45 [facility] FEXOFENADIN E HCL 180MG TAB TAKE ONE TABLET BY MOUTH DAILY ORAL SUSPEND ED 05/27/2025 [id number] SATHISH,CRYST AL L 2023 90 [facility] FEXOFENADIN E HCL 180MG TAB TAKE ONE TABLET BY MOUTH DAILY ORAL DISCONT INUED 05/14/2024 [id number] FABIOLA GUIDO 2022 90 [facility] FEXOFENADIN E HCL 180MG TAB TAKE ONE TABLET BY MOUTH EVERY DAY ORAL ACTIVE DIRK WHITE GREG B 2018 [facility] [place] FLUTICASONE PROPIONATE 50MCG/SPRAY SOLN,NASAL, 16GM 2 SPRAYS EACH NOSTRIL DAILY NASAL SUSPEND ED 05/27/2025 [id number] 5 SATHISH,CRYST AL L 2023 3 [facility] FLUTICASONE PROPIONATE 50MCG/SPRAY SOLN,NASAL, 16GM 2 SPRAYS EACH NOSTRIL DAILY NASAL DISCONT INUED 05/14/2024 [id number] 4 FABIOLA GUIDO 2022 3 [facility] FLUTICASONE PROPIONATE 50MCG/SPRAY SOLN,NASAL, 16GM SQUIRT 2 SPRAYS IN EACH NOSTRIL EVERY DAY NASAL ACTIVE DIRK WHITE JUNIORE B 2018 [facility] [place] HYDROCHLORO THIAZIDE 12.5MG/ILIANA NOPRIL 20MG TAB TAKE 1 TABLET BY MOUTH DAILY FOR BLOOD PRESSURE ORAL SUSPEND ED 05/27/2025 [id number] SATHISH,CRYST AL L 2023 90 [facility] HYDROCHLORO THIAZIDE 12.5MG/ILIANA NOPRIL 20MG TAB TAKE 1 TABLET BY MOUTH DAILY FOR BLOOD PRESSURE ORAL DISCONT INUED 05/14/2024 [id number] FABIOLA GUIDO 2022 90 [facility] HYDROCHLORO THIAZIDE 12.5MG/ILIANA NOPRIL 20MG TAB TAKE ONE TABLET BY MOUTH EVERY DAY ORAL ACTIVE DIRK WHITE GREG B 2018 [facility] [place] [facility] MONTELUKAST NA 10MG TAB TAKE ONE TABLET BY MOUTH EVERY DAY ORAL ACTIVE 05/27/2025 [id number] 5 SATHISH,CRYST AL L 2023 90 [facility] MONTELUKAST NA 10MG TAB TAKE ONE TABLET BY MOUTH EVERY DAY ORAL DISCONT INUED 05/14/2024 [id number] FABIOLA GUIDO 2022 90 [facility] TAMSULOSIN HCL 0.4MG CAP TAKE ONE CAPSULE BY MOUTH EVERY EVENING TAKE 30 MINUTES AFTER A MEAL ORAL ACTIVE 05/27/2025 [id number] SATHISH,CRYST AL L 2023 90 [facility] TRIAMCINOLO NE ACETONIDE 0.1% CREAM,TOP APPLY THIN FILM TOPICALL Y TWO TIMES A DAY NEEDED TOPICA L ACTIVE 05/27/2025 [id number] SATHISH,CRYST AL L 2023 80 [facility] TRIAMCINOLO NE ACETONIDE 0.1% CREAM,TOP APPLY THIN FILM TOPICALL Y TWICE A DAY TOPICA L ACTIVE SHANKGLE NACE B 2018 [facility] [place] [facility] Immunizations Combined list of available immunizations from the Department of Defense and Veterans Affairs facilities. Immunization Series Date Given Administered By Site Reaction Lot Number CVX Code Drug Seater Grinder Status Comments Source INFLUENZA, HIGH-DOSE, TRIVALENT, PF 2023 MARGY JOSHUA ROBINSON LEFT DELTO ID [id number] 135 complet ed Completed Series, [facility] ZOSTER RECOMBINANT 2 2023 MARGY JOSHUA ROBINSON RIGHT DELTO ID [id number] 187 complet ed [facility] COVID-19 (MODERNA), MRNA, LNP-S, PF, 50 MCG/0.5 ML (AGES 12+ YEARS) 2023 MARGY JOSHUA ROBINSON RIGHT DELTO ID [id number] 312 complet ed Completed Series, [facility] ZOSTER RECOMBINANT 1 2023 MARGY JOSHUA ROBINSON LEFT DELTO ID [id number] 187 complet ed [facility] PNEUMOCOCCAL CONJUGATE PCV20, POLYSACCHARID E [id number] CONJUGATE, ADJUVANT, PF 1 2022 216 complet ed HISTORICA L INFORMATI ON - FROM OTHER [facility] COVID-19 (PFIZER), MRNA, LNP-S, PF, MAJO-SUCROSE, 30 MCG/0.3 ML (AGES 12+ YEARS) 6 2022 309 complet ed HISTORICA L INFORMATI ON - FROM OTHER REGISTRY, [facility] INFLUENZA, ADJUVANTED, QUADRIVALENT, PF 1 2022 205 complet ed HISTORICA L INFORMATI ON - FROM OTHER REGISTRY, [facility] COVID-19 (MODERNA), MRNA, LNP-S, BIVALENT, PF, 50 MCG/0.5 ML OR 25MCG/0.25 ML DOSE 5 2021 229 complet ed HISTORICA L INFORMATI ON - FROM OTHER REGISTRY, [facility] INFLUENZA, HIGH-DOSE, QUADRIVALENT, PF 1 2021 197 complet ed HISTORICA L INFORMATI ON - FROM OTHER REGISTRY, [facility] INFLUENZA, UNSPECIFIED FORMULATION 2021 88 complet ed HISTORICA L INFORMATI ON - FROM PATIENT'S RECALL, [facility] COVID-19 (MODERNA), MRNA, LNP-S, PF, 100 MCG/0.5ML DOSE OR 50 MCG/0.25ML DOSE 4 2021 207 complet ed HISTORICA L INFORMATI ON - FROM OTHER REGISTRY, [facility] COVID-19 (MODERNA), MRNA, LNP-S, PF, 100 MCG/0.5ML DOSE OR 50 MCG/0.25ML DOSE 3 2020 207 complet ed HISTORICA L INFORMATI ON - FROM OTHER REGISTRY, [facility] INFLUENZA, HIGH-DOSE, QUADRIVALENT, PF 1 2020 197 complet ed HISTORICA L INFORMATI ON - FROM OTHER REGISTRY, [facility] TDAP 1 2020 115 complet ed HISTORICA L INFORMATI ON - FROM OTHER REGISTRY, [facility] COVID-19 (MODERNA), MRNA, LNP-S, PF, 100 MCG/0.5ML DOSE OR 50 MCG/0.25ML DOSE 2 2020 207 complet ed [facility] COVID-19 (MODERNA), MRNA, LNP-S, PF, 100 MCG/0.5ML DOSE OR 50 MCG/0.25ML DOSE 1 2020 207 complet ed [facility] TDAP 2018 115 complet ed adacel; [id number] exp: 021 [facility] INFLUENZA, SEASONAL, INJECTABLE 2017 141 complet ed workplace [facility] Results Combined list of recent [...] May 26, 2024 11:09 AM Reporting Lab: [place] [phone] Performing Lab: [place] [address] [place] [address] A1C % HEMOGLOBIN A1C/HEMOGL OBIN.TOTAL IN BLOOD [...] May 10, 2023 10:08 AM Reporting Lab: [place] [phone] Performing Lab: [place] [phone] [place] [address] CBC W/DIFF LEUKOCYTES [#/VOLUME] IN BLOOD BY AUTOMATED COUNT 5.4 10*3/uL 4.0 - 11.0 05/05 Specimen Type: BLOOD No comment entered. Ordering Provider: YANIQUE GUIDO Report Released Date/Time: May 10, 2023 10:08 AM Reporting Lab: [address] [address] Performing Lab: [place] [phone] [facility] CBC W/DIFF ERYTHROCYT ES [#/VOLUME] IN BLOOD BY AUTOMATED COUNT 4.53 10*6/uL 4.20 - 5.70 05/05 Specimen Type: BLOOD No comment entered. Ordering Provider: YANIQUE GUIDO Report Released Date/Time: May 10, 2023 10:08 AM Reporting Lab: [address] [address] Performing Lab: [address] [address] [facility] CBC W/DIFF HEMOGLOBIN [MASS/VOLU ME] IN BLOOD 14.9 g/dL 13.0 - 17.0 05/05 Specimen Type: BLOOD No comment entered. Ordering Provider: YANIQUE GUIDO Report Released Date/Time: May 10, 2023 10:08 AM Reporting Lab: [address] [phone] Performing Lab: [address] [address] [facility] CBC W/DIFF HEMATOCRIT [VOLUME FRACTION] OF BLOOD BY AUTOMATED COUNT 43.1 40.0 - 51.0 05/05 Specimen Type: BLOOD No comment entered. Ordering Provider: YANIQUE GUIDO Report Released Date/Time: May 10, 2023 10:08 AM Reporting Lab: [address] [address] Performing Lab: [address] [address] [facility] CBC W/DIFF MCV [ENTITIC VOLUME] BY AUTOMATED COUNT 95.1 fL 82 - 99 05/05 Specimen Type: BLOOD No comment entered. Ordering Provider: YANIQUE GUIDO Report Released Date/Time: May 10, 2023 10:08 AM Reporting Lab: [address] [address] Performing Lab: [address] [address] [facility] CBC W/DIFF MCHC [MASS/VOLU ME] BY AUTOMATED COUNT 32.9 pg 27 - 34 05/05 Specimen Type: BLOOD No comment entered. Ordering Provider: YANIQUE GUIDO Report Released Date/Time: May 10, 2023 10:08 AM Reporting Lab: [address] [address] Performing Lab: [address] [address] [facility] CBC W/DIFF MCHC [MASS/VOLU ME] BY AUTOMATED COUNT 34.6 g/dL 31 - 37 05/05 Specimen Type: BLOOD No comment entered. Ordering Provider: YANIQUE GUIDO Report Released Date/Time: May 10, 2023 10:08 AM Reporting Lab: [address] [address] Performing Lab: [address] [address] [facility] CBC W/DIFF PLATELET MEAN VOLUME [ENTITIC VOLUME] IN BLOOD BY AUTOMATED COUNT 10.4 fL 8 - 12 05/05 Specimen Type: BLOOD No comment entered. Ordering Provider: YANIQUE GUIDO Report Released Date/Time: May 10, 2023 10:08 AM Reporting Lab: [address] [address] Performing Lab: [address] [address] [facility] CBC W/DIFF PLATELETS [#/VOLUME] IN BLOOD BY AUTOMATED COUNT 232 10*3/uL 130 - 400 05/05 Specimen Type: BLOOD No comment entered. Ordering Provider: YANIQUE GUIDO Report Released Date/Time: May 10, 2023 10:08 AM Reporting Lab: [address] [address] Performing Lab: [address] [address] [facility] CBC W/DIFF ERYTHROCYT E DISTRIBUTI ON WIDTH [RATIO] BY AUTOMATED COUNT 12.5 < 15.0 - 15.0 05/05 Specimen Type: BLOOD No comment entered. Ordering Provider: YANIQUE GUIDO Report Released Date/Time: May 10, 2023 10:08 AM Reporting Lab: [address] [address] Performing Lab: [address] [address] [facility] CBC W/DIFF NEUTROPHIL S/100 LEUKOCYTES IN BLOOD BY AUTOMATED COUNT 61.2 05/05 Specimen Type: BLOOD No comment entered. Ordering Provider: WHITE,YANIQUE N Report Released Date/Time: May 10, 2023 10:08 AM Reporting Lab: [facility] [address] [facility] [address] Performing Lab: [facility] [address] [facility] [address] [facility] CBC W/DIFF LYMPHOCYTE S/100 LEUKOCYTES IN BLOOD BY AUTOMATED COUNT 23.0 05/05 Specimen Type: BLOOD No comment entered. Ordering Provider: YANIQUE GUIDO Report Released Date/Time: May 10, 2023 10:08 AM Reporting Lab: [facility] [address] [facility] [address] Performing Lab: [facility] [address] [facility] [address] [facility] CBC W/DIFF MONOCYTES/ 100 LEUKOCYTES IN BLOOD BY AUTOMATED COUNT 12.3 05/05 Specimen Type: BLOOD No comment entered. Ordering Provider: YANIQUE GUIDO Report Released Date/Time: May 10, 2023 10:08 AM Reporting Lab: [facility] [address] [place] [phone] Performing Lab: [facility] [address] [place] [address] [facility] CBC W/DIFF EOSINOPHIL S/100 LEUKOCYTES IN BLOOD BY AUTOMATED COUNT 2.2 05/05 Specimen Type: BLOOD No comment entered. Ordering Provider: YANIQUE GUIDO Report Released Date/Time: May 10, 2023 10:08 AM Reporting Lab: [facility] [address] [facility] [address] Performing Lab: [facility] [address] [place] [phone] [facility] CBC W/DIFF BASOPHILS/ 100 LEUKOCYTES IN BLOOD BY AUTOMATED COUNT 0.9 05/05 Specimen Type: BLOOD No comment entered. Ordering Provider: YANIQUE GUIDO Report Released Date/Time: May 10, 2023 10:08 AM Reporting Lab: [facility] [address] [facility] [address] Performing Lab: [facility] [address] [place] [phone] [facility] CBC W/DIFF IMMATURE GRANULOCYT ES/100 LEUKOCYTES IN BLOOD 0.4 05/05 Specimen Type: BLOOD No comment entered. Ordering Provider: YANIQUE GUIDO Report Released Date/Time: May 10, 2023 10:08 AM Reporting Lab: [facility] [address] [facility] [address] Performing Lab: [facility] [address] [facility] [address] [facility] CBC W/DIFF NEUTROPHIL S [#/VOLUME] IN BLOOD BY AUTOMATED COUNT 3.3 10*3/uL 1.5 - 8.0 05/05 Specimen Type: BLOOD No comment entered. Ordering Provider: YANIQUE GUIDO Report Released Date/Time: May 10, 2023 10:08 AM Reporting Lab: [facility] [address] [place] [address] Performing Lab: [facility] [address] [place] [address] [facility] CBC W/DIFF LYMPHOCYTE S [#/VOLUME] IN BLOOD BY AUTOMATED COUNT 1.2 10*3/uL 1.0 - 4.0 05/05 Specimen Type: BLOOD No comment entered. Ordering Provider: YANIQUE GUIDO Report Released Date/Time: May 10, 2023 10:08 AM Reporting Lab: [facility] [address] [place] [phone] Performing Lab: [facility] [address] [place] [address] [facility] CBC W/DIFF MONOCYTES [#/VOLUME] IN BLOOD BY AUTOMATED COUNT 0.7 10*3/uL 0.2 - 1.0 05/05 Specimen Type: BLOOD No comment entered. Ordering Provider: YANIQUE GUIDO Report Released Date/Time: May 10, 2023 10:08 AM Reporting Lab: [facility] [address] [place] [address] Performing Lab: [facility] [address] [place] [address] [facility] CBC W/DIFF EOSINOPHIL S [#/VOLUME] IN BLOOD BY AUTOMATED COUNT 0.1 10*3/uL 0 - 0.4 05/05 Specimen Type: BLOOD No comment entered. Ordering Provider: YANIQUE GUIDO Report Released Date/Time: May 10, 2023 10:08 AM Reporting Lab: [address] [address] Performing Lab: [facility] [address] [place] [address] [facility] CBC W/DIFF BASOPHILS [#/VOLUME] IN BLOOD BY AUTOMATED COUNT 0.1 10*3/uL 0 - 0.2 05/05 Specimen Type: BLOOD No comment entered. Ordering Provider: YANIQUE GUIDO Report Released Date/Time: May 10, 2023 10:08 AM Reporting Lab: [address] [address] Performing Lab: [place] [phone] [facility] CBC W/DIFF IMMATURE GRANULOCYT ES/100 LEUKOCYTES IN BLOOD <0.110*3 /uL 0 - 0.5 05/05 Specimen Type: BLOOD No comment entered. Ordering Provider: YANIQUE GUIDO Report Released Date/Time: May 10, 2023 10:08 AM Reporting Lab: [address] [address] Performing Lab: [place] [phone] [facility] CBC W/DIFF NUCLEATED ERYTHROCYT ES/100 ERYTHROCYT ES IN BLOOD 0.0 /100{WBC s} 0 - 0.2 05/05 Specimen Type: BLOOD No comment entered. Ordering Provider: YANIQUE GUIDO Report Released Date/Time: May 10, 2023 10:08 AM Reporting Lab: [address] [address] Performing Lab: [address] [address] [facility] CBC W/DIFF NUCLEATED ERYTHROCYT ES [#/VOLUME] IN BLOOD <0.0110* 3/uL 0 - 0.012 05/05 Specimen Type: BLOOD No comment entered. Ordering Provider: YANIQUE GUIDO Report Released Date/Time: May 10, 2023 10:08 AM Reporting Lab: [address] [address] Performing Lab: [place] [phone] [facility] COMPREHE NSIVE PNL ANION GAP IN SERUM [...] May 10, 2023 10:08 AM Reporting Lab: [address] [address] Performing Lab: [address] [address] [facility] COMPREHE NSIVE PNL GLOMERULAR FILTRATION RATE/1.73 SQ [...] May 10, 2023 10:08 AM Reporting Lab: [address] [address] Performing Lab: [address] [address] [facility] COMPREHE NSIVE PNL GLUCOSE [MASS/VOLU ME] IN [...] May 10, 2023 10:08 AM Reporting Lab: [address] [address] Performing Lab: [address] [address] [facility] COMPREHE NSIVE PNL POTASSIUM [MOLES/VOL UME] IN [...] May 10, 2023 10:08 AM Reporting Lab: [address] [address] Performing Lab: [address] [address] [facility] COMPREHE NSIVE PNL SODIUM [MOLES/VOL UME] IN [...] May 10, 2023 10:08 AM Reporting Lab: [address] [address] Performing Lab: [address] [address] [facility] COMPREHE NSIVE PNL BILIRUBIN. TOTAL [MASS/VOLU ME] [...] May 10, 2023 10:08 AM Reporting Lab: [address] [address] Performing Lab: [address] [address] [facility] COMPREHE NSIVE PNL PROTEIN [MASS/VOLU ME] IN [...] May 10, 2023 10:08 AM Reporting Lab: [place] [phone] Performing Lab: [place] [phone] [facility] COMPREHE NSIVE PNL ALBUMIN [MASS/VOLU ME] IN [...] May 10, 2023 10:08 AM Reporting Lab: [address] [address] Performing Lab: [address] [address] [facility] COMPREHE NSIVE PNL ALKALINE PHOSPHATAS E [ENZYMATIC [...] May 10, 2023 10:08 AM Reporting Lab: [address] [address] Performing Lab: [place] [phone] [facility] COMPREHE NSIVE PNL ALANINE AMINOTRANS FERASE [ENZYMATIC [...] May 10, 2023 10:08 AM Reporting Lab: [address] [address] Performing Lab: [address] [address] [facility] COMPREHE NSIVE PNL ASPARTATE AMINOTRANS FERASE [ENZYMATIC [...] May 10, 2023 10:08 AM Reporting Lab: [address] [address] Performing Lab: [place] [phone] [facility] COMPREHE NSIVE PNL UREA NITROGEN [MASS/VOLU ME] [...] May 10, 2023 10:08 AM Reporting Lab: [address] [address] Performing Lab: [address] [address] [facility] COMPREHE NSIVE PNL CALCIUM, TOTAL 9.1 mg/dL [...] May 10, 2023 10:08 AM Reporting Lab: [address] [phone] Performing Lab: [address] [address] [facility] COMPREHE NSIVE PNL CARBON DIOXIDE, TOTAL [MOLES/VOL [...] May 10, 2023 10:08 AM Reporting Lab: [address] [address] Performing Lab: [address] [address] [facility] COMPREHE NSIVE PNL CHLORIDE [MOLES/VOL UME] IN [...] May 10, 2023 10:08 AM Reporting Lab: [facility] [address] [facility] [address] Performing Lab: [place] [id number] [facility] [address] [facility] COMPREHE NSIVE PNL CREATININE [MASS/VOLU ME] IN URINE 0.81 mg/dL 0.67 - 1.17 05/05 [id number]|2025-03-23 16:33:00|2025-03-23 16:33:00|ED_ITS|SHAWNJ|Health Information Management|[id number]|"HPI - Abdominal Pain General Chief Complaint: Abdominal Pain Stated Complaint: vomiting; sinus drainage Time Seen by Provider: 03/23/25 14:55 Source: patient Mode of arrival: ambulatory Limitations: no limitations History of Present Illness HPI narrative: Patient is a 69-year-old male with a significant past medical history presents today for abdominal pain. His abdominal pain is about a 7 of 10. He says that he has felt sick with nausea vomiting and also has upper respiratory infection symptoms as well. Cough, cold, congestion. He has had symptoms for last 3 days now. He is taking OTC medications with no relief. MD elicited complaint: abdominal pain Pertinent past history: none Onset (ago): day(s) Pain Consistency: intermittent Location: diffuse Severity: moderate Pain scale (0-10): 6 Quality: cramping and stabbing Radiation: epigastric Migration to: LLQ Exacerbating factors: eating, vomiting and medication Relieving factors: nothing Context: confirms possible food poisoning Associated symptoms: denies other symptoms Treatments prior to arrival: NSAIDs Related Data Home Medications Medication Instructions Recorded Confirmed Last Taken Type fexofenadine 180 mg tablet 180 mg PO DAILY 07/04/23 08/05/24 Unknown History (Allergy Relief (fexofenadine)) fluticasone furoate 50 2 inh inhalation DAILY 07/04/23 08/05/24 Unknown History mcg/actuation blister powder for inhalation amlodipine 10 mg tablet 10 mg PO DAILY 08/07/23 08/05/24 Unknown History atorvastatin 80 mg tablet 40 mg PO DAILY 08/07/23 08/05/24 Unknown History montelukast 10 mg tablet 10 mg PO DAILY 09/24/23 08/05/24 Unknown History Allergies Allergy/AdvReac Type Severity Reaction Status Date / Time No Known Allergies Allergy Verified 03/23/25 14:44 Review of Systems 2 Review of Systems: All systems reviewed & are unremarkable except as noted in HPI and below ROS unobtainable: Yes unobtainable due to endotracheal tube Constitutional: Constitutional: Reports as per HPI Eyes: Eyes: Reports no additional eye complaints ENT: Reports system reviewed and no additional complaints, except as documented Cardiovascular: Cardiovascular: Reports no additional cardiovascular complaints Respiratory: Respiratory: Reports no additional respiratory complaints Gastrointestinal: Gastrointestinal: Reports as per HPI, Reports abdominal pain, Reports nausea and Reports vomiting Musculoskeletal: Musculoskeletal: Reports no additional musculoskeletal complaints Integumentary/Breasts: Skin/Breast: Reports system reviewed and no additional complaints, except as docu and Reports as per HPI Neurologic: Reports system reviewed and no additional complaints, except as documented Psychiatric: Psychiatric: Reports no additional psychiatric complaints Endocrine: Endocrine: Reports no additional endocrine complaints Hematologic/Lymphatic: Hematologic/Lymphatic: Reports no additional hematologic/lymphatic complaints Allergic/Immunologic: Allergic/Immunologic: Reports no additional allergic/immunologic complaints [facility] Past Medical History Medical History Abdominal pain Allergies Hyperlipidemia Hypertension Surgical History Surgical History History of right knee surgery Right Knee Replacement Social History Social History Smoking status: Former smoker Alcohol intake: current Alcohol use details: Daily Substance use: current Substance use type: marijuana Lack of Transportation: No Lack of Food: Never True Current Housing: I Have Housing Concerned About Future Housing: Decline to Answer Difficulty Paying Gas/Electric Bills: Decline to Answer Difficulty Paying for Meds: Decline to Answer Currently Unemployed: Decline to Answer Education: High School Diploma/GED Difficulty w/ Childcare or Family Care: Decline to Answer Exam 2 Const: General: healthy appearing Nutritional Appearance: well nourished Orientation/consciousness: patient oriented x3 HENMT: Head: normal to inspection Ears: external ears normal F kenij/Nose/Sinus: Normal external nose present Face and sinus: normal facial exam Eyes: Conjunctivae: conjunctivae normal Pupils: Equal, round and reactive pupils present EOM: EOMs intact bilaterally Direct Ophthalmoscopy: no photophobia Neck: Neck: normal visual inspection Chest: Chest palpation & inspection: normal inspection of the chest Resp: Effort & Inspection: normal respiratory effort Auscultation: clear to auscultation bilaterally Cardio: Rate: regular rate Rhythm: regular rhythm Heart sounds: Murmur heart sound present GI: GI Palp: Yes Tenderness to palpation present (GI), Yes Guarding due to palpation present (GI) and Yes Rigid due to palpation Auscultation: H yperactive bowel sounds present Back/Spine/Pelvis: Back: no CVA tenderness Skin: General skin exam: normal color Rashes: no rashes Wounds: no wounds Neuro: General: patient oriented x3 Cranial nerves: Yes Nystagmus not present Speech: normal speech Gait exam (Neuro): Normal gait present Extrem: General: normal to inspection Psych: Mental Status: mental status grossly normal Affect: normal affect Attitude: cooperative Course Vital Signs Vital signs: Vital Signs Temperature 97.9 F 03/23/25 14:37 Pulse Rate 66 03/23/25 14:37 Respiratory Rate 16 03/23/25 14:37 Blood Pressure 176/78 H 03/23/25 14:37 Pulse Oximetry 100 03/23/25 14:37 Oxygen Delivery Room Air 03/23/25 14:37 Temperature 97.9 F 03/23/25 14:37 Pulse Rate 66 03/23/25 14:37 Respiratory Rate 16 03/23/25 14:37 Blood Pressure 176/78 H 03/23/25 14:37 Pulse Oximetry 100 03/23/25 14:37 Oxygen Delivery Room Air 03/23/25 14:37 MDM - Abdominal Pain MDM Narrative Medical decision making narrative: Patient has had severe abdominal pain for last couple of days. He has tried OTC medications with no relief. Because the severity of the abdominal pain and being nonlocalized will do CT the abdomen pelvis with contrast to check for any acute abnormalities. Also give him IV fluids because he has been vomiting a lot and is very dehydrated. Over basic labs work as well. CT scan showed gastritis Differential Diagnosis Differential diagnosis: Likely abdominal pain and gastroenteritis Medical Records Attestation: I reviewed the patient's medical records. Lab Data Attestation: I reviewed the patient's lab results. 03/23/25 15:19 03/23/25 15:19 Labs: Lab Results 03/23/25 03/23/25 03/23/25 Range/Units 15:08 15:19 16:12 WBC 8.0 (4.8-10.8) K/mm3 RBC 5.00 (4.70-6.10) M/mm3 Hgb 16.2 H (12.4-15.3) g/dL Hct 46.3 H (37.0-46.0) % MCV 92.6 (78.0-102.0) fL MCH 32.4 H (27.0-31.0) pg MCHC 35.0 (32-36) g/dL RDW 12.5 (11.6-14.4) % Plt Count 213 (150-420) K/mm3 MPV 9.9 (8.7-11.0) fl Immature Gran % (Auto) 0.4 H (0.0-0.0) % Neut % (Auto) 73.3 H (50.0-70.0) % Lymph % (Auto) 16.3 L (18.0-42.0) % [place] % (Auto) 9.2 (2.0-11.0) % Eos % (Auto) 0.4 L (1.0-6.0) % Baso % (Auto) 0.4 (0.0-1.0) % Lymph # (Auto) 1.31 (1.10-4.50) K/mm3 [place] # (Auto) 0.74 (0.10-0.90) K/mm3 Eos # (Auto) 0.03 (0.02-0.50) K/mm3 Baso # (Auto) 0.03 (0.00-0.10) K/mm3 Abs Immat Gran (auto) 0.03 H (0.00-0.00) K/mm3 Absolute Neuts (auto) 5.89 (1.70-7.20) K/mm3 Absolute Nucleated RBC 0.00 (0.00-0.00) K/mm3 Nucleated RBC % 0.0 (0-0.0) % Sodium 135 L (137-145) mmol/L Potassium 3.8 (3.4-5.0) mmol/L Chloride 103 (98-107) mmol/L Carbon Dioxide 29 (22-30) mmol/L Anion Gap 3 L (4-12) mmol/L BUN 21 H (9-20) mg/dL Creatinine 0.83 (0.7-1.3) mg/dL Estim Creat Clear Calc 89 ml/min Estimated GFR > 60 (59 - ) Glucose 144 H (65-110) mg/dL Calculated Osmolality 286 (285-295) mOsm/kg Lactic Acid 1.3 (0.4-2.0) mmol/L Calcium 8.5 (8.4-10.2) mg/dL Total Bilirubin 0.8 (0.2-1.3) mg/dL AST 35 (17-59) U/L ALT 40 (6-50) U/L Alkaline Phosphatase 53 (38-126) U/L Total Protein 6.5 (6.3-8.2) g/dL Albumin 3.9 (3.5-5.1) g/dL Lipase 79 (23-300) U/L Urine Color Light yellow (Yellow) Urine Appearance Clear (Clear) Urine pH 6.0 (5.0-8.0) Ur Specific [place] <= 1.005 L (1.010-1.020) Urine Protein Negative (Negative) Urine Glucose (UA) Negative (Negative) Urine Ketones Negative (Negative) Ur Blood (Man) Trace-intact H (Negative) Urine Nitrate Negative (Negative) Urine Bilirubin Negative (Negative) Urine Urobilinogen 0.2 (0.2-1.0) mg/dL Leukocyte Esterase Rfl Negative (Negative) RYAN/UL Influenza A (RT-PCR) Negative (Negative) Influenza B (RT-PCR) Negative (Negative) RSV (RT-PCR) Negative (Negative) SARS-CoV-2 RNA (RT-PCR) Negative (Negative) ABG Data Attestation: I personally reviewed and interpreted this ABG as follows: Imaging Data Attestation: I personally reviewed and interpreted this imaging study as follows: Radiologist's impression: ITS Impressions Abdomen/Pelvis CT 03/23/25 16:10 IMPRESSION: Mild esophagitis/gastritis. Otherwise, no acute abdominopelvic process detected. Discharge Plan Discharge Clinical Impression: Gastroenteritis, Abdominal pain Patient Disposition: Home Condition: Stable Instructions: Antibiotic Form, Abdominal Pain (ED) Patient Language: Belizean Prescriptions: New metronidazole 500 mg tablet 500 mg PO Q8H 7 Days Qty: 21 0RF ciprofloxacin HCl 500 mg tablet 500 mg PO Q12H Qty: 14 0RF No Action montelukast 10 mg Tablet 10 mg PO DAILY amlodipine 10 mg tablet 10 mg PO DAILY atorvastatin 80 mg tablet 40 mg PO DAILY fexofenadine [Allergy Relief (fexofenadine)] 180 mg tablet 180 mg PO DAILY fluticasone furoate 50 mcg/actuation blister with device 2 inh inhalation DAILY lisinopril-hydrochlorothiazide 20-12.5 mg tablet See Rx Instructions .ROUTE .COMPLEX Qty: 90 3RF Dose Instruction: TAKE 1 TABLET BY MOUTH EVERY DAY Rx Instructions: TAKE 1 TABLET BY MOUTH EVERY DAY cyclobenzaprine 10 mg tablet See Rx Instructions .ROUTE .COMPLEX Qty: 14 2RF Dose Instruction: 10 MG ORALLY BEDTIME FOR ABDOMINAL MUSCLE PAIN NIGHTLY FOR ABDOMINAL MUSCLE PAIN Rx Instructions: 10 MG ORALLY BEDTIME FOR ABDOMINAL MUSCLE PAIN NIGHTLY FOR ABDOMINAL MUSCLE PAIN Follow-up/Referrals: Sheldon Trevizo DO [Primary Care Provider] - Time of Disposition: 16:46 "
[2025-03-23 15:40] LABS: Alanine Aminotransferase 40 U/L (6-50); Albumin Level 3.9 g/dL (3.5-5.1); Alkaline Phosphatase 53 U/L (38-126); Anion Gap 3 mmol/L (4-12); Aspartate Amino Transferase 35 U/L (17-59); Bilirubin,Total 0.8 mg/dL (0.2-1.3); Blood Urea Nitrogen 21 mg/dL (9-20); Calcium 8.5 mg/dL (8.4-10.2); Carbon Dioxide 29 mmol/L (22-30); Chloride 103 mmol/L (98-107); Estimated CRCL calculation 89 ml/min; Estimated Glomerular Filt Rate > 60; Glucose 144 mg/dL (65-110); Lactic Acid Reflex 1.3 mmol/L (0.4-2.0); Lipase 79 U/L (23-300); Osmolality Calculated 286 mOsm/kg (285-295); Potassium 3.8 mmol/L (3.4-5.0); Sodium 135 mmol/L (137-145); Total Protein 6.5 g/dL (6.3-8.2)
[2025-03-23 16:25] LABS: Influenza A QL RT-PCR Negative (Negative); Influenza B QL RT-PCR Negative (Negative); RSV RNA, RT-PCR Negative (Negative); SARS-CoV-2 RNA PCR Negative (Negative)
[2025-03-23 16:31] LABS: Add Urine Microscopic? NO; Appearance Urine Clear (Clear); Bilirubin Urine Negative (Negative); Blood Urine Trace-intact (Negative); Color Urine Light Yellow (Yellow); Glucose Urine UA Negative (Negative); Ketones Urine Negative (Negative); Leukocyte Esterase Ur Negative LEU/UL (Negative); Nitrate Urine Negative (Negative); Protein Urine Negative (Negative); Specific Grav Ur <= 1.005 (1.010-1.020); Urobilinogen Urine 0.2 mg/dL (0.2-1.0)
--- NOTE | 2025-03-23 16:33 | ED.ABDPAIN ---
HPI - Abdominal Pain General Chief Complaint: Abdominal Pain Stated Complaint: vomiting; sinus drainage Time Seen by Provider: 03/23/25 14:55 Source: patient Mode of arrival: ambulatory Limitations: no limitations History of Present Illness HPI narrative: Patient is a 69-year-old male with a significant past medical history presents today for abdominal pain. His abdominal pain is about a 7 of 10. He says that he has felt sick with nausea vomiting and also has upper respiratory infection symptoms as well. Cough, cold, congestion. He has had symptoms for last 3 days now. He is taking OTC medications with no relief. MD elicited complaint: abdominal pain Pertinent past history: none Onset (ago): day(s) Pain Consistency: intermittent Location: diffuse Severity: moderate Pain scale (0-10): 6 Quality: cramping and stabbing Radiation: epigastric Migration to: LLQ Exacerbating factors: eating, vomiting and medication Relieving factors: nothing Context: confirms possible food poisoning Associated symptoms: denies other symptoms Treatments prior to arrival: NSAIDs Related Data Home Medications Medication Instructions Recorded Confirmed Last Taken Type fexofenadine 180 mg tablet 180 mg PO DAILY 07/04/23 08/05/24 Unknown History (Allergy Relief (fexofenadine)) fluticasone furoate 50 2 inh inhalation DAILY 07/04/23 08/05/24 Unknown History mcg/actuation blister powder for inhalation amlodipine 10 mg tablet 10 mg PO DAILY 08/07/23 08/05/24 Unknown History atorvastatin 80 mg tablet 40 mg PO DAILY 08/07/23 08/05/24 Unknown History montelukast 10 mg tablet 10 mg PO DAILY 09/24/23 08/05/24 Unknown History Allergies Allergy/AdvReac Type Severity Reaction Status Date / Time No Known Allergies Allergy Verified 03/23/25 14:44 Review of Systems Review of Systems: All systems reviewed & are unremarkable except as noted in HPI and below ROS unobtainable: Yes unobtainable due to endotracheal tube Constitutional: Constitutional: Reports as per HPI Eyes: Eyes: Reports no additional eye complaints ENT: Reports system reviewed and no additional complaints, except as documented Cardiovascular: Cardiovascular: Reports no additional cardiovascular complaints Respiratory: Respiratory: Reports no additional respiratory complaints Gastrointestinal: Gastrointestinal: Reports as per HPI, Reports abdominal pain, Reports nausea and Reports vomiting Musculoskeletal: Musculoskeletal: Reports no additional musculoskeletal complaints Integumentary/Breasts: Skin/Breast: Reports system reviewed and no additional complaints, except as docu and Reports as per HPI Neurologic: Reports system reviewed and no additional complaints, except as documented Psychiatric: Psychiatric: Reports no additional psychiatric complaints Endocrine: Endocrine: Reports no additional endocrine complaints Hematologic/Lymphatic: Hematologic/Lymphatic: Reports no additional hematologic/lymphatic complaints Allergic/Immunologic: Allergic/Immunologic: Reports no additional allergic/immunologic complaints [facility] Past Medical History Medical History Abdominal pain Allergies Hyperlipidemia Hypertension Surgical History Surgical History History of right knee surgery Right Knee Replacement Social History Social History Smoking status: Former smoker Alcohol intake: current Alcohol use details: Daily Substance use: current Substance use type: marijuana Lack of Transportation: No Lack of Food: Never True Current Housing: I Have Housing Concerned About Future Housing: Decline to Answer Difficulty Paying Gas/Electric Bills: Decline to Answer Difficulty Paying for Meds: Decline to Answer Currently Unemployed: Decline to Answer Education: High School Diploma/GED Difficulty w/ Childcare or Family Care: Decline to Answer Exam Const: General: healthy appearing Nutritional Appearance: well nourished Orientation/consciousness: patient oriented x3 HENMT: Head: normal to inspection Ears: external ears normal Face/Nose/Sinus: Normal external nose present Face and sinus: normal facial exam Eyes: Conjunctivae: conjunctivae normal Pupils: Equal, round and reactive pupils present EOM: EOMs intact bilaterally Direct Ophthalmoscopy: no photophobia Neck: Neck: normal visual inspection Chest: Chest palpation & inspection: normal inspection of the chest Resp: Effort & Inspection: normal respiratory effort Auscultation: clear to auscultation bilaterally Cardio: Rate: regular rate Rhythm: regular rhythm Heart sounds: Murmur heart sound present GI: GI Palp: Yes Tenderness to palpation present (GI), Yes Guarding due to palpation present (GI) and Yes Rigid due to palpation Auscultation: Hyperactive bowel sounds present Back/Spine/Pelvis: Back: no CVA tenderness Skin: General skin exam: normal color Rashes: no rashes Wounds: no wounds Neuro: General: patient oriented x3 Cranial nerves: Yes Nystagmus not present Speech: normal speech Gait exam (Neuro): Normal gait present Extrem: General: normal to inspection Psych: Mental Status: mental status grossly normal Affect: normal affect Attitude: cooperative Course Vital Signs Vital signs: Vital Signs Temperature 97.9 F 03/23/25 14:37 Pulse Rate 66 03/23/25 14:37 Respiratory Rate 16 03/23/25 14:37 Blood Pressure 176/78 H 03/23/25 14:37 Pulse Oximetry 100 03/23/25 14:37 Oxygen Delivery Room Air 03/23/25 14:37 Temperature 97.9 F 03/23/25 14:37 Pulse Rate 66 03/23/25 14:37 Respiratory Rate 16 03/23/25 14:37 Blood Pressure 176/78 H 03/23/25 14:37 Pulse Oximetry 100 03/23/25 14:37 Oxygen Delivery Room Air 03/23/25 14:37 MDM - Abdominal Pain MDM Narrative Medical decision making narrative: Patient has had severe abdominal pain for last couple of days. He has tried OTC medications with no relief. Because the severity of the abdominal pain and being nonlocalized will do CT the abdomen pelvis with contrast to check for any acute abnormalities. Also give him IV fluids because he has been vomiting a lot and is very dehydrated. Over basic labs work as well. CT scan showed gastritis Differential Diagnosis Differential diagnosis: Likely abdominal pain and gastroenteritis Medical Records Attestation: I reviewed the patient's medical records. Lab Data Attestation: I reviewed the patient's lab results. 03/23/25 15:19 03/23/25 15:19 Labs: Lab Results 03/23/25 03/23/25 03/23/25 Range/Units 15:08 15:19 16:12 WBC 8.0 (4.8-10.8) K/mm3 RBC 5.00 (4.70-6.10) M/mm3 Hgb 16.2 H (12.4-15.3) g/dL Hct 46.3 H (37.0-46.0) % MCV 92.6 (78.0-102.0) fL MCH 32.4 H (27.0-31.0) pg MCHC 35.0 (32-36) g/dL RDW 12.5 (11.6-14.4) % Plt Count 213 (150-420) K/mm3 MPV 9.9 (8.7-11.0) fl Immature Gran % (Auto) 0.4 H (0.0-0.0) % Neut % (Auto) 73.3 H (50.0-70.0) % Lymph % (Auto) 16.3 L (18.0-42.0) % [place] % (Auto) 9.2 (2.0-11.0) % Eos % (Auto) 0.4 L (1.0-6.0) % Baso % (Auto) 0.4 (0.0-1.0) % Lymph # (Auto) 1.31 (1.10-4.50) K/mm3 [place] # (Auto) 0.74 (0.10-0.90) K/mm3 Eos # (Auto) 0.03 (0.02-0.50) K/mm3 Baso # (Auto) 0.03 (0.00-0.10) K/mm3 Abs Immat Gran (auto) 0.03 H (0.00-0.00) K/mm3 Absolute Neuts (auto) 5.89 (1.70-7.20) K/mm3 Absolute Nucleated RBC 0.00 (0.00-0.00) K/mm3 Nucleated RBC % 0.0 (0-0.0) % Sodium 135 L (137-145) mmol/L Potassium 3.8 (3.4-5.0) mmol/L Chloride 103 (98-107) mmol/L Carbon Dioxide 29 (22-30) mmol/L Anion Gap 3 L (4-12) mmol/L BUN 21 H (9-20) mg/dL Creatinine 0.83 (0.7-1.3) mg/dL Estim Creat Clear Calc 89 ml/min Estimated GFR > 60 (59 - ) Glucose 144 H (65-110) mg/dL Calculated Osmolality 286 (285-295) mOsm/kg Lactic Acid 1.3 (0.4-2.0) mmol/L Calcium 8.5 (8.4-10.2) mg/dL Total Bilirubin 0.8 (0.2-1.3) mg/dL AST 35 (17-59) U/L ALT 40 (6-50) U/L Alkaline Phosphatase 53 (38-126) U/L Total Protein 6.5 (6.3-8.2) g/dL Albumin 3.9 (3.5-5.1) g/dL Lipase 79 (23-300) U/L Urine Color Light yellow (Yellow) Urine Appearance Clear (Clear) Urine pH 6.0 (5.0-8.0) Ur Specific [place] <= 1.005 L (1.010-1.020) Urine Protein Negative (Negative) Urine Glucose (UA) Negative (Negative) Urine Ketones Negative (Negative) Ur Blood (Man) Trace-intact H (Negative) Urine Nitrate Negative (Negative) Urine Bilirubin Negative (Negative) Urine Urobilinogen 0.2 (0.2-1.0) mg/dL Leukocyte Esterase Rfl Negative (Negative) RYAN/UL Influenza A (RT-PCR) Negative (Negative) Influenza B (RT-PCR) Negative (Negative) RSV (RT-PCR) Negative (Negative) SARS-CoV-2 RNA (RT-PCR) Negative (Negative) ABG Data Attestation: I personally reviewed and interpreted this ABG as follows: Imaging Data Attestation: I personally reviewed and interpreted this imaging study as follows: Radiologist's impression: ITS Impressions Abdomen/Pelvis CT 03/23/25 16:10 IMPRESSION: Mild esophagitis/gastritis. Otherwise, no acute abdominopelvic process detected. Discharge Plan Discharge Clinical Impression: Gastroenteritis, Abdominal pain Patient Disposition: Home Condition: Stable Instructions: Antibiotic Form, Abdominal Pain (ED) Patient Language: Samoan Prescriptions: New metronidazole 500 mg tablet 500 mg PO Q8H 7 Days Qty: 21 0RF ciprofloxacin HCl 500 mg tablet 500 mg PO Q12H Qty: 14 0RF No Action montelukast 10 mg Tablet 10 mg PO DAILY amlodipine 10 mg tablet 10 mg PO DAILY atorvastatin 80 mg tablet 40 mg PO DAILY fexofenadine [Allergy Relief (fexofenadine)] 180 mg tablet 180 mg PO DAILY fluticasone furoate 50 mcg/actuation blister with device 2 inh inhalation DAILY lisinopril-hydrochlorothiazide 20-12.5 mg tablet See Rx Instructions .ROUTE .COMPLEX Qty: 90 3RF Dose Instruction: TAKE 1 TABLET BY MOUTH EVERY DAY Rx Instructions: TAKE 1 TABLET BY MOUTH EVERY DAY cyclobenzaprine 10 mg tablet See Rx Instructions .ROUTE .COMPLEX Qty: 14 2RF Dose Instruction: 10 MG ORALLY BEDTIME FOR ABDOMINAL MUSCLE PAIN NIGHTLY FOR ABDOMINAL MUSCLE PAIN Rx Instructions: 10 MG ORALLY BEDTIME FOR ABDOMINAL MUSCLE PAIN NIGHTLY FOR ABDOMINAL MUSCLE PAIN Follow-up/Referrals: Sheldon Trevizo DO [Primary Care Provider] - Time of Disposition: 16:46
[2025-03-23] MEDS: metroNIDAZOLE 250 MG TABLET 500 MG PO (16:41)
[2025-03-23] MEDS: CIPROFLOXACIN 500 MG TAB PO (16:41)
[2025-03-23 16:55] VITALS: BP 131/74; PULSE 69; RESP 16; TEMP 37; O2SAT 99
== END 2025-03-23 16:55 | disposition home or self-care (01) ==
PROVIDERS: Emergency Provider Family Medicine; PCP Family Medicine
DX: K52.9 Noninfective gastroenteritis and colitis, unspecified (principal); I10 Essential (primary) hypertension; E78.5 Hyperlipidemia, unspecified; Z96.651 Presence of right artificial knee joint; Z11.59 Encounter for screening for other viral diseases
CPT/HCPCS: 36415; 74177; 80053; 81003; 83605; 83690; 85025; 87637; 96361; 96374; 96375; 99284; A9270; J1885; J2405; J2470; J7030; Q9967

== ENCOUNTER 2025-05-19 12:47 | Outpatient (CLI) | payer MEDICARE, SELFPAY ==
--- OUTSIDE RECORDS SUMMARY | 2025-05-19 12:51 | XMS_ITS | Continuity of Care Document ---
Author Name [facility] Organization [facility] Care Team Providers Care Home Stager Name Role Phone [facility] Unavailable Unavailable Problems Combined list of problems from Department of Defense and Veterans Affairs facilities. It does not include entries that were removed or entered in error. Problem Status Onset Date Problem Type Date of Resolution Comments Source Allergic Rhinitis (SCT [id number]) Active Condition [place] [facility] AR - Allergic rhinitis Active Condition [facility] Benign prostatic hyperplasia Active Condition [facility] CLBP - Chronic low back pain Active Condition [facility] Eczema Active Condition [place] [facility] Hearing loss Active Condition [facility] Hearing Loss (SCT [id number]) Active Condition [place] [facility] HLD - Hyperlipidemia Active Condition [facility] S HTN - Hypertension Active Condition [facility] HTN - Hypertension (SCT 70161026) [place] [facility] Hyperlipidemia (SCT 69102645) [place] [facility] Impaired glucose tolerance Active Condition [facility] Low Back Pain (SCT 541032135) Active Condition Feb 11, 2019 Entered By: FLORI WHITE Comment: L5-S1 [place] [facility] OA - Osteoarthritis Active Condition [facility] S OA - Osteoarthritis (SCT 503310038) Active Condition [place] [facility] Obesity Active [place] [facility] Prediabetes Active [place] [facility] Diagnosis: ICD-10-CM Z71.9 Counseling, unspecified Active Diagnosis [facility] Diagnosis: ICD-10-CM Z23 Encounter for immunization Active Diagnosis [facility] Diagnosis: ICD-10-CM Z00.01 Encounter for general adult medical exam w abnormal findings Active Diagnosis [facility] Medications Combined list of [...] DAY FOR BLOOD PRESSURE ORAL ACTIVE 05/27/2025 [id number] SATHISH,CRYST AL L 2023 45 [facility] AMLODIPINE BESYLATE 10MG TAB TAKE ONE-HALF TABLET BY MOUTH EVERY DAY FOR BLOOD PRESSURE ORAL DISCONT INUED 05/14/2024 [id number] 4 FABIOLA GUIDO 2022 45 [facility] AMLODIPINE BESYLATE 10MG TAB TAKE ONE-HALF TABLET BY MOUTH EVERY DAY ORAL ACTIVE SHANK,GLE NACE B 2018 [facility] [place] [facility] ASPIRIN 81MG TAB,EC TAKE ONE TABLET BY MOUTH EVERY DAY ORAL ACTIVE SHANK,GLE NACE B 2018 [facility] [place] [facility] ATORVASTATI N CA 40MG TAB TAKE ONE TABLET BY MOUTH EVERY DAY ORAL ACTIVE SHANK,[place] NACE B 2018 [facility] [place] [facility] ATORVASTATI N CA 80MG TAB TAKE ONE-HALF TABLET BY MOUTH AT BEDTIME FOR CHOLESTE ROL CALL YOUR PROVIDER IF YOU HAVE MUSCLE PAIN, TENDERNE SS OR WEAKNESS ORAL ACTIVE 05/27/2025 [id number] 5 SATHISH,CRYST AL L 2023 45 [facility] ATORVASTATI N CA 80MG TAB TAKE ONE-HALF TABLET BY MOUTH AT BEDTIME FOR CHOLESTE ROL CALL YOUR PROVIDER IF YOU HAVE MUSCLE PAIN, TENDERNE SS OR WEAKNESS ORAL DISCONT INUED 05/14/2024 [id number] FABIOLA GUIDO 2022 45 [facility] FEXOFENADIN E HCL 180MG TAB TAKE ONE TABLET BY MOUTH DAILY ORAL ACTIVE 05/27/2025 [id number] 5 SATHISH,CRYST AL L 2023 90 [facility] FEXOFENADIN E HCL 180MG TAB TAKE ONE TABLET BY MOUTH DAILY ORAL DISCONT INUED 05/14/2024 [id number] FABIOLA GUIDO 2022 90 [facility] FEXOFENADIN E HCL 180MG TAB TAKE ONE TABLET BY MOUTH EVERY DAY ORAL ACTIVE DIRK WHITE GREG B 2018 [facility] [place] FLUTICASONE PROPIONATE 50MCG/SPRAY SOLN,NASAL, 16GM 2 SPRAYS EACH NOSTRIL DAILY NASAL ACTIVE 05/27/2025 [id number] 5 SATHISH,CRYST AL L 2023 3 [facility] FLUTICASONE PROPIONATE 50MCG/SPRAY SOLN,NASAL, 16GM 2 SPRAYS EACH NOSTRIL DAILY NASAL DISCONT INUED 05/14/2024 [id number] 4 FABIOLA GUIDO 2022 3 [facility] FLUTICASONE PROPIONATE 50MCG/SPRAY SOLN,NASAL, 16GM SQUIRT 2 SPRAYS IN EACH NOSTRIL EVERY DAY NASAL ACTIVE DIRK WHITE JUNIORE B 2018 [facility] [place] HYDROCHLORO THIAZIDE 12.5MG/ILIANA NOPRIL 20MG TAB TAKE 1 TABLET BY MOUTH DAILY FOR BLOOD PRESSURE ORAL ACTIVE 05/27/2025 [id number] SATHISH,CRYST AL L 2023 90 [facility] HYDROCHLORO THIAZIDE 12.5MG/ILIANA NOPRIL 20MG TAB TAKE 1 TABLET BY MOUTH DAILY FOR BLOOD PRESSURE ORAL DISCONT INUED 05/14/2024 [id number] FABIOLA GUIDO 2022 90 [facility] HYDROCHLORO THIAZIDE 12.5MG/ILIANA NOPRIL 20MG TAB TAKE ONE TABLET BY MOUTH EVERY DAY ORAL ACTIVE DIRK WHITE GREG B 2018 [facility] [place] [facility] MONTELUKAST NA 10MG TAB TAKE ONE TABLET BY MOUTH EVERY DAY ORAL ACTIVE 05/27/2025 [id number] 5 SATHISH,CRYST AL L 2023 90 [facility] MONTELUKAST NA 10MG TAB TAKE ONE TABLET BY MOUTH EVERY DAY ORAL DISCONT INUED 05/14/2024 [id number] FABIOLA GUIDO 2022 90 [facility] TAMSULOSIN HCL 0.4MG CAP TAKE ONE CAPSULE BY MOUTH EVERY EVENING TAKE 30 MINUTES AFTER A MEAL ORAL ACTIVE 04/25/2026 [id number] ROBYN BASHIR 2024 90 [facility] TAMSULOSIN HCL 0.4MG CAP TAKE ONE CAPSULE BY MOUTH EVERY EVENING TAKE 30 MINUTES AFTER A MEAL ORAL DISCONT INUED 05/27/2025 [id number] SATHISH,CRYST AL L 2023 90 [facility] TRIAMCINOLO NE ACETONIDE 0.1% CREAM,TOP APPLY THIN FILM TOPICALL Y TWO TIMES A DAY NEEDED TOPICA L ACTIVE 05/27/2025 [id number] SATHISH,CRYST AL L 2023 80 [facility] TRIAMCINOLO NE ACETONIDE 0.1% CREAM,TOP APPLY THIN FILM TOPICALL Y TWICE A DAY TOPICA L ACTIVE DIRK WHITE B 2018 [facility] [place] DIV[facility] N Immunizations Combined list of available immunizations from the Department of Defense and [facility] Affairs facilities. Immunization Series Date Given Administered By Site Reaction Lot Number CVX Code Drug Group Practice Pediatrician Status Comments Source INFLUENZA, HIGH-DOSE, TRIVALENT, PF 2023 MARGY JOSHUA ROBINSON LEFT DELTO ID [id number] A 135 complet ed Completed Series, [facility] ZOSTER RECOMBINANT 2 2023 MARGY JOSHUA ROBINSON RIGHT DELTO ID [id number] 187 complet ed [facility] COVID-19 (MODERNA), MRNA, LNP-S, PF, 50 MCG/0.5 ML (AGES 12+ YEARS) 2023 MARGY JOSHUA ROBINSON RIGHT DELTO ID [id number] 312 complet ed Completed Series, [facility] ZOSTER RECOMBINANT 1 2023 MARGY JOSHUA ROBINSON LEFT DELTO ID [id number] 187 complet ed [facility] PNEUMOCOCCAL CONJUGATE PCV20, POLYSACCHARID E CAS659 CONJUGATE, ADJUVANT, PF 1 2022 216 complet ed HISTORICA L INFORMATI ON - FROM OTHER [facility], [facility] COVID-19 (PFIZER), MRNA, LNP-S, PF, MAJO-SUCROSE, 30 MCG/0.3 ML (AGES 12+ YEARS) 6 2022 309 complet ed HISTORICA L INFORMATI ON - FROM OTHER REGISTRY, [facility] INFLUENZA, ADJUVANTED, QUADRIVALENT, PF 1 2022 205 complet ed HISTORICA L INFORMATI ON - FROM OTHER REGISTRY, [facility] COVID-19 (MODERNA), MRNA, LNP-S, BIVALENT, PF, 50 MCG/0.5 ML OR 25MCG/0.25 ML DOSE 5 2021 229 complet ed HISTORICA L INFORMATI ON - FROM OTHER REGISTRY, [facility] INFLUENZA, HIGH-DOSE, QUADRIVALENT, PF 1 2021 197 complet ed HISTORICA L INFORMATI ON - FROM OTHER REGISTRY, [facility] INFLUENZA, UNSPECIFIED FORMULATION 2021 88 complet ed HISTORICA L INFORMATI ON - FROM PATIENT'S RECALL, [facility] COVID-19 (MODERNA), MRNA, LNP-S, PF, 100 MCG/0.5ML DOSE OR 50 MCG/0.25ML DOSE 4 2021 207 complet ed HISTORICA L INFORMATI ON - FROM OTHER REGISTRY, [facility] COVID-19 (MODERNA), MRNA, LNP-S, PF, 100 MCG/0.5ML DOSE OR 50 MCG/0.25ML DOSE 3 2020 207 complet ed HISTORICA L INFORMATI ON - FROM OTHER REGISTRY, [facility] INFLUENZA, HIGH-DOSE, QUADRIVALENT, PF 1 2020 197 complet ed HISTORICA L INFORMATI ON - FROM OTHER REGISTRY, [facility] TDAP 1 2020 115 complet ed HISTORICA L INFORMATI ON - FROM OTHER REGISTRY, [facility] COVID-19 (MODERNA), MRNA, LNP-S, PF, 100 MCG/0.5ML DOSE OR 50 MCG/0.25ML DOSE 2 2020 207 complet ed [facility] COVID-19 (MODERNA), MRNA, LNP-S, PF, 100 MCG/0.5ML DOSE OR 50 MCG/0.25ML DOSE 1 2020 207 complet ed [facility] TDAP 2018 115 complet ed adacel; [id number] exp: 021 [place] [facility] INFLUENZA, SEASONAL, INJECTABLE 2017 141 complet ed workplace [place] [facility] RojasJOHN N Results Combined list of recent chemistry, [...] May 26, 2024 11:09 AM Reporting Lab: [address] [phone] Performing Lab: [address] [address] [facility] CBC W/DIFF LEUKOCYTES [#/VOLUME] IN BLOOD BY AUTOMATED COUNT 5.4 10*3/uL 4.0 - 11.0 05/05 Specimen Type: BLOOD No comment entered. Ordering Provider: YANIQUE GUIDO Report Released Date/Time: May 10, 2023 10:08 AM Reporting Lab: [address] [address] Performing Lab: [address] [address] [facility] CBC W/DIFF ERYTHROCYT ES [#/VOLUME] IN BLOOD BY AUTOMATED COUNT 4.53 10*6/uL 4.20 - 5.70 05/05 Specimen Type: BLOOD No comment entered. Ordering Provider: YANIQUE GUIDO Report Released Date/Time: May 10, 2023 10:08 AM Reporting Lab: [address] [address] Performing Lab: [address] [address] [facility] CBC W/DIFF HEMOGLOBIN [MASS/VOLU ME] IN BLOOD 14.9 g/dL 13.0 - 17.0 05/05 Specimen Type: BLOOD No comment entered. Ordering Provider: YANIQUE GUIDO Report Released Date/Time: May 10, 2023 10:08 AM Reporting Lab: [facility] [address] [place] [phone] Performing Lab: [facility] [address] [place] [phone] [facility] CBC W/DIFF HEMATOCRIT [VOLUME FRACTION] OF BLOOD BY AUTOMATED COUNT 43.1 40.0 - 51.0 05/05 Specimen Type: BLOOD No comment entered. Ordering Provider: YANIQUE GUIDO Report Released Date/Time: May 10, 2023 10:08 AM Reporting Lab: [facility] [address] [place] [phone] Performing Lab: [facility] [address] [place] [phone] [facility] CBC W/DIFF MCV [ENTITIC VOLUME] BY AUTOMATED COUNT 95.1 fL 82 - 99 05/05 Specimen Type: BLOOD No comment entered. Ordering Provider: YANIQUE GUIDO Report Released Date/Time: May 10, 2023 10:08 AM Reporting Lab: [address] [phone] Performing Lab: [address] [address] [facility] CBC W/DIFF MCHC [MASS/VOLU ME] BY AUTOMATED COUNT 32.9 pg 27 - 34 05/05 Specimen Type: BLOOD No comment entered. Ordering Provider: YANIQUE GUIDO Report Released Date/Time: May 10, 2023 10:08 AM Reporting Lab: [address] [address] Performing Lab: [facility] [address] [place] [phone] [facility] CBC W/DIFF MCHC [MASS/VOLU ME] BY AUTOMATED COUNT 34.6 g/dL 31 - 37 05/05 Specimen Type: BLOOD No comment entered. Ordering Provider: YANIQUE GUIDO Report Released Date/Time: May 10, 2023 10:08 AM Reporting Lab: [address] [address] Performing Lab: [address] [phone] [facility] CBC W/DIFF PLATELET MEAN VOLUME [ENTITIC VOLUME] IN BLOOD BY AUTOMATED COUNT 10.4 fL 8 - 12 05/05 Specimen Type: BLOOD No comment entered. Ordering Provider: YANIQUE GUIDO Report Released Date/Time: May 10, 2023 10:08 AM Reporting Lab: [facility] [address] [facility] [address] Performing Lab: [facility] [address] [place] [phone] [facility] CBC W/DIFF PLATELETS [#/VOLUME] IN BLOOD BY AUTOMATED COUNT 232 10*3/uL 130 - 400 05/05 Specimen Type: BLOOD No comment entered. Ordering Provider: YANIQUE GUDIO Report Released Date/Time: May 10, 2023 10:08 AM Reporting Lab: [address] [address] Performing Lab: [address] [phone] [facility] CBC W/DIFF ERYTHROCYT E DISTRIBUTI ON WIDTH [RATIO] BY AUTOMATED COUNT 12.5 < 15.0 - 15.0 05/05 Specimen Type: BLOOD No comment entered. Ordering Provider: YANIQUE GUIDO Report Released Date/Time: May 10, 2023 10:08 AM Reporting Lab: [facility] [address] [place] [phone] Performing Lab: [facility] [address] [place] [phone] [facility] CBC W/DIFF NEUTROPHIL S/100 LEUKOCYTES IN BLOOD BY AUTOMATED COUNT 61.2 05/05 Specimen Type: BLOOD No comment entered. Ordering Provider: YANIQUE GUIDO Report Released Date/Time: May 10, 2023 10:08 AM Reporting Lab: [facility] [address] [place] [phone] Performing Lab: [facility] [address] [place] [phone] [facility] CBC W/DIFF LYMPHOCYTE S/100 LEUKOCYTES IN BLOOD BY AUTOMATED COUNT 23.0 05/05 Specimen Type: BLOOD No comment entered. Ordering Provider: YANIQUE GUIDO Report Released Date/Time: May 10, 2023 10:08 AM Reporting Lab: [address] [address] Performing Lab: [facility] [address] [place] [phone] [facility] CBC W/DIFF MONOCYTES/ 100 LEUKOCYTES IN BLOOD BY AUTOMATED COUNT 12.3 05/05 Specimen Type: BLOOD No comment entered. Ordering Provider: YANIQUE GUIDO Report Released Date/Time: May 10, 2023 10:08 AM Reporting Lab: [facility] [address] [facility] [address] Performing Lab: [facility] [address] [place] [phone] [facility] CBC W/DIFF EOSINOPHIL S/100 LEUKOCYTES IN BLOOD BY AUTOMATED COUNT 2.2 05/05 Specimen Type: BLOOD No comment entered. Ordering Provider: YANIQUE GUIDO Report Released Date/Time: May 10, 2023 10:08 AM Reporting Lab: [facility] [address] [place] [phone] Performing Lab: [facility] [address] [place] [phone] [facility] CBC W/DIFF BASOPHILS/ 100 LEUKOCYTES IN BLOOD BY AUTOMATED COUNT 0.9 05/05 Specimen Type: BLOOD No comment entered. Ordering Provider: YANIQUE GUIDO Report Released Date/Time: May 10, 2023 10:08 AM Reporting Lab: [facility] [address] [facility] [address] Performing Lab: [facility] [address] [place] [phone] [facility] CBC W/DIFF IMMATURE GRANULOCYT ES/100 LEUKOCYTES IN BLOOD 0.4 05/05 Specimen Type: BLOOD No comment entered. Ordering Provider: YANIQUE GUIDO Report Released Date/Time: May 10, 2023 10:08 AM Reporting Lab: [facility] [address] [facility] [address] Performing Lab: [facility] [address] [facility] [address] [facility] CBC W/DIFF NEUTROPHIL S [#/VOLUME] IN BLOOD BY AUTOMATED COUNT 3.3 10*3/uL 1.5 - 8.0 05/05 Specimen Type: BLOOD No comment entered. Ordering Provider: YANIQUE GUIDO Report Released Date/Time: May 10, 2023 10:08 AM Reporting Lab: [facility] [address] [place] [phone] Performing Lab: [facility] [address] [place] [phone] [facility] CBC W/DIFF LYMPHOCYTE S [#/VOLUME] IN BLOOD BY AUTOMATED COUNT 1.2 10*3/uL 1.0 - 4.0 05/05 Specimen Type: BLOOD No comment entered. Ordering Provider: YANIQUE GUIDO Report Released Date/Time: May 10, 2023 10:08 AM Reporting Lab: [address] [address] Performing Lab: [address] [phone] [facility] CBC W/DIFF MONOCYTES [#/VOLUME] IN BLOOD BY AUTOMATED COUNT 0.7 10*3/uL 0.2 - 1.0 05/05 Specimen Type: BLOOD No comment entered. Ordering Provider: YANIQUE GUIDO Report Released Date/Time: May 10, 2023 10:08 AM Reporting Lab: [address] [address] Performing Lab: [address] [address] [facility] CBC W/DIFF EOSINOPHIL S [#/VOLUME] IN BLOOD BY AUTOMATED COUNT 0.1 10*3/uL 0 - 0.4 05/05 Specimen Type: BLOOD No comment entered. Ordering Provider: YANIQUE GUIDO Report Released Date/Time: May 10, 2023 10:08 AM Reporting Lab: [address] [address] Performing Lab: [address] [address] [facility] CBC W/DIFF BASOPHILS [#/VOLUME] IN BLOOD BY AUTOMATED COUNT 0.1 10*3/uL 0 - 0.2 05/05 Specimen Type: BLOOD No comment entered. Ordering Provider: YANIQUE GUIDO Report Released Date/Time: May 10, 2023 10:08 AM Reporting Lab: [address] [address] Performing Lab: [address] [address] [facility] CBC W/DIFF IMMATURE GRANULOCYT ES/100 LEUKOCYTES IN BLOOD <0.110*3 /uL 0 - 0.5 05/05 Specimen Type: BLOOD No comment entered. Ordering Provider: YANIQUE GUIDO Report Released Date/Time: May 10, 2023 10:08 AM Reporting Lab: [address] [address] Performing Lab: [address] [phone] [facility] CBC W/DIFF NUCLEATED ERYTHROCYT ES/100 ERYTHROCYT ES IN BLOOD 0.0 /100{WBC s} 0 - 0.2 05/05 Specimen Type: BLOOD No comment entered. Ordering Provider: YANIQUE GUIDO Report Released Date/Time: May 10, 2023 10:08 AM Reporting Lab: [address] [address] Performing Lab: [place] [phone] [facility] CBC W/DIFF NUCLEATED ERYTHROCYT ES [#/VOLUME] IN BLOOD <0.0110* 3/uL 0 - 0.012 05/05 Specimen Type: BLOOD No comment entered. Ordering Provider: YANIQUE GUIDO Report Released Date/Time: May 10, 2023 10:08 AM Reporting Lab: [address] [address] Performing Lab: [address] [phone] [facility] A1C % HEMOGLOBIN A1C/HEMOGL OBIN.TOTAL IN [...] May 10, 2023 10:08 AM Reporting Lab: [address] [address] Performing Lab: [address] [phone] [facility] COMPREHE NSIVE PNL ANION GAP IN [...] May 10, 2023 10:08 AM Reporting Lab: [address] [address] Performing Lab: [address] [address] [facility] COMPREHE NSIVE PNL GLOMERULAR FILTRATION RATE/1.73 [...] May 10, 2023 10:08 AM Reporting Lab: [address] [address] Performing Lab: [address] [phone] [facility] COMPREHE NSIVE PNL GLUCOSE [MASS/VOLU ME] [...] May 10, 2023 10:08 AM Reporting Lab: [address] [address] Performing Lab: [address] [address] [facility] COMPREHE NSIVE PNL POTASSIUM [MOLES/VOL UME] [...] May 10, 2023 10:08 AM Reporting Lab: [address] [address] Performing Lab: [address] [address] [facility] COMPREHE NSIVE PNL SODIUM [MOLES/VOL UME] [...] May 10, 2023 10:08 AM Reporting Lab: [address] [phone] Performing Lab: [place] [phone] [facility] COMPREHE NSIVE PNL BILIRUBIN. TOTAL [MASS/VOLU [...] May 10, 2023 10:08 AM Reporting Lab: [address] [address] Performing Lab: [address] [address] [facility] COMPREHE NSIVE PNL PROTEIN [MASS/VOLU ME] [...] May 10, 2023 10:08 AM Reporting Lab: [place] [phone] Performing Lab: [place] [phone] [facility] COMPREHE NSIVE PNL ALBUMIN [MASS/VOLU ME] [...] mg/dL -Very High: >=190 mg/dL Ordering Provider: AYNIQUE GUIDO Report Released Date/Time: May 10, 2023 10:08 AM Reporting Lab: [address] [address] Performing Lab: [address] [address] [facility] COMPREHE NSIVE PNL ALKALINE PHOSPHATAS E [...] May 10, 2023 10:08 AM Reporting Lab: [place] [phone] Performing Lab: [place] [phone] [facility] COMPREH NSIVE PNL ALANINE AMINOTRANS FERASE [ENZYMATIC ACTIVITY/V OLUME] IN SERUM OR PLASMA 36 U/L 10 - 65 05/05 Specimen Type: PLASMA Comment: Low-risk levels [...] May 10, 2023 10:08 AM Reporting Lab: [address] [address] Performing Lab: [place] [phone] [facility] COMPREHE NSIVE PNL ASPARTATE AMINOTRANS FERASE [ENZYMATIC ACTIVITY/V OLUME] IN SERUM OR PLASMA 25 U/L 10 - 05/05 Specimen Type: PLASMA Comment: Low-risk [...] May 10, 2023 10:08 AM Reporting Lab: [place] [phone] Performing Lab: [place] [phone] [facility] COMPREHE NSIVE PNL UREA NITROGEN [MASS/VOLU [...] May 10, 2023 10:08 AM Reporting Lab: [address] [address] Performing Lab: [address] [phone] [facility] COMPREHE NSIVE PNL CALCIUM, TOTAL 9.1 [...] May 10, 2023 10:08 AM Reporting Lab: [address] [address] Performing Lab: [place] [phone] [facility] COMPREHE NSIVE PNL CARBON DIOXIDE, TOTAL [...] May 10, 2023 10:08 AM Reporting Lab: [address] [phone] Performing Lab: [address] [address] [facility] COMPREHE NSIVE PNL CHLORIDE [MOLES/VOL UME] [...] May 10, 2023 10:08 AM Reporting Lab: [address] [address] Performing Lab: [address] [phone] [facility] COMPREHE NSIVE PNL CREATININE [MASS/VOLU ME] IN URINE 0.81 mg/dL 0.67 - 1.17 05/05 Specimen Type: PLASMA Comment: Low-risk levels [...] May 10, 2023 10:08 AM Reporting Lab: [address] [phone] Performing Lab: [address] [address] [facility] LIPID PNL CHOLESTERO L IN HDL [MASS/VOLU ME] IN SERUM OR PLASMA 44.1 mg/dL 60 05/05 L Specimen Type: PLASMA Comment: Low-risk levels (desirable) [...] May 10, 2023 10:08 AM Reporting Lab: [address] [phone] Performing Lab: [place] [id number] [facility] LIPID PNL TRIGLYCERI DE [MASS/VOLU ME] IN SERUM OR PLASMA 105 mg/dL 05/05 Specimen Type: PLASMA Comment: Low-risk levels [...] May 10, 2023 10:08 AM Reporting Lab: [address] [phone] Performing Lab: [address] [address] [facility] LIPID PNL CHOLESTERO L IN LDL [MASS/VOLU ME] IN SERUM OR PLASMA BY DIRECT ASSAY [facility] 05/05 Specimen Type: PLASMA Comment: Low-risk levels [...] May 10, 2023 10:08 AM Reporting Lab: [address] [phone] Performing Lab: [address] [address] [facility] LIPID PNL CHOLESTERO L [MASS/VOLU ME] IN SERUM OR PLASMA 133 mg/dL 05/05 Specimen Type: PLASMA Comment: Low-risk levels [...] May 10, 2023 10:08 AM Reporting Lab: [address] [address] Performing Lab: [address] [phone] [facility] LIPID PNL CHOLESTERO L IN LDL [MASS/VOLU ME] IN SERUM OR PLASMA BY CALCGURU Miranda 68 mg/dL 05/05 Specimen Type: PLASMA Comment: Low-risk levels [...] May 10, 2023 10:08 AM Reporting Lab: [address] [address] Performing Lab: [address] [address] [facility] THYROID CASCADE PANEL THYROTROPI N [UNITS/VOL UME] IN SERUM OR PLASMA 1.734 u[IU]/mL 0.550 - 4.780 05/05 Specimen Type: SERUM Comment: PSA was performed on the Siemens [employer] Immunoassay Analyzer. Deficiency <20, Insufficien cy 20-30, Sufficiency 30-100, Toxicity >100 ng/mL Ordering Provider: YANIQUE GUIDO Report Released Date/Time: May 10, 2023 10:08 AM Reporting Lab: [address] [address] Performing Lab: [address] [address] [facility] VITAMIN D 25-HYDRO XY 25-HYDROXY VITAMIN D3 [MASS/VOLU ME] IN SERUM OR PLASMA 32.40 ng/mL 30 - 100 05/05 Specimen Type: SERUM Comment: PSA was performed on the [employer] Immunoassay Analyzer. Deficiency <20, Insufficien cy 20-30, Sufficiency 30-100, Toxicity >100 ng/mL Ordering Provider: YANIQUE GUIDO Report Released Date/Time: May 10, 2023 10:08 AM Reporting Lab: [address] [address] Performing Lab: [address] [address] [facility] PSA TOTAL EIA PROSTATE SPECIFIC AG [MASS/VOLU ME] IN SERUM OR PLASMA 1.83 ng/mL 0.00 - 4.00 05/05 Specimen Type: SERUM Comment: PSA was performed on the [employer] Immunoassay Analyzer. Deficiency <20, Insufficien cy 20-30, Sufficiency 30-100, Toxicity >100 ng/mL Ordering Provider: YANIQUE GUIDO Report Released Date/Time: Apr 30, 2024 10:07 AM Reporting Lab: [facility] [address] [id number] Performing Lab: [facility] [address] [id number] [facility] Vital Signs Combined list of inpatient and outpatient Vital Signs from Department of [facility] and [facility], ranging from 12 months to all on record, depending upon the facility. Vital Sign Value Date Comments Source SYSTOLIC BLOOD PRESSURE 149 05/26/2024 10:36:53 [facility] DIASTOLIC BLOOD PRESSURE 73 05/26/2024 10:36:53 [facility] PULSE OXIMETRY 98 05/26/2024 10:36:53 [facility] WEIGHT 224.8 05/26/2024 10:36:53 [facility] PAIN 0 05/26/2024 10:36:53 [facility] TEMPERATURE 97.7 05/26/2024 10:36:53 [facility] PULSE 60 05/26/2024 10:36:53 [facility] RESPIRATION 20 05/26/2024 10:36:53 [facility] Encounters Combined list of: 1) Encounters from Department of Veterans Affairs facilities going backup to the last 18 months, not all [place] inpatient encounters are included; 2) Encounters from the Department of [facility] facilities going backup to 280 months. Location Location Details Encounter Type Encounter Number Reason For Visit Attending Provider ADM Date DC Date Status Disposition Source [facility] Outpatient Encounter [id number] 03/04 [facility] Outpatient Encounter [id number] 05/20 [facility] Outpatient Encounter [id number] 05/26 [facility] ADMN SARSCOV2 VACC 1 DOSE [id number] Diagnos is: ICD-10- CM Z00.01 Encount er for general adult medical exam w abnorma l finding s SATHISH,KENRICK L L 05/26 [facility] Outpatient Encounter [id number] 05/26 [facility] Outpatient Encounter [id number] 05/28 [facility] Outpatient Encounter [id number] 06/02 [facility] Outpatient Encounter [id number] 06/12 [facility] Outpatient Encounter [id number] 07/09 [facility] Outpatient Encounter [id number] GERALD FOSTER 07/25 [facility] OFF/OP EST MARCH X REQ PHY/QHP [id number] Diagnos is: ICD-10- CM Z23 Encount er for immuniz JEREMY Tadeo 08/26 [facility] Outpatient Encounter [id number] 09/15 [facility] Outpatient Encounter [id number] 09/16 [facility] Outpatient Encounter [id number] 09/25 [facility] OFF/OP EST MARCH X REQ PHY/QHP [id number] Diagnos is: ICD-10- CM Z71.9 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 Social History Type Response Date Comment Sourc e Tobacco smoking status NHIS VA-TOBACCO FORMER USER 05/26/2024 [facility] History of tobacco use VA-TOBACCO QUIT 15 YRS OR MORE 05/26/2024 [facility] History of tobacco use VA-TOBACCO FORMER USER 05/10/2023 [facility] History of tobacco use VA-TOBACCO NEVER USED 05/10/2022 [facility] [place] [facility] History of tobacco use VA-TOBACCO QUIT 15 YRS OR MORE 01/15/2019 [facility] Plan of Care List of future care activities from Department of Veterans Affairs facilities. Additional future care activities may be listed in the Assessment and Plan section. Date/Time Care Activity Care Activity Detail Netitei kristine 05/27/2025 AMBULATORY - NONE AMBULATORY - NONE [facility]
--- OUTSIDE RECORDS SUMMARY | 2025-05-19 12:51 | XMS_ITS | Clinical Summary ---
Author Organization [facility] Address [address] [place] [address] Care Team Providers Care New Car Make Ready Worker Name Role Phone Sheldon Trevizo DO Primary Care Provider [phone] Allergies No known active allergies Medications amLODIPine 5 MG tablet Take 5 mg by mouth daily. Active atorvastatin 40 MG tablet Take 40 mg by mouth nightly at bedtime. Active lisinopril-hydr oCHLOROthiazide 20-12.5 MG tablet Take 1 tablet by mouth daily. Active fexofenadine 180 MG tablet Take 180 mg by mouth daily. Active triamcinolone 0.1 % cream Apply topically 2 (two) times daily. Active bacitracin 500 UNIT/GM ointment Apply topically 2 (two) times daily. 14 g 1 2 Active lidocaine 4 % patch Place 2 patches onto the skin daily. Remove & Discard patch within 12 hours or as directed by MD 30 patch 2 Active Active Problems Problem Noted Date Diagnosed Date Pneumothorax 02/20/2022 Multiple rib fractures 02/20/2022 Immunizations Immunization Administration Dates Next Due Tdap (Boostrix) 05/31/2021 Social History Tobacco Use Types Packs/Day Years Used Date Smoking Tobacco: Former Smokeless Tobacco: Never Alcohol Use Standard Drinks/Week Comments Yes 0 (1 standard drink = 0.6 oz pur e alcohol) Sex and Gender Information Value Date Recorded Sex Assigned at Not on file Legal Sex Male 6:36 PM CDT Gender Identity Not on file Sexual Orientation Not on file Last Filed Vital Signs Vital Sign Reading Time Taken Comments Blood Pressure 103/55 02/24/2022 8:15 AM CDT Pulse 72 02/24/2022 8:15 AM CDT Temperature 37 C (98.6 F) 02/24/2022 8:15 AM CDT Respiratory Rate 18 02/21/2022 7:40 PM CDT Oxygen Saturation 91% 02/24/2022 8:15 AM CDT Inhaled Oxygen Concentration - - Weight 109.8 kg (242 lb 1 oz) 02/22/2022 7:00 AM CDT Height 180.3 cm (5' 11) 02/21/2022 5:47 AM CDT Body Mass Index 33.76 02/21/2022 5:47 AM CDT Plan of Treatment Health Maintenance Due Date Last Done Comments Colorectal Cancer Screening Colonoscopy (10 Years) 1955 Hepatitis C 1971 Pneumococcal Vaccine: 50+ Years (1 of 1 - PCV) 2003 Zoster Vaccines (1 of 2) 2003 Annual Medicare Wellness Visit 2018 COVID-19 Vaccine (3 - 2023-2 5 season) 2024 02/17/2021, 01/20/2021 RSV Immunization or 60+ Years (1 - 1-dose 75+ series) 2028 DTaP, Tdap and Td Vaccines ( 2 - Td or Tdap) 05/31/2031 05/31/2021 Meningococcal B Vaccine Aged Out No l onger eligible based on patient's age to complete this topic Meningococcal Vaccine Aged Out No inez yohan eligible based on patient's age to complete this topic RSV Immunizations Under 20 Months Aged Out No longer eligible b ased on patient's age to complete this topic Goals Goal Patient Goal Type Associated Problems Recent Progress Patient-Stated? Author Safety Patient/family will have appropriate support at home upon discharge General No Vy Prasad RN Insurance MEDICARE [facility] Advance Directives * Full Code (Latest Code Status on File) Date Activated Date Inactivated Comments 02/20/2022 11:45 PM 02/24/2022 1:13 PM Care Teams New Car Make Ready Worker Relationship Specialty Start Date End Date Sheldon Trevizo DO [address] [place] [address] PCP - General FAMILY PRACTICE 02/20/22
--- NOTE | 2025-05-19 13:01 | ECG_ITS ---
Test Date: 2025-05-19 13:06:26 Measurements Intervals [place] Rate: 58 P: 12 WI: 251 QRS: -28 QRSD: 127 T: -5 QT: 422 QTc: 417 Interpretive Statements SINUS BRADYCARDIA WITH FIRST DEGREE AV BLOCK BORDERLINE LEFT AXIS DEVIATION [QRS AXIS < -20] MODERATE VOLTAGE CRITERIA FOR LVH, CONSIDER NORMAL VARIANT [MEETS CRITERIA IN ONE OF: R(aVL), S(V1), R(V5), R(V5/V6)+S(V1)] No previous ECG available for comparison Electronically Signed On 05-20-2025 14:38:54 CDT by Abdiel Varela M.D.
[2025-05-19 13:38] LABS: Anion Gap 4 mmol/L (4-12); Blood Urea Nitrogen 23 mg/dL (9-20); Calcium 9.4 mg/dL (8.4-10.2); Carbon Dioxide 27 mmol/L (22-30); Chloride 109 mmol/L (98-107); Estimated Glomerular Filt Rate > 60; Glucose 94 mg/dL (65-110); Osmolality Calculated 293 mOsm/kg (285-295); Potassium 4.3 mmol/L (3.4-5.0); Sodium 140 mmol/L (137-145)
== END 2025-05-19 12:48 | disposition home or self-care (01) ==
PROVIDERS: PCP Family Medicine; Visit Provider Anesthesiology
DX: Z01.818 Encounter for other preprocedural examination (principal); I10 Essential (primary) hypertension; R00.1 Bradycardia, unspecified; I44.30 Unspecified atrioventricular block
CPT/HCPCS: 36415; 80048; 93005

== ENCOUNTER 2025-05-24 00:58 | Day surgery (SDC) | payer MEDICARE, SELFPAY ==
--- NOTE | 2025-05-17 09:33 | PC.NURSE ---
Report to the Outpatient Waiting Room, entrance under the green pavilion located off [facility], at time _9:30 am on date __05/24/25 . Planned Procedure Time: _11:30 am .? Time changes happen often and if your time is changed the preop area will call you the afternoon before. - You and your visitor will be asked to self-screen and do not enter if you have any COVID symptoms. Please call surgeon if you need to reschedule. - A mask is optional within the hospital at this time. Patients may have clear liquids (water, carbonated beverages, clear teas, apple juice) until 3 hours prior to surgery ( 8:30 am) with a maximum of 20 ounces. - No food from midnight until time of surgery and no smoking, or chewing tobacco (or any form of nicotine). No chewing gum, candy or mints. Take only the following medications with a SIP of water on the morning of surgery: NONE DO NOT STOP ANY OF YOUR OTHER PRESCRIPTION MEDICATIONS PRIOR TO SURGERY EXCEPT THE FOLLOWING Hold all vitamins and supplements for 3 days per anesthesiologist. Medications to discontinue per physician NONE Please no make-up, nail slovak, hairspray, perfume, deodorant, or body powder the day of surgery.? No jewelry (including any body piercings) or valuables the day of surgery, leave them at home.? Please take a shower or bath the night before, or the morning of, surgery with an antibacterial soap.? Wear comfortable, loose fitting clothing.? Children are encouraged to wear pajamas. - Jewelry must be removed prior to entering the operating room.? Rings and piercings that are not removed may be cut off. - The hospital will not accept responsibility for valuables.? - Please leave all valuables, including medications, at home the day of surgery. If you are going home after surgery, a licensed stock car driver must drive you home.? - NO public transportation without another adult if you receive anesthesia. - We recommend that an adult stay with you for 24 hours following discharge. - We also recommend that you do not drive, make important decision, drink alcoholic beverages, or take any drugs that were not prescribed by your health care provider for at least 24 hours after your discharge time. For Pediatric surgeries, we recommend two adults accompany the child home. Follow any additional instructions given to you from your surgeon. Telephone instructions given to __PATIENT and asked if any additional questions and then verbalized understanding. Patient advised to call surgeon office or pre surgery nurse liaison [phone] if any additional questions.
[2025-05-17 10:48] VITALS: BMI 32.8
[2025-05-24] VITALS (7 sets, daily range): BP systolic 119–178; BP diastolic 65–77; PULSE 50–61; RESP 12–16; TEMP 36–36.6; O2SAT 96–100; BMI 33.1
--- OUTSIDE RECORDS SUMMARY | 2025-05-24 01:00 | XMS_ITS | Clinical Summary ---
Author Organization [facility] Address [address] [place] [address] Care Team Providers Care Layout Man Name Role Phone Sheldon Trevizo DO Primary Care Provider [phone] Allergies No known active allergies Medications amLODIPine [...] General No Vy Prasad RN Insurance MEDICARE [facility] Advance Directives * Full Code (Latest Code Status on File) Date Activated Date Inactivated Comments 02/20/2022 11:45 PM 02/24/2022 1:13 PM Care Teams Layout Man Relationship Specialty Start Date End Date Sheldon Trevizo DO [address] [place] [address] PCP - General FAMILY PRACTICE 02/20/22
--- OUTSIDE RECORDS SUMMARY | 2025-05-24 01:00 | XMS_ITS | Continuity of Care Document ---
Author Name [facility] Organization [facility] Care Team Providers Care Labor Relations Consultant Name Role Phone [facility] Unavailable Unavailable Problems Combined list of problems from Department of Defense and Veterans Affairs facilities. It does not include entries that were removed or entered in error. Problem Status Onset Date Problem Type Date of Resolution Comments Source Allergic Rhinitis (SCT [id number]) Active Condition [facility] AR - Allergic rhinitis Active Condition [facility] Benign prostatic hyperplasia Active Condition [facility] CLBP - Chronic low back pain Active Condition [facility] Eczema Active Condition [facility] Hearing loss Active Condition [facility] Hearing Loss (SCT [id number]) Active Condition [facility], [facility] HLD - Hyperlipidemia Active Condition [facility] S HTN - Hypertension Active Condition [facility] HTN - Hypertension (SCT [id number]) [facility] Hyperlipidemia (SCT 39801988) Active [facility] Impaired glucose tolerance Active Condition [facility] Low Back Pain (SCT 480384606) Active Condition Feb 11, 2019 Entered By: FLORI WHITE Comment: L5-S1 CT [facility] OA - Osteoarthritis Active Condition [facility] S OA - Osteoarthritis (SCT 356886253) Active Condition [facility] Obesity Active Condition [facility] Prediabetes Active Condition [facility] Diagnosis: ICD-10-CM Z71.9 Counseling, unspecified Active Diagnosis [facility] Diagnosis: ICD-10-CM Z23 Encounter for immunization Active Diagnosis [facility] Diagnosis: ICD-10-CM Z00.01 Encounter for general adult medical exam w abnormal findings Active Diagnosis [facility] Medications Combined list of outpatient medications [...] DAY FOR BLOOD PRESSURE ORAL ACTIVE 05/27/2025 [id number] SATHISH,CRYST AL L 2023 45 [facility] AMLODIPINE BESYLATE 10MG TAB TAKE ONE-HALF TABLET BY MOUTH EVERY DAY FOR BLOOD PRESSURE ORAL DISCONT INUED 05/14/2024 [id number] FABIOLA GUIDO 2022 45 [facility] AMLODIPINE BESYLATE 10MG TAB TAKE ONE-HALF TABLET BY MOUTH EVERY DAY ORAL ACTIVE SHANK,GLE NACE B 2018 [facility] [place] [facility] ASPIRIN 81MG TAB,EC TAKE ONE TABLET BY MOUTH EVERY DAY ORAL ACTIVE SHANK,GLE NACE B 2018 [facility], [place] [facility] ATORVASTATI N CA 40MG TAB TAKE ONE TABLET BY MOUTH EVERY DAY ORAL ACTIVE SHANK,[facility] NACE B 2018 [facility] [place] [facility] ATORVASTATI N CA 80MG TAB TAKE ONE-HALF TABLET BY MOUTH AT BEDTIME FOR CHOLESTE ROL CALL YOUR PROVIDER IF YOU HAVE MUSCLE PAIN, TENDERNE SS OR WEAKNESS ORAL ACTIVE 05/27/2025 [id number] SATHISH,CRYST AL L 2023 45 [facility] ATORVASTATI N CA 80MG TAB TAKE ONE-HALF TABLET BY MOUTH AT BEDTIME FOR CHOLESTE ROL CALL YOUR PROVIDER IF YOU HAVE MUSCLE PAIN, TENDERNE SS OR WEAKNESS ORAL DISCONT INUED 05/14/2024 [id number] FABIOLA GUIDO 2022 45 [facility] FEXOFENADIN E HCL 180MG TAB TAKE ONE TABLET BY MOUTH DAILY ORAL ACTIVE 05/27/2025 [id number] 5 SATHISH,CRYST AL L 2023 90 [facility] FEXOFENADIN E HCL 180MG TAB TAKE ONE TABLET BY MOUTH DAILY ORAL DISCONT INUED 05/14/2024 [id number] FABIOLA GUIDO 2022 90 [facility] FEXOFENADIN E HCL 180MG TAB TAKE ONE TABLET BY MOUTH EVERY DAY ORAL ACTIVE DIRK WHITE GREG B 2018 [facility] [place] [facility] FLUTICASONE PROPIONATE 50MCG/SPRAY SOLN,NASAL, 16GM 2 SPRAYS EACH NOSTRIL DAILY NASAL ACTIVE 05/27/2025 [id number] 5 SATHISH,CRYST AL L 2023 3 [facility] FLUTICASONE PROPIONATE 50MCG/SPRAY SOLN,NASAL, 16GM 2 SPRAYS EACH NOSTRIL DAILY NASAL DISCONT INUED 05/14/2024 [id number] FABIOLA GUIDO 2022 3 [facility] FLUTICASONE PROPIONATE 50MCG/SPRAY SOLN,NASAL, 16GM SQUIRT 2 SPRAYS IN EACH NOSTRIL EVERY DAY NASAL ACTIVE DIRK WHITE JUNIORE B 2018 [facility] [place] [facility] HYDROCHLORO THIAZIDE 12.5MG/ILIANA NOPRIL 20MG TAB TAKE 1 TABLET BY MOUTH DAILY FOR BLOOD PRESSURE ORAL ACTIVE 05/27/2025 [id number] SATHISH,CRYST AL L 2023 90 [facility] HYDROCHLORO THIAZIDE 12.5MG/ILIANA NOPRIL 20MG TAB TAKE 1 TABLET BY MOUTH DAILY FOR BLOOD PRESSURE ORAL DISCONT INUED 05/14/2024 [id number] FABIOLA GUIDO 2022 90 [facility] HYDROCHLORO THIAZIDE 12.5MG/ILIANA NOPRIL 20MG TAB TAKE ONE TABLET BY MOUTH EVERY DAY ORAL ACTIVE DIRK WHITE GREG B 2018 [facility] [place] [facility] MONTELUKAST NA 10MG TAB TAKE ONE TABLET BY MOUTH EVERY DAY ORAL ACTIVE 05/27/2025 [id number] SATHISH,CRYST AL L 2023 90 [facility] MONTELUKAST NA 10MG TAB TAKE ONE TABLET BY MOUTH EVERY DAY ORAL DISCONT INUED 05/14/2024 [id number] FABIOLA GUIDO 2022 90 [facility] TAMSULOSIN HCL 0.4MG CAP TAKE ONE CAPSULE BY MOUTH EVERY EVENING TAKE 30 MINUTES AFTER A MEAL ORAL ACTIVE 04/25/2026 [id number] ROBYN BASHIR 2024 90 [facility] TAMSULOSIN HCL 0.4MG CAP TAKE ONE CAPSULE BY MOUTH EVERY EVENING TAKE 30 MINUTES AFTER A MEAL ORAL DISCONT INUED 05/27/2025 [id number] SATHISH,CRYST AL L 2023 90 [facility] TRIAMCINOLO NE ACETONIDE 0.1% CREAM,TOP APPLY THIN FILM TOPICALL Y TWO TIMES A DAY NEEDED TOPICA L ACTIVE 05/27/2025 [id number] SATHISH,CRYST AL L 2023 80 [facility] TRIAMCINOLO NE ACETONIDE 0.1% CREAM,TOP APPLY THIN FILM TOPICALL Y TWICE A DAY TOPICA L ACTIVE DIRK WHITE B 2018 [facility] [place] DIV[facility] N Immunizations Combined list of available immunizations from the Department of Defense and [facility] Affairs facilities. Immunization Series Date Given Administered By Site Reaction Lot Number CVX Code Drug Torpedoman'S Mate Status Comments Source INFLUENZA, HIGH-DOSE, TRIVALENT, PF 2023 MARGY JOSHUA ROBINSON LEFT DELTO ID [id number] 135 complet ed Completed Series, ADMIN[facility] AT [facility] ZOSTER RECOMBINANT 2 2023 MARGY JOSHUA ROBINSON RIGHT DELTO ID [id number] 187 complet ed [facility] COVID-19 (MODERNA), MRNA, LNP-S, PF, 50 MCG/0.5 ML (AGES 12+ YEARS) 2023 MARGY JOSHUA ROBINSON RIGHT DELTO ID [id number] 312 complet ed Completed Series, ADMINISTE [facility] AT [facility] ZOSTER RECOMBINANT 1 2023 MARGY JOSHUA ROBINSON LEFT DELTO ID [id number] 187 complet ed [facility]MIN[facility] PNEUMOCOCCAL CONJUGATE PCV20, POLYSACCHARID E [id number] CONJUGATE, ADJUVANT, PF 1 2022 216 complet ed HISTORICA L INFORMATI ON - FROM OTHER [facility], [facility] COVID-19 (PFIZER), MRNA, LNP-S, PF, MAJO-SUCROSE, 30 MCG/0.3 ML (AGES 12+ YEARS) 6 2022 309 complet ed HISTORICA L INFORMATI ON - FROM OTHER REGISTRY, [facility] INFLUENZA, ADJUVANTED, QUADRIVALENT, PF 1 2022 205 complet ed HISTORICA L INFORMATI ON - FROM OTHER REGISTRY, [facility] COVID-19 (MODERNA), MRNA, LNP-S, BIVALENT, PF, 50 MCG/0.5 ML OR 25MCG/0.25 ML DOSE 5 2021 229 complet ed HISTORICA L INFORMATI ON - FROM OTHER REGISTRY, [facility] INFLUENZA, HIGH-DOSE, QUADRIVALENT, PF 1 2021 197 complet ed HISTORICA L INFORMATI ON - FROM OTHER REGISTRY, [facility] INFLUENZA, UNSPECIFIED FORMULATION 2021 88 complet ed HISTORICA L INFORMATI ON - FROM PATIENT'S RECALL, [facility] COVID-19 (MODERNA), MRNA, LNP-S, PF, 100 MCG/0.5ML DOSE OR 50 MCG/0.25ML DOSE 4 2021 207 complet ed HISTORICA L INFORMATI ON - FROM OTHER REGISTRY, [facility] COVID-19 (MODERNA), MRNA, LNP-S, PF, 100 MCG/0.5ML DOSE OR 50 MCG/0.25ML DOSE 3 2020 207 complet ed HISTORICA L INFORMATI ON - FROM OTHER REGISTRY, [facility] INFLUENZA, HIGH-DOSE, QUADRIVALENT, PF 1 2020 197 complet ed HISTORICA L INFORMATI ON - FROM OTHER REGISTRY, [facility] TDAP 1 2020 115 complet ed HISTORICA L INFORMATI ON - FROM OTHER REGISTRY, [facility] COVID-19 (MODERNA), MRNA, LNP-S, PF, 100 MCG/0.5ML DOSE OR 50 MCG/0.25ML DOSE 2 2020 207 complet ed [facility] COVID-19 (MODERNA), MRNA, LNP-S, PF, 100 MCG/0.5ML DOSE OR 50 MCG/0.25ML DOSE 1 2020 207 complet ed [facility] TDAP 2018 115 complet ed adacel; [id number] exp: 021 [facility] INFLUENZA, SEASONAL, INJECTABLE [address] MALLORYCARYN RojasJOHN N Results Combined list of [...] May 26, 2024 11:09 AM Reporting Lab: [address] [address] Performing Lab: [address] [address] [facility] CBC W/DIFF LEUKOCYTES [#/VOLUME] IN BLOOD BY AUTOMATED COUNT 5.4 10*3/uL 4.0 - 11.0 05/05 Specimen Type: BLOOD No comment entered. Ordering Provider: YANIQUE GUIDO Report Released Date/Time: May 10, 2023 10:08 AM Reporting Lab: [address] [address] Performing Lab: [address] [address] [facility] CBC W/DIFF ERYTHROCYT ES [#/VOLUME] IN BLOOD BY AUTOMATED COUNT 4.53 10*6/uL 4.20 - 5.70 05/05 Specimen Type: BLOOD No comment entered. Ordering Provider: YANIQUE GUIDO Report Released Date/Time: May 10, 2023 10:08 AM Reporting Lab: [address] [address] Performing Lab: [address] [address] [facility] CBC W/DIFF HEMOGLOBIN [MASS/VOLU ME] IN BLOOD 14.9 g/dL 13.0 - 17.0 05/05 Specimen Type: BLOOD No comment entered. Ordering Provider: YANIQUE GUIDO Report Released Date/Time: May 10, 2023 10:08 AM Reporting Lab: [facility] [address] [place] [address] Performing Lab: [facility] [address] [place] [phone] [facility] CBC W/DIFF HEMATOCRIT [VOLUME FRACTION] OF BLOOD BY AUTOMATED COUNT 43.1 40.0 - 51.0 05/05 Specimen Type: BLOOD No comment entered. Ordering Provider: YANIQUE GUIDO Report Released Date/Time: May 10, 2023 10:08 AM Reporting Lab: [facility] [address] [place] [phone] Performing Lab: [facility] [address] [place] [phone] [facility] CBC W/DIFF MCV [ENTITIC VOLUME] BY AUTOMATED COUNT 95.1 fL 82 - 99 05/05 Specimen Type: BLOOD No comment entered. Ordering Provider: YANIQUE GUIDO Report Released Date/Time: May 10, 2023 10:08 AM Reporting Lab: [address] [address] Performing Lab: [address] [address] [facility] CBC W/DIFF MCHC [MASS/VOLU ME] BY AUTOMATED COUNT 32.9 pg 27 - 34 05/05 Specimen Type: BLOOD No comment entered. Ordering Provider: YANIQUE GUIDO Report Released Date/Time: May 10, 2023 10:08 AM Reporting Lab: [address] [address] Performing Lab: [facility] [address] [place] [phone] [facility] CBC W/DIFF MCHC [MASS/VOLU ME] BY AUTOMATED COUNT 34.6 g/dL 31 - 37 05/05 Specimen Type: BLOOD No comment entered. Ordering Provider: YANIQUE GUIDO Report Released Date/Time: May 10, 2023 10:08 AM Reporting Lab: [address] [address] Performing Lab: [address] [address] [facility] CBC W/DIFF PLATELET MEAN VOLUME [ENTITIC VOLUME] IN BLOOD BY AUTOMATED COUNT 10.4 fL 8 - 12 05/05 Specimen Type: BLOOD No comment entered. Ordering Provider: YANIQUE GUIDO Report Released Date/Time: May 10, 2023 10:08 AM Reporting Lab: [facility] [address] [facility] [address] Performing Lab: [facility] [address] [place] [phone] [facility] CBC W/DIFF PLATELETS [#/VOLUME] IN BLOOD BY AUTOMATED COUNT 232 10*3/uL 130 - 400 05/05 Specimen Type: BLOOD No comment entered. Ordering Provider: YANIQUE GUIDO Report Released Date/Time: May 10, 2023 10:08 AM Reporting Lab: [address] [address] Performing Lab: [address] [address] [facility] CBC W/DIFF ERYTHROCYT E DISTRIBUTI ON WIDTH [RATIO] BY AUTOMATED COUNT 12.5 < 15.0 - 15.0 05/05 Specimen Type: BLOOD No comment entered. Ordering Provider: YANIQUE GUIDO Report Released Date/Time: May 10, 2023 10:08 AM Reporting Lab: [facility] [address] [place] [phone] Performing Lab: [facility] [address] [place] [phone] [facility] CBC W/DIFF NEUTROPHIL S/100 LEUKOCYTES IN BLOOD BY AUTOMATED COUNT 61.2 05/05 Specimen Type: BLOOD No comment entered. Ordering Provider: YANIQUE GUIDO Report Released Date/Time: May 10, 2023 10:08 AM Reporting Lab: [facility] [address] [place] [phone] Performing Lab: [facility] [address] [place] [phone] [facility] CBC W/DIFF LYMPHOCYTE S/100 LEUKOCYTES IN BLOOD BY AUTOMATED COUNT 23.0 05/05 Specimen Type: BLOOD No comment entered. Ordering Provider: YANIQUE GUIDO Report Released Date/Time: May 10, 2023 10:08 AM Reporting Lab: [address] [address] Performing Lab: [facility] [address] [place] [phone] [facility] CBC W/DIFF MONOCYTES/ 100 LEUKOCYTES IN BLOOD BY AUTOMATED COUNT 12.3 05/05 Specimen Type: BLOOD No comment entered. Ordering Provider: YANIQUE GUIDO Report Released Date/Time: May 10, 2023 10:08 AM Reporting Lab: [facility] [address] [facility] [address] Performing Lab: [facility] [address] [place] [phone] [facility] CBC W/DIFF EOSINOPHIL S/100 LEUKOCYTES IN BLOOD BY AUTOMATED COUNT 2.2 05/05 Specimen Type: BLOOD No comment entered. Ordering Provider: YANIQUE GUIDO Report Released Date/Time: May 10, 2023 10:08 AM Reporting Lab: [facility] [address] [place] [address] Performing Lab: [facility] [address] [place] [phone] [facility] CBC W/DIFF BASOPHILS/ 100 LEUKOCYTES IN BLOOD BY AUTOMATED COUNT 0.9 05/05 Specimen Type: BLOOD No comment entered. Ordering Provider: YANIQUE GUIDO Report Released Date/Time: May 10, 2023 10:08 AM Reporting Lab: [facility] [address] [facility] [address] Performing Lab: [facility] [address] [place] [phone] [facility] CBC W/DIFF IMMATURE GRANULOCYT ES/100 LEUKOCYTES IN BLOOD 0.4 05/05 Specimen Type: BLOOD No comment entered. Ordering Provider: YANIQUE GUIDO Report Released Date/Time: May 10, 2023 10:08 AM Reporting Lab: [facility] [address] [facility] [address] Performing Lab: [facility] [address] [facility] [address] [facility] CBC W/DIFF NEUTROPHIL S [#/VOLUME] IN BLOOD BY AUTOMATED COUNT 3.3 10*3/uL 1.5 - 8.0 05/05 Specimen Type: BLOOD No comment entered. Ordering Provider: YANIQUE GUIDO Report Released Date/Time: May 10, 2023 10:08 AM Reporting Lab: [facility] [address] [place] [phone] Performing Lab: [facility] [address] [place] [phone] [facility] CBC W/DIFF LYMPHOCYTE S [#/VOLUME] IN BLOOD BY AUTOMATED COUNT 1.2 10*3/uL 1.0 - 4.0 05/05 Specimen Type: BLOOD No comment entered. Ordering Provider: YANIQUE GUIDO Report Released Date/Time: May 10, 2023 10:08 AM Reporting Lab: [address] [address] Performing Lab: [address] [address] [facility] CBC W/DIFF MONOCYTES [#/VOLUME] IN BLOOD BY AUTOMATED COUNT 0.7 10*3/uL 0.2 - 1.0 05/05 Specimen Type: BLOOD No comment entered. Ordering Provider: YANIQUE GUIDO Report Released Date/Time: May 10, 2023 10:08 AM Reporting Lab: [address] [address] Performing Lab: [address] [address] [facility] CBC W/DIFF EOSINOPHIL S [#/VOLUME] IN BLOOD BY AUTOMATED COUNT 0.1 10*3/uL 0 - 0.4 05/05 Specimen Type: BLOOD No comment entered. Ordering Provider: YANIQUE GUIDO Report Released Date/Time: May 10, 2023 10:08 AM Reporting Lab: [address] [address] Performing Lab: [address] [address] [facility] CBC W/DIFF BASOPHILS [#/VOLUME] IN BLOOD BY AUTOMATED COUNT 0.1 10*3/uL 0 - 0.2 05/05 Specimen Type: BLOOD No comment entered. Ordering Provider: YANIQUE GUIDO Report Released Date/Time: May 10, 2023 10:08 AM Reporting Lab: [address] [address] Performing Lab: [address] [address] [facility] CBC W/DIFF IMMATURE GRANULOCYT ES/100 LEUKOCYTES IN BLOOD <0.110*3 /uL 0 - 0.5 05/05 Specimen Type: BLOOD No comment entered. Ordering Provider: YANIQUE GUIDO Report Released Date/Time: May 10, 2023 10:08 AM Reporting Lab: [address] [address] Performing Lab: [address] [address] [facility] CBC W/DIFF NUCLEATED ERYTHROCYT ES/100 ERYTHROCYT ES IN BLOOD 0.0 /100{WBC s} 0 - 0.2 05/05 Specimen Type: BLOOD No comment entered. Ordering Provider: YANIQUE GUIDO Report Released Date/Time: May 10, 2023 10:08 AM Reporting Lab: [address] [address] Performing Lab: [place] [phone] [facility] CBC W/DIFF NUCLEATED ERYTHROCYT ES [#/VOLUME] IN BLOOD <0.0110* 3/uL 0 - 0.012 05/05 Specimen Type: BLOOD No comment entered. Ordering Provider: YANIQUE GUIDO Report Released Date/Time: May 10, 2023 10:08 AM Reporting Lab: [address] [address] Performing Lab: [address] [phone] [facility] A1C % HEMOGLOBIN A1C/HEMOGL OBIN.TOTAL IN BLOOD [...] May 10, 2023 10:08 AM Reporting Lab: [address] [address] Performing Lab: [address] [phone] [facility] COMPREHE NSIVE PNL [...] May 10, 2023 10:08 AM Reporting Lab: [address] [address] Performing Lab: [address] [address] [facility] COMPREHE NSIVE PNL [...] May 10, 2023 10:08 AM Reporting Lab: [address] [address] Performing Lab: [address] [address] [facility] COMPREHE NSIVE PNL [...] May 10, 2023 10:08 AM Reporting Lab: [address] [address] Performing Lab: [address] [address] [facility] COMPREHE NSIVE PNL [...] May 10, 2023 10:08 AM Reporting Lab: [address] [address] Performing Lab: [address] [address] [facility] COMPREHE NSIVE PNL [...] May 10, 2023 10:08 AM Reporting Lab: [address] [address] Performing Lab: [place] [phone] [facility] COMPREHE NSIVE PNL [...] May 10, 2023 10:08 AM Reporting Lab: [address] [address] Performing Lab: [address] [address] [facility] COMPREHE NSIVE PNL [...] May 10, 2023 10:08 AM Reporting Lab: [place] [phone] Performing Lab: [place] [phone] [facility] COMPREHE NSIVE PNL [...] May 10, 2023 10:08 AM Reporting Lab: [address] [address] Performing Lab: [address] [address] [facility] COMPREHE NSIVE PNL [...] May 10, 2023 10:08 AM Reporting Lab: [place] [phone] Performing Lab: [place] [phone] [facility] COMPREH NSIVE PNL ALANINE AMINOTRANS FERASE [ENZYMATIC [...] May 10, 2023 10:08 AM Reporting Lab: [address] [address] Performing Lab: [place] [phone] [facility] COMPREHE NSIVE PNL [...] May 10, 2023 10:08 AM Reporting Lab: [place] [phone] Performing Lab: [place] [phone] [facility] COMPREHE NSIVE PNL [...] May 10, 2023 10:08 AM Reporting Lab: [address] [address] Performing Lab: [address] [address] [facility] COMPREHE NSIVE PNL [...] May 10, 2023 10:08 AM Reporting Lab: [address] [address] Performing Lab: [place] [phone] [facility] COMPREHE NSIVE PNL [...] May 10, 2023 10:08 AM Reporting Lab: [address] [address] Performing Lab: [address] [address] [facility] COMPREHE NSIVE PNL [...] May 10, 2023 10:08 AM Reporting Lab: [address] [address] Performing Lab: [address] [address] [facility] COMPREHE NSIVE PNL CREATININE [MASS/VOLU ME] IN [...] May 10, 2023 10:08 AM Reporting Lab: [address] [phone] Performing Lab: [address] [address] [facility] LIPID PNL CHOLESTERO L IN HDL [MASS/VOLU [...] May 10, 2023 10:08 AM Reporting Lab: [address] [address] Performing Lab: [place] [phone] [facility] LIPID PNL TRIGLYCERI DE [MASS/VOLU ME] IN [...] May 10, 2023 10:08 AM Reporting Lab: [address] [address] Performing Lab: [address] [address] [facility] LIPID PNL CHOLESTERO L IN LDL [MASS/VOLU ME] IN SERUM OR PLASMA BY DIRECT ASSAY [facility] 05/05 Specimen Type: PLASMA Comment: Low-risk levels [...] May 10, 2023 10:08 AM Reporting Lab: [address] [address] Performing Lab: [address] [address] [facility] LIPID PNL CHOLESTERO L [MASS/VOLU ME] IN [...] May 10, 2023 10:08 AM Reporting Lab: [address] [address] Performing Lab: [address] [address] [facility] LIPID PNL CHOLESTERO L IN LDL [MASS/VOLU [...] May 10, 2023 10:08 AM Reporting Lab: [address] [address] Performing Lab: [address] [address] [facility] THYROID CASCADE PANEL THYROTROPI N [UNITS/VOL UME] IN SERUM OR PLASMA 1.734 u[IU]/mL 0.550 - 4.780 05/05 Specimen Type: SERUM Comment: PSA was performed on the Siemens [employer] Immunoassay Analyzer. Deficiency <20, Insufficien cy 20-30, Sufficiency 30-100, Toxicity >100 ng/mL Ordering Provider: YANIQUE GUIDO Report Released Date/Time: May 10, 2023 10:08 AM Reporting Lab: [address] [address] Performing Lab: [address] [address] [facility] VITAMIN D 25-HYDRO XY 25-HYDROXY VITAMIN D3 [MASS/VOLU ME] IN SERUM OR PLASMA 32.40 ng/mL 30 - 100 05/05 Specimen Type: SERUM Comment: PSA was performed on the Siemens [employer] Immunoassay Analyzer. Deficiency <20, Insufficien cy 20-30, Sufficiency 30-100, Toxicity >100 ng/mL Ordering Provider: YANIQUE GUIDO Report Released Date/Time: May 10, 2023 10:08 AM Reporting Lab: [address] [id number] Performing Lab: [address] [id number] [facility] PSA TOTAL EIA PROSTATE SPECIFIC AG [MASS/VOLU ME] IN SERUM OR PLASMA 1.83 ng/mL 0.00 - 4.00 05/05 Specimen Type: SERUM Comment: PSA was performed on the [employer] Immunoassay Analyzer. Deficiency <20, Insufficien cy 20-30, Sufficiency 30-100, Toxicity >100 ng/mL Ordering Provider: YANIQUE GUIDO Report Released Date/Time: Apr 30, 2024 10:07 AM Reporting Lab: [facility] [address] [facility] [id number] Performing Lab: [facility] [address] [facility] [phone] [facility] Vital Signs Combined list of inpatient and outpatient Vital Signs from Department of [facility] and [facility], ranging from 12 months to all on record, depending upon the facility. Vital Sign Value Date Comments Source SYSTOLIC BLOOD PRESSURE 149 05/26/2024 10:36:53 [facility] DIASTOLIC BLOOD PRESSURE 73 05/26/2024 10:36:53 [facility] PULSE OXIMETRY 98 05/26/2024 10:36:53 [facility] WEIGHT 224.8 05/26/2024 10:36:53 [facility] PAIN 0 05/26/2024 10:36:53 [facility] TEMPERATURE 97.7 05/26/2024 10:36:53 [facility] PULSE 60 05/26/2024 10:36:53 [facility] RESPIRATION 20 05/26/2024 10:36:53 [facility] Encounters Combined list of: 1) Encounters from Department of Veterans Affairs facilities going backup to the last 18 months, not all CT inpatient encounters are included; 2) Encounters from the Department of [facility] facilities going backup to 280 months. Location Location Details Encounter Type Encounter Number Reason For Visit Attending Provider ADM Date DC Date Status Disposition Source [facility] Outpatient Encounter [id number] 03/04 [facility] Outpatient Encounter [id number] 05/20 [facility] Outpatient Encounter [id number] 05/26 [facility] ADMN SARSCOV2 VACC 1 DOSE [id number] Diagnos is: ICD-10- CM Z00.01 Encount er for general adult medical exam w abnorma l finding s SATHISH,KENRICK L L 05/26 [facility] Outpatient Encounter [id number] 05/26 [facility] Outpatient Encounter [id number] 05/28 [facility] Outpatient Encounter [id number] 06/02 [facility] Outpatient Encounter [id number] 06/12 [facility] Outpatient Encounter [id number] 07/09 [facility] Outpatient Encounter [id number] GERALD FOSTER 07/[address] [facility] OFF/OP EST MARCH X REQ PHY/QHP [id number] Diagnos is: ICD-10- CM Z23 Encount er for immuniz JEREMY Tadeo 08/26 [facility] Outpatient Encounter [id number] 09/15 [facility] Outpatient Encounter [id number] 09/16 [facility] Outpatient Encounter [id number] 09/25 [facility] OFF/OP EST MARCH X REQ PHY/QHP [id number] Diagnos is: ICD-10- CM Z71.9 Hat Sprayer ing, unspeci ARNULFO Hogue W 09/30 [facility] Outpatient Encounter [id number] CHINMAY VERA 03/31 [facility] Outpatient Encounter [id number] 04/20 [facility] Social History Combined list of available smoking, tobacco, and other social history from Department of Defense and Veterans Affairs facilities. Social History Type Response Date Comment Sourc e Tobacco smoking status NHIS VA-TOBACCO FORMER USER 05/26/2024 [facility] History of tobacco use VA-TOBACCO QUIT 15 YRS OR MORE 05/26/2024 [facility] History of tobacco use VA-TOBACCO FORMER USER 05/10/2023 [facility] History of tobacco use VA-TOBACCO NEVER USED 05/10/2022 [facility] History of tobacco use VA-TOBACCO QUIT 15 YRS OR MORE 01/15/2019 [facility] Plan of Care List of future care activities from Department of Veterans Affairs facilities. Additional future care activities may be listed in the Assessment and Plan section. Date/Time Care Activity Care Activity Detail Nettiei kristine 05/27/2025 AMBULATORY - NONE AMBULATORY - NONE [facility]
--- OUTSIDE RECORDS SUMMARY | 2025-05-24 01:00 | XMS_ITS | Continuity of Care Document ---
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 Name Role Phone Harley PT, DPT, Janis [...] Activities Neuromuscular Re-Ed Manual Therapy Therapeutic Activities Manual Therapy Neuromuscular Re-Ed Therapeutic Activities Therapeutic Exercise Neuromuscular Re-Ed Therapeutic Activities Therapeutic Exercise Neuromuscular Re-Ed Therapeutic Exercise Neuromuscular Re-Ed Therapeutic Activities Therapeutic Exercise Therapeutic Activities Neuromuscular Re-Ed Therapeutic Exercise Therapeutic Activities Neuromuscular Re-Ed PT Evaluation Moderate Complexity Therapeutic Exercise Therapeutic Activities Neuromuscular Re-Ed Advance Directives Directive Yes / No Effective Date File Name No Information Encounters Encounter Description Practice Location Reason(s) For Visit Diagnoses Date Provider Providers Copied on Encounter [facility] [facility] [address], [place], [place], [id number], [place] tel:[phone] [employer] No Information Harley Dial . Referring Provider: [place], [address]. tel:[phone] [facility], [address] [facility] [address], [place], [place], [id number], [place] tel:[phone] [employer] No Information Harley Janis. . Referring Provider: Jean Pierre Renee [address] [place], [address]. tel:[phone] [facility], [address] [facility] [address], [place], [place], [id number], [place] tel:[phone] [employer] No Information Harley Janis. . Referring Provider: Jean Pierre Renee [address] [place], [address]. tel:[phone] [facility], [address] [facility], [place], [place], [id number], tel:[phone] [employer] No Information Gege Pelaez[address], [address], . tel:[phone] Referring Provider: Jean Pierre Renee [address] [place], [address]. tel:[phone] [facility], [address] [address], [place], [place], [id number], [place] tel:[phone] [employer] No Information Harleyryan Riveran. . Referring Provider: Jean Pierre Renee [address] [place], [address]. tel:[phone] [facility], [address] [facility] [address], [place], [place], [id number], [place] tel:[phone] [employer] No Information Harleyryan Riveran. . Referring Provider: Jean Pierre Renee [address] [place], [address]. tel:[phone] [facility], [address] [facility] [address], [place], [place], [id number], [place] tel:[phone] [employer] No Information Harley Janis. . Referring Provider: Jean Pierre Renee, [address] [place], [address]. tel:[phone] [facility], [address] [place], [place] [address], [place], [place], [address], tel:[phone] [employer] No Information Harley Janis. . Referring Provider: Jean Pierre Renee, [address] [place], [address]. tel:[phone] [facility], [address] [facility] [address], [place], [place], [id number], [place] tel:[phone] [employer] No Information Harley Janis. . Referring Provider: Jean Pierre Renee, [address] [place], [address]. tel:[phone] [facility], [address] [facility], [place], [place], [address], [place] tel:[phone] [employer] No Information Harley Janis. . Referring Provider: Jean Pierre Renee, [address] [place], [address]. tel:[phone] [facility], [address] [facility] [address], [place], [place], [id number], tel:[phone] [employer] No Information Harley Janis. . Referring Provider: Jean Pierre Renee [address] [place], [address]. tel:[phone] [facility], [address] [facility] [address], [place], [place], [address], [place] tel:[phone] [employer] No Information Harley Janis. . Referring Provider: Jean Pierre Renee [address] [place], [address]. tel:[phone] [facility], [address] [facility] [address], [place], [place], [id number], [place] tel:[phone] [employer] No Information Harley Janis. . Referring Provider: Jean Pierre Renee, [address] [place], [address]. tel:[phone] [facility], [address] [facility] [address], [place], [place], [address], [place] tel:[phone] [employer] No Information Lázaro Zheng. . Referring Provider: Jean Pierre Renee, [address] [place], [address]. tel:[phone] [facility], [address] [facility] [address], [place], [place], [address], [place] tel:[phone] [employer] No Information Harley Janis. . Referring Provider: Jean Pierre Renee, [address] [place], [address]. tel:[phone] [facility], [address] [facility], [place], [place], [id number], [place] tel:[phone] [employer] No Information Harleyryan Rivearn. . Referring Provider: Jean Pierre Renee, [address] [place], [address]. tel:[phone] [facility], [address] [facility] [address], [place], [place], [id number], [place] tel:[phone] [employer] No Information Harleyryan Riveran. . Referring Provider: Jean Pierre Renee [address] [place], [address]. tel:[phone] [facility], [address] [facility] [address], [place], [place], [address], [place] tel:[phone] [employer] No Information Harleyryan Riveran. . Referring Provider: Jean Pierre Renee [address] [place], [address]. tel:[phone] [facility], [address] [facility] [address], [place], [place], [id number], [place] tel:[phone] [employer] No Information Harley Bruce. . Referring Provider: Jean Pierre Renee, [address] [place], [address]. tel:[phone] [facility], [address] [facility] [address], [place], [place], [id number], [place] tel:[phone] [employer] No Information Sesay Marce. . Referring Provider: Jean Pierre Renee, [address] [place], [address]. tel:[phone] [facility], [address] [facility] [address], [place], [place], [address], [place] tel:[phone] [employer] No Information Sesayvy Zheng. . Referring Provider: Jean Pierre Renee, [address] [place], [address]. tel:[phone] [facility], [address] [address], [place], [place], [address], [place] tel:[phone] [employer] No Information Harleyleander Bruce. . Referring Provider: Jean Pierre Renee, [address] [place], [address]. tel:[phone] [facility], [address] [address], [place], [place], [address], [place] tel:[phone] [employer] No Information Harley Bruce. . Referring Provider: Jean Pierre Renee [address] [place], [address]. tel:[phone] [facility], [address] [facility] [address], [place], [place], [id number], [place] tel:[phone] [employer] No Information Lázaro Zheng. . Referring Provider: Jean Pierre Renee [address] [place], [address]. tel:[phone] [facility], [address] [facility] [address], [place], [place], [address], [place] tel:[phone] [employer] No Information Harleyleander Bruce. . Referring Provider: Jean Pierre Renee, [place], [address]. tel:[phone] [facility], [address] [place] [address], [place], [place], [address], tel:[phone] [employer] No Information Harleyleander Bruce. . Referring Provider: Jean Pierre Renee, [address] [place], [address]. tel:[phone] [facility], [address] [place] [address], [place], [place], [address], [place] tel:[phone] [employer] No Information Lázaro Zheng. . Referring Provider: Jean Pierre Renee [address] [place], [address]. tel:[phone] [facility], [address] [place] [address], [id number], [place] tel:[phone] [employer] No Information Harleyryan Riveran. . Referring Provider: Jean [place], [address]. tel:[phone] [facility], [address] [place] [address], [place], [place], [id number], tel:[phone] [employer] No Information Harleyleander Bruce. . Referring Provider: Jean Pierre Renee [address] [place], [address]. tel:[phone] [facility], [address] [place] [address], [place], [place], [address], [place] tel:[phone] [employer] No Information Harleyleander Riveran. . Referring Provider: Jean Pierre Renee [address] [place], [address]. tel:[phone] Family History Family Member Type Diagnosis Age At Onset No Information Payers Payer name Insurance type Covered green party ID Authoriza tion(s) [facility] [facility] [id number] Social History Type Description Quantity Date Captured [...]
--- NOTE | 2025-05-24 07:25 | WPDHPUPDATE1 ---
History and Physical Update Update Date/Time: 05/24/25 07:25 History and Physical has been reviewed, including an updated exam of the patient. There are NO changes in the patient's condition. Risks, benefits, and alternatives have been discussed and questions answered. Patient agrees to proceed with procedure.
[2025-05-24] MEDS: ACETAMINOPHEN 500 MG TABLET 1000 MG PO (09:25)
--- NOTE | 2025-05-24 10:45 | WPDANESEPPF ---
Anes - Initial Pre Proc Eval Procedure: Operation Date: 05/24/25 11:30 Proposed Procedures p Image Guided Endoscopic Bilateral Maxillary Antrostomy, Left Anterior Ethmoidectomy with Foreign Body Removal, Bilateral Inferior Turbinate Reduction with Outfracture, - Nadeem Harris MD s Endoscopic Septoplasty - Nadeem Harris MD Date/Time: 05/24/25 10:45 Surgeon: Nadeem Harris MD Pre Op Diagnosis: dev nasal sept, sinusitis, foreign body nasal sinu Patient Data Age: 70 Gender: M Height: 1.8 m Weight: 107.8 kg Last Vital Signs Temp 36.0 C L 05/24/25 09:05 Pulse 56 L 05/24/25 09:05 BP 166/75 H 05/24/25 09:05 Pulse Ox 97 05/24/25 09:05 O2 Del Method Room Air 05/24/25 09:05 Allergies Allergy/AdvReac Type Severity Reaction Status Date / Time No Known Allergies Allergy Verified 05/24/25 09:29 Home Medications ?Medication ?Instructions ?Recorded ?Confirmed ?Type fexofenadine 180 mg tablet 180 mg PO DAILY 07/04/23 05/24/25 History (Allergy Relief (fexofenadine)) amlodipine 10 mg tablet 10 mg PO HS 08/07/23 05/24/25 History atorvastatin 80 mg tablet 40 mg PO HS 08/07/23 05/24/25 History montelukast 10 mg tablet 10 mg PO DAILY 09/24/23 05/24/25 History cyclobenzaprine 10 mg tablet See Rx Instructions .Route 11/24/24 05/17/25 Rx .COMPLEX #14 tabs lisinopril 20 1 tablet PO HS 05/17/25 05/24/25 History mg-hydrochlorothiazide 12.5 mg tablet guaifenesin 1,200 mg tablet, 1,200 mg PO BID 05/24/25 05/24/25 History extended release 12 hr (Mucinex) Patient hx anesthesia problems: none Family hx anesthesia problems: none Results Review: All pre-operative results and documents have been reviewed as part of the pre-operative evaluation. [facility] Past Medical History Medical History (Updated 05/24/25 @ 10:47 by Kofi Nix MD) Moderate aortic stenosis Abdominal pain Allergies Hyperlipidemia Hypertension Surgical History Surgical History History of right knee surgery Right Knee Replacement Social History Social History Smoking packs per day: 1 Smoking cigarettes per day: 20.0 Years smoked: 15 Smoking pack-years: 15.00 Smoking status: Former smoker Tobacco type: cigarettes Smoking end date: 11/04/04 Alcohol intake: current Drinks per week: 3 Alcohol use details: Daily Substance use: current Substance use type: marijuana Last use: 05/15/25 Lack of Transportation: No Lack of Food: Never True Current Housing: I Have Housing Concerned About Future Housing: Decline to Answer Difficulty Paying Gas/Electric Bills: Decline to Answer Difficulty Paying for Meds: Decline to Answer Currently Unemployed: Decline to Answer Education: High School Diploma/GED Difficulty w/ Childcare or Family Care: Decline to Answer Living arrangements: with family Spiritual care concerns: No Anes - Eval Final PreProcedure Day of Procedure 05/24/25 10:45 Patient weight: obese Heart: regular rate and rhythm Lungs: decreased breath sounds Airway: Mallampati scale class II Neurological: alert and oriented Last oral intake: >/= 8 hours ASA classification: III Emergent: no Anesthetic plan: proceed Anesthesia type and monitoring: general ETT and standard monitoring Results Review: All pre-operative results and documents have been reviewed as part of the pre-operative evaluation. Informed Consent: The patient's anesthetic plan and its attendant risks and benefits were discussed with the patient/family/POA. Questions were solicited and answers provided to the satisfaction of the patient/family/POA.
--- NOTE | 2025-05-24 11:48 | PM.IMHP ---
H&P: HPI History of Present Illness Date/Time: 05/24/25 11:48 Chief Complaint: Nasal congestion nasal obstruction chronic acute on recurrent on chronic sinusitis left sinonasal foreign body. Review of Systems Review of Systems: All systems reviewed & are unremarkable except as noted in HPI and below PMFSH Past Medical History Medical History (Updated 05/24/25 @ 10:47 by Kofi Nix MD) Moderate aortic stenosis Abdominal pain Allergies Hyperlipidemia Hypertension Surgical History Surgical History History of right knee surgery Right Knee Replacement Social History Social History Smoking packs per day: 1 Smoking cigarettes per day: 20.0 Years smoked: 15 Smoking pack-years: 15.00 Smoking status: Former smoker Tobacco type: cigarettes Smoking end date: 11/04/04 Alcohol intake: current Drinks per week: 3 Alcohol use details: Daily Substance use: current Substance use type: marijuana Last use: 05/15/25 Lack of Transportation: No Lack of Food: Never True Current Housing: I Have Housing Concerned About Future Housing: Decline to Answer Difficulty Paying Gas/Electric Bills: Decline to Answer Difficulty Paying for Meds: Decline to Answer Currently Unemployed: Decline to Answer Education: High School Diploma/GED Difficulty w/ Childcare or Family Care: Decline to Answer Living arrangements: with family Spiritual care concerns: No Meds Home Medications and Allergies Home Medications ?Medication ?Instructions ?Recorded ?Confirmed ?Type fexofenadine 180 mg tablet 180 mg PO DAILY 07/04/23 05/24/25 History (Allergy Relief (fexofenadine)) amlodipine 10 mg tablet 10 mg PO HS 08/07/23 05/24/25 History atorvastatin 80 mg tablet 40 mg PO HS 08/07/23 05/24/25 History montelukast 10 mg tablet 10 mg PO DAILY 09/24/23 05/24/25 History cyclobenzaprine 10 mg tablet See Rx Instructions .Route 11/24/24 05/17/25 Rx .COMPLEX #14 tabs lisinopril 20 1 tablet PO HS 05/17/25 05/24/25 History mg-hydrochlorothiazide 12.5 mg tablet guaifenesin 1,200 mg tablet, 1,200 mg PO BID 05/24/25 05/24/25 History extended release 12 hr (Mucinex) Allergies Allergy/AdvReac Type Severity Reaction Status Date / Time No Known Allergies Allergy Verified 05/24/25 09:29 Vital Signs Vital Signs - 24 hr 05/24/25 09:05 Temperature 36.0 C L Pulse Rate 56 L Blood Pressure 166/75 H Pulse Oximetry 97 Oxygen Delivery Room Air Exam Narrative: Chronic appearing sinuses septal deviation turbinate hypertrophy Assessment and Plan Assessment and plan (1) Sinusitis, acute maxillary: Qualifiers: Recurrence: recurrent Qualified Code(s): J01.01 - Acute recurrent maxillary sinusitis Code(s): J01.00 - Acute maxillary sinusitis, unspecified Status: Acute Assessment and Plan: Plan bilateral sinus surgery septoplasty inferior turbinate reduction with outfracture. Also try to remove the left metallic foreign body from the ethmoid sinuses. Please see previous documentation for discussion of risks. (2) Chronic sinusitis: Code(s): J32.9 - Chronic sinusitis, unspecified Status: Acute (3) Deviated nasal septum: Code(s): J34.2 - Deviated nasal septum Status: Acute (4) Nasal obstruction: Code(s): J34.89 - Other specified disorders of nose and nasal sinuses Status: Acute (5) Hypertrophy of both inferior nasal turbinates: Code(s): J34.3 - Hypertrophy of nasal turbinates Status: Acute (6) Nasal sinus foreign body: Code(s): T17.0XXA - Foreign body in nasal sinus, initial encounter Status: Acute (7) Nasal foreign body: Code(s): T17.1XXA - Foreign body in nostril, initial encounter Status: Acute
[2025-05-24] MEDS: ceFAZolin 2 GM in SODIUM CHLORIDE 0.9% IV 50 ML 100 ML IVPB (12:16)
[2025-05-24] MEDS: LIDO 1%/EPINEPHRINE 1:100,000 50 ML VIAL INFILTRATE (12:47)
[2025-05-24] MEDS: OXYMETAZOLINE HCL 0.05% NAS 15 ML BTL (*BKC) 1 SPRAY NASAL (12:49)
[2025-05-24] MEDS: LACTATED RINGERS 1,000 ML 30 ML IV CONT ×2 (14:30)
--- NOTE | 2025-05-24 14:47 | W.PM.PROC2 ---
Procedure Note - Detailed Date of Procedure 05/24/25 Pre-op Diagnosis dev nasal sept, sinusitis, foreign body nasal sinu Post-op Diagnosis Same Procedure Performed 1. Removal of left sinonasal foreign body in the anterior ethmoids 2. Image guided endoscopic left anterior ethmoidectomy 3. Image guided endoscopic left maxillary antrostomy 4. Image guided endoscopic right maxillary antrostomy 5. Endoscopic assisted septoplasty 6. Bilateral inferior turbinate reduction with outfracture Surgeon Nadeem Harris MD Anesthesia General Indications See above Findings Severely deviated leftward septum, tears multiple along the left knee within the left nasal septal flap none on the right, bilateral hypertrophied turbinates, left metallic foreign body in the anterior ethmoid sinus removed. Excess bleeding stopped by the end of the case. Total blood loss about 20 cc. Twenty-five. Description of Procedure Patient identified consent verified the preoperative holding area. Patient brought to the operating. Time-out performed. General anesthesia induced endotracheal tube secured airway. Patient prepped draped position procedure confirmed 2nd time-out performed. Image guidance set up and confirmed. 0 degree scope utilized throughout the case. Total of 15 cc 1% lidocaine 1 100,000 parts epinephrine injected in the bilateral nasal septum and bilateral inferior turbinates. [place] incision made left-sided 15 blade. Left nasal septal flap left nasal septal flap elevated with 7 Armenian suction. Multiple tears. Osteotome utilized to cross over. Right nasal septal flap elevated with no tears. Deviated cartilage and bone of the septum removed with Panda forceps Fremin Lucero forceps and osteotome. Turbinates were then reduced in the submucosal plane after being stabbed anteriorly with a 15 blade. The [place] 2 mm debrider was utilized. No tears. The septum was then washed out. And the anterior portion was closed with 4 interrupted 5 0 fast gut sutures. We then commenced the sinus surgery portion of the procedure. Left and right maxillary antrostomies performed under image guidance with a double ball tip probe straight through cut and backbiter. Great care was taken to ensure that the surgical os connected to the natural os. This was done by using a 30 degree scope and double ball tip probe. Attention was then turned to the left ethmoid region. Anterior ethmoidectomy performed under image guidance with [place] and up-biting through cut. Was able to retrieve a metallic foreign body measuring several mm across. The wounds were then copiously irrigated with sterile normal saline which was warmed. Bleeding stopped. Ventura splints were placed and sutured anteriorly using a 3-0 mattress nylon suture. The right was lateral to the middle turbinate the left was medial this looked much more natural. Patient tolerated the procedure well no complications blood loss 25 cc. I performed all dictated portions of the procedure. Care the patient given back to Anesthesiology. Patient was taken to PACU. Estimated Blood Loss 25 Drains No Packing No Pathology None sent Complications No immediate complications Condition Stable Disposition PACU [facility] Billing Surgery - Charge Forward: Surgery Billing
== END 2025-05-24 16:12 | disposition home or self-care (01) ==
PROVIDERS: PCP Family Medicine; Visit Provider Otolaryngology
PROC: (CPT 31254; principal; 2025-05-24 11:30)
PROC: (CPT 30520; 2025-05-24 11:30)
DX: J34.2 Deviated nasal septum (principal); J32.9 Chronic sinusitis, unspecified; J34.3 Hypertrophy of nasal turbinates; T17.0XXA Foreign body in nasal sinus, initial encounter; X58.XXXA Exposure to other specified factors, initial encounter; Z87.891 Personal history of nicotine dependence; F12.90 Cannabis use, unspecified, uncomplicated; E66.9 Obesity, unspecified; Z68.33 Body mass index [BMI] 33.0-33.9, adult
CPT/HCPCS: 31254; 31256; 61782; 30520; 30140; J0690; A9270; J0330; J1100; J2003; J2004; J2371; J2405; J2704; J3010; J7050; J7120

== ENCOUNTER 2025-07-08 01:13 | Day surgery (SDC) | payer MEDICARE, SELFPAY ==
--- OUTSIDE RECORDS SUMMARY | 2019-09-21 03:00 | XMS_ITS | Continuity of Care Document ---
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 Name Role Phone Harley PT, DPT, Janis Unavailable Unavailab le Procedures Procedure Date PT Re-Evaluation Therapeutic Activities Neuromuscular Re-Ed Therapeutic Exercise Therapeutic Activities Neuromuscular Re-Ed Therapeutic Exercise Therapeutic Activities Neuromuscular Re-Ed Therapeutic Exercise Therapeutic Activities Neuromuscular Re-Ed Therapeutic Exercise Therapeutic Activities Neuromuscular Re-Ed Therapeutic Exercise Therapeutic Activities Neuromuscular Re-Ed Therapeutic Exercise Therapeutic Activities Neuromuscular Re-Ed Therapeutic Exercise Therapeutic Activities Neuromuscular Re-Ed Therapeutic Exercise Therapeutic Activities Neuromuscular Re-Ed Therapeutic Exercise Therapeutic Activities Neuromuscular Re-Ed Therapeutic Exercise Therapeutic Activities Neuromuscular Re-Ed Therapeutic Exercise Therapeutic Activities Neuromuscular Re-Ed Therapeutic Exercise Therapeutic Activities Neuromuscular Re-Ed Therapeutic Exercise Therapeutic Activities Therapeutic Exercise Neuromuscular Re-Ed Therapeutic Activities Neuromuscular Re-Ed Therapeutic Exercise Therapeutic Activities Neuromuscular Re-Ed Therapeutic Exercise Progress Note Therapeutic Activities Therapeutic Exercise Neuromuscular Re-Ed Therapeutic Activities Neuromuscular Re-Ed Therapeutic Exercise Therapeutic Activities Neuromuscular Re-Ed Therapeutic Exercise Therapeutic Activities Neuromuscular Re-Ed Therapeutic Exercise Therapeutic Activities Neuromuscular Re-Ed Therapeutic Exercise Manual Therapy Therapeutic Activities Neuromuscular Re-Ed Therapeutic Exercise Manual Therapy Therapeutic Activities Neuromuscular Re-Ed Manual Therapy Therapeutic Activities Neuromuscular Re-Ed Manual Therapy Therapeutic Activities Therapeutic Exercise Neuromuscular Re-Ed Therapeutic Activities Therapeutic Exercise Neuromuscular Re-Ed Therapeutic Exercise Therapeutic Activities Neuromuscular Re-Ed Therapeutic Exercise Therapeutic Activities Neuromuscular Re-Ed Therapeutic Exercise Therapeutic Activities Neuromuscular Re-Ed PT Evaluation Moderate Complexity Therapeutic Activities Therapeutic Exercise Neuromuscular Re-Ed Advance Directives Directive Yes / No Effective Date File Name No Information Encounters Encounter Description Practice Location Reason(s) For Visit Diagnoses Date Provider Providers Copied on Encounter [facility] [facility] [address], [place], [place], [id number], [place] tel:[phone] [place] No Information Harley Dial . Referring Provider: [place], [address]. tel:[phone] [facility], [address] [facility] [address], [place], [place], [id number], [place] tel:[phone] [place] No Information Harley Janis. . Referring Provider: Jean Pierre Renee [address] [place], [address]. tel:[phone] [facility], [address] [facility] [address], [place], [place], [id number], [place] tel:[phone] [place] No Information Harley Janis. . Referring Provider: Jean Pierre Renee [address] [place], [address]. tel:[phone] [facility], [address] [facility], [place], [place], [id number], tel:[phone] [place] No Information Gege Pelaez[address], [address], . tel:[phone] Referring Provider: Jean Pierre Renee [address] [place], [address]. tel:[phone] [facility], [address] [address], [place], [place], [id number], [place] tel:[phone] [place] No Information Harleyryan Riveran. . Referring Provider: Jean Pierre Renee [address] [place], [address]. tel:[phone] [facility], [address] [facility], [place], [place], [id number], [place] tel:[phone] [place] No Information Harleyryan Riveran. . Referring Provider: Jean Pierre Renee [address] [place], [address]. tel:[phone] [facility], [address] [facility] [address], [place], [place], [id number], [place] tel:[phone] [place] No Information Harley Janis. . Referring Provider: Jean Pierre Renee, [address] [place], [address]. tel:[phone] [facility], [address] [place], [place] [address], [place], [place], [id number], tel:[phone] [place] No Information Harley Janis. . Referring Provider: Jean Pierre Renee, [address] [place], [address]. tel:[phone] [facility], [address] [facility], [place], [place], [id number], [place] tel:[phone] [place] No Information Harley Janis. . Referring Provider: Jean Pierre Renee, [address] [place], [address]. tel:[phone] [facility], [address] [facility], [place], [place], [id number], [place] tel:[phone] [place] No Information Harley Janis. . Referring Provider: Jean Pierre Renee, [address] [place], [address]. tel:[phone] [facility], [address] [facility], [place], [place], [id number], tel:[phone] [place] No Information Harley Janis. . Referring Provider: Jean Pierre Renee [address] [place], [address]. tel:[phone] [facility], [address] [facility], [place], [place], [id number], [place] tel:[phone] [place] No Information Harley Janis. . Referring Provider: Jean Pierre Renee [address] [place], [address]. tel:[phone] [facility], [address] [facility] [address], [place], [place], [id number], [place] tel:[phone] [place] No Information Harley Janis. . Referring Provider: Jean Pierre Renee, [address] [place], [address]. tel:[phone] [facility], [address] [facility] [address], [place], [place], [id number], [place] tel:[phone] [place] No Information Lázaro Zheng. . Referring Provider: Jean Pierre Renee, [address] [place], [address]. tel:[phone] [facility], [address] [facility] [address], [place], [place], [id number], [place] tel:[phone] [place] No Information Harley Janis. . Referring Provider: Jean Pierre Renee, [address] [place], [address]. tel:[phone] [facility], [address] [facility], [place], [place], [id number], [place] tel:[phone] [place] No Information Harleyryan Riveran. . Referring Provider: Jean Pierre Renee, [address] [place], [address]. tel:[phone] [facility], [address] [facility], [place], [place], [id number], [place] tel:[phone] [place] No Information Harleyryan Riveran. . Referring Provider: Jean Pierre Renee [address] [place], [address]. tel:[phone] [facility], [address] [facility], [place], [place], [id number], [place] tel:[phone] [place] No Information Harleyryan Riveran. . Referring Provider: Jean Pierre Renee [address] [place], [address]. tel:[phone] [facility], [address] [facility] [address], [place], [place], [id number], [place] tel:[phone] [place] No Information Harley Bruce. . Referring Provider: Jean Pierre Renee, [address] [place], [address]. tel:[phone] [facility], [address] [facility] [address], [place], [place], [id number], [place] tel:[phone] [place] No Information Sesay Marce. . Referring Provider: Jean Pierre Renee, [address] [place], [address]. tel:[phone] [facility], [address] [facility], [place], [place], [id number], [place] tel:[phone] [place] No Information Sesayvy Zheng. . Referring Provider: Jean Pierre Renee, [address] [place], [address]. tel:[phone] [facility], [address] [address], [place], [place], [id number], [place] tel:[phone] [place] No Information Harleyleander Bruce. . Referring Provider: Jean Pierre Renee, [address] [place], [address]. tel:[phone] [facility], [address] [address], [place], [place], [id number], [place] tel:[phone] [place] No Information Harley Bruce. . Referring Provider: Jean Pierre Renee [address] [place], [address]. tel:[phone] [facility], [address] [facility] [address], [place], [place], [id number], [place] tel:[phone] [place] No Information Lázaro Zheng. . Referring Provider: Jean Pierre Renee [address] [place], [address]. tel:[phone] [facility], [address] [facility] [address], [place], [place], [id number], [place] tel:[phone] [place] No Information Harleyleander Bruce. . Referring Provider: Jean Pierre Renee, [place], [address]. tel:[phone] [facility], [address] [place] [address], [place], [place], [id number], tel:[phone] [place] No Information Harleyleander Bruce. . Referring Provider: Jean Pierre Renee, [address] [place], [address]. tel:[phone] [facility], [address] [place] [address], [place], [place], [id number], [place] tel:[phone] [place] No Information Lázaro Zheng. . Referring Provider: Jean Pierre Renee [address] [place], [address]. tel:[phone] [facility], [address] [place] [address], [id number], [place] tel:[phone] [place] No Information Harleyryan Riveran. . Referring Provider: Jean Pierre [place], [address]. tel:[phone] [facility], [address] [place] [address], [place], [id number], tel:[phone] [place] No Information Harleyleander Bruce. . Referring Provider: Jean Pierre Renee [address] [place], [address]. tel:[phone] [facility], [address] [place] [address], [place], [place], [id number], [place] tel:[phone] [place] No Information Harleyleander Riveran. . Referring Provider: Jean Pierre Renee [address] [place], [address]. tel:[phone] Family History Family Member Type Diagnosis Age At Onset No Information Payers Payer name Insurance type Covered democrat ID Authoriza tion(s) [employer] [facility] [id number] Social History Type Description Quantity Date Captured Comments Alcohol Use Details Unknown Caffeine Use Details Unknown Tobacco Use Status No Information Smoking Status No Information Non-Smoking Tobacco Use Details : No Details Available : No Details Available : No Details Available : No Details Available : No Details Available : No Details Available Sex Male Chief Complaint And Reason For Visit No Information Reason For Referral Reason For Referral No Information Plan Of Treatment Date Type Action Status Referral Ordered: PCP timeframe: 1 week. (related to Overweight) ordered History Of Present Illness Encounter Date Complaint History Of Prese nt Illness No Information Functional Status Date Functional Assessmen t Pain Score 3/10 Pain Score 3/10 Pain Score 3/10 Instructions Date Instruction Additional Infor mation No Information Assessments Type Assessment Date No Information Patient Care Teams Name Effective Dates (start - stop) Status Members No Information
[2025-07-01 12:23] VITALS: BMI 33.5
[2025-07-08 10:14] VITALS: BP 137/72; PULSE 70; RESP 18; TEMP 36.5; O2SAT 97
[2025-07-08] MEDS: LACTATED RINGERS 1,000 ML 150 ML IV CONT (10:24)
--- NOTE | 2025-07-08 10:31 | WPDANESEPPF ---
Anes - Initial Pre Proc Eval Procedure: Operation Date: 07/08/25 11:00 Proposed Procedures p Diagnostic Colonoscopy - Nick Irene MD Date/Time: 07/08/25 10:31 Surgeon: Nick Irene MD Pre Op Diagnosis: melena Patient Data Age: 70 Gender: M Height: 1.8 m Weight: 106.9 kg Last Vital Signs Temp 97.7 F 07/08/25 10:14 Pulse 70 07/08/25 10:14 Resp 18 07/08/25 10:14 BP 137/72 07/08/25 10:14 Pulse Ox 97 07/08/25 10:14 O2 Del Method Room Air 07/08/25 10:14 Allergies Allergy/AdvReac Type Severity Reaction Status Date / Time No Known Allergies Allergy Verified 07/08/25 10:14 Home Medications ?Medication ?Instructions ?Recorded ?Confirmed ?Type fexofenadine 180 mg tablet 180 mg PO DAILY 07/04/23 07/01/25 History (Allergy Relief (fexofenadine)) amlodipine 10 mg tablet 10 mg PO HS 08/07/23 07/01/25 History atorvastatin 80 mg tablet 40 mg PO HS 08/07/23 07/01/25 History montelukast 10 mg tablet 10 mg PO DAILY 09/24/23 07/01/25 History lisinopril 20 1 tablet PO HS 05/17/25 07/01/25 History mg-hydrochlorothiazide 12.5 mg tablet tamsulosin 0.4 mg capsule 0.4 mg PO DAILY 06/10/25 07/01/25 History Results Review: All pre-operative results and documents have been reviewed as part of the pre-operative evaluation. [facility] Past Medical History Medical History Moderate aortic stenosis Abdominal pain Allergies Hyperlipidemia Hypertension Surgical History Surgical History History of right knee surgery Right Knee Replacement Social History Social History Smoking packs per day: 1 Smoking cigarettes per day: 20.0 Years smoked: 15 Smoking pack-years: 15.00 Smoking status: Former smoker Tobacco type: cigarettes Smoking end date: 11/04/04 Alcohol intake: current Drinks per week: 3 Alcohol use details: Daily Substance use: current Substance use type: marijuana Other substance usage details: Edibles Last use: 07/01/2025 Lack of Transportation: No Lack of Food: Never True Current Housing: I Have Housing Concerned About Future Housing: Decline to Answer Difficulty Paying Gas/Electric Bills: Decline to Answer Difficulty Paying for Meds: Decline to Answer Currently Unemployed: Decline to Answer Education: High School Diploma/GED Difficulty w/ Childcare or Family Care: Decline to Answer Living arrangements: with family Additional living arrangements comments: with sp Spiritual care concerns: No Anes - Eval Final PreProcedure Day of Procedure 07/08/25 10:31 Patient weight: normal Heart: regular rate and rhythm Lungs: clear to auscultation Neurological: alert and oriented Last oral intake: >/= 8 hours Emergent: no Anesthetic plan: proceed Results Review: All pre-operative results and documents have been reviewed as part of the pre-operative evaluation. Informed Consent: The patient's anesthetic plan and its attendant risks and benefits were discussed with the patient/family/POA. Questions were solicited and answers provided to the satisfaction of the patient/family/POA.
--- NOTE | 2025-07-08 10:54 | PM.HPGS ---
History of Present Illness History of Present Illness Consent: Risks, benefits, and alternatives have been discussed and questions answered. Patient agrees to proceed with procedure. Chief complaint: occult blood stool Narrative: Dominick Bowen is a 70 year old male with occult blood in stool, had colonoscopy years ago Review of Systems Review of Systems: All systems reviewed & are unremarkable except as noted in HPI and below PMFSH Past Medical History Medical History (Updated 07/08/25 @ 10:55 by Nick Irene MD) Occult blood positive stool Moderate aortic stenosis Abdominal pain Allergies Hyperlipidemia Hypertension Surgical History Surgical History History of right knee surgery Right Knee Replacement Social History Social History Smoking packs per day: 1 Smoking cigarettes per day: 20.0 Years smoked: 15 Smoking pack-years: 15.00 Smoking status: Former smoker Tobacco type: cigarettes Smoking end date: 11/04/04 Alcohol intake: current Drinks per week: 3 Alcohol use details: Daily Substance use: current Substance use type: marijuana Other substance usage details: Edibles Last use: 07/01/2025 Lack of Transportation: No Lack of Food: Never True Current Housing: I Have Housing Concerned About Future Housing: Decline to Answer Difficulty Paying Gas/Electric Bills: Decline to Answer Difficulty Paying for Meds: Decline to Answer Currently Unemployed: Decline to Answer Education: High School Diploma/GED Difficulty w/ Childcare or Family Care: Decline to Answer Living arrangements: with family Additional living arrangements comments: with sp Spiritual care concerns: No Meds Home Medications and Allergies Home Medications ?Medication ?Instructions ?Recorded ?Confirmed ?Type fexofenadine 180 mg tablet 180 mg PO DAILY 07/04/23 07/01/25 History (Allergy Relief (fexofenadine)) amlodipine 10 mg tablet 10 mg PO HS 08/07/23 07/01/25 History atorvastatin 80 mg tablet 40 mg PO HS 08/07/23 07/01/25 History montelukast 10 mg tablet 10 mg PO DAILY 09/24/23 07/01/25 History lisinopril 20 1 tablet PO HS 05/17/25 07/01/25 History mg-hydrochlorothiazide 12.5 mg tablet tamsulosin 0.4 mg capsule 0.4 mg PO DAILY 06/10/25 07/01/25 History Allergies Allergy/AdvReac Type Severity Reaction Status Date / Time No Known Allergies Allergy Verified 07/08/25 10:14 Vital Signs Vital Signs - 24 hr 07/08/25 10:14 Temperature 97.7 F Pulse Rate 70 Respiratory Rate 18 Blood Pressure 137/72 Pulse Oximetry 97 Oxygen Delivery Room Air Exam Const: General: comfortable and no acute distress HENMT: Face/Nose/Sinus: Normal nares present Eyes: General: appearance normal, both eyes and all related structures Neck: Neck: no JVD Resp: Auscultation: clear to auscultation bilaterally Cardio: Rate: regular rate Rhythm: regular rhythm GI: Inspection: non-distended GI Palp: Yes Soft to palpation Skin: General skin exam: normal color Neuro: Speech: normal speech Extrem: General: normal to inspection Psych: Mental Status: mental status grossly normal Assessment and Plan Assessment and plan (1) Occult blood positive stool: Code(s): R19.5 - Other fecal abnormalities Status: Acute Assessment and Plan: colonoscopy
--- NOTE | 2025-07-08 11:11 | S_PTH ---
PATIENT: Dominick Bowen LOC: [facility]#:[id number] AGE/SX: 70/M ROOM: RE07/08/[address]: Nick Irene MD : 1955 BED: DIS: 07/08/2025 SPEC #: [id number] RECD: 07/08/25 12:12 STATUS: LISHA REMirna #: [id number] ONEL: 07/08/25 11:[address]: Nick Irene DEPT: [facility] Surgical RECD BY: Helen De Paz ENTERED: 07/08/25 12:13 SP TYPE: Surgical OTHR DR: Sheldon Trevizo DO Tissues: A - Colon Polypectomy B - Colon Polypectomy Procedures: Hematoxylin and Eosin Stain Gross and Microscopic Level 4
[2025-07-08 11:12] VITALS: BP 118/71; PULSE 56; RESP 24; O2SAT 96
[2025-07-08 11:22] VITALS: BP 117/97; PULSE 50; RESP 17; O2SAT 96
[2025-07-08 11:32] VITALS: BP 129/65; PULSE 52; RESP 18; O2SAT 99
--- NOTE | 2025-07-08 13:36 | WPDANESEPPF ---
Anes - Initial Pre Proc Eval Procedure: Operation Date: 07/08/25 11:00 Proposed Procedures p Diagnostic Colonoscopy - Nick Irene MD Date/Time: 07/08/25 13:36 Surgeon: Nick Irene MD Pre Op Diagnosis: occult blood stool Patient Data Age: 70 Gender: M Height: 1.8 m Weight: 106.9 kg Last Vital Signs Temp 97.7 F 07/08/25 10:14 Pulse 52 L 07/08/25 11:32 Resp 18 07/08/25 11:32 BP 129/65 07/08/25 11:32 Pulse Ox 99 07/08/25 11:32 O2 Del Method Room Air 07/08/25 11:32 Allergies Allergy/AdvReac Type Severity Reaction Status Date / Time No Known Allergies Allergy Verified 07/08/25 10:14 Home Medications ?Medication ?Instructions ?Recorded ?Confirmed ?Type fexofenadine 180 mg tablet 180 mg PO DAILY 07/04/23 07/01/25 History (Allergy Relief (fexofenadine)) amlodipine 10 mg tablet 10 mg PO HS 08/07/23 07/01/25 History atorvastatin 80 mg tablet 40 mg PO HS 08/07/23 07/01/25 History montelukast 10 mg tablet 10 mg PO DAILY 09/24/23 07/01/25 History lisinopril 20 1 tablet PO HS 05/17/25 07/01/25 History mg-hydrochlorothiazide 12.5 mg tablet tamsulosin 0.4 mg capsule 0.4 mg PO DAILY 06/10/25 07/01/25 History Patient hx anesthesia problems: none Family hx anesthesia problems: none Results Review: All pre-operative results and documents have been reviewed as part of the pre-operative evaluation. [facility] Past Medical History Medical History (Updated 07/08/25 @ 10:55 by Nick Irene MD) Occult blood positive stool Moderate aortic stenosis Abdominal pain Allergies Hyperlipidemia Hypertension Surgical History Surgical History History of right knee surgery Right Knee Replacement Social History Social History Smoking packs per day: 1 Smoking cigarettes per day: 20.0 Years smoked: 15 Smoking pack-years: 15.00 Smoking status: Former smoker Tobacco type: cigarettes Smoking end date: 11/04/04 Alcohol intake: current Drinks per week: 3 Alcohol use details: Daily Substance use: current Substance use type: marijuana Other substance usage details: Edibles Last use: 07/01/2025 Lack of Transportation: No Lack of Food: Never True Current Housing: I Have Housing Concerned About Future Housing: Decline to Answer Difficulty Paying Gas/Electric Bills: Decline to Answer Difficulty Paying for Meds: Decline to Answer Currently Unemployed: Decline to Answer Education: High School Diploma/GED Difficulty w/ Childcare or Family Care: Decline to Answer Living arrangements: with family Additional living arrangements comments: with sp Spiritual care concerns: No Anes - Eval Final PreProcedure Day of Procedure 07/08/25 13:36 Patient weight: obese Heart: regular rate and rhythm Lungs: clear to auscultation Airway: Mallampati scale class II Neurological: alert and oriented Last oral intake: >/= 8 hours ASA classification: III Emergent: no Anesthetic plan: proceed Anesthesia type and monitoring: general GIVS and standard monitoring Results Review: All pre-operative results and documents have been reviewed as part of the pre-operative evaluation. Informed Consent: The patient's anesthetic plan and its attendant risks and benefits were discussed with the patient/family/POA. Questions were solicited and answers provided to the satisfaction of the patient/family/POA.
== END 2025-07-08 11:44 | disposition home or self-care (01) ==
PROVIDERS: PCP Family Medicine; Visit Provider Internal Medicine Gastroenterology
PROC: 0DJD8ZZ Inspection of Lower Intestinal Tract, Via Natural or Artificial Opening Endoscopic (ICD-10-PCS; CPT 45378; principal; 2025-07-08 11:00)
DX: R19.5 Other fecal abnormalities (principal); D12.2 Benign neoplasm of ascending colon; K63.5 Polyp of colon; K57.30 Diverticulosis of large intestine without perforation or abscess without bleeding; Z87.891 Personal history of nicotine dependence; F12.90 Cannabis use, unspecified, uncomplicated
CPT/HCPCS: 45385; 45380; 88305; J2003; J2704; J7120